=== PATIENT | male | born 1985 | race Caucasian/White ===

== ENCOUNTER 2024-03-19 14:21 | Outpatient (OUT) | payer OTHER, SELFPAY ==
--- NOTE | 2024-03-19 14:22 | VEIN_ITS ---
Patient Name: PETEY WADSWORTH MR#: [id number] : 1985 Exam Date: 03/19/2024 Ordering Doctor: DR DAMIEN LYNCH M.D. RADIOLOGY REPORT PROCEDURE: [facility] - OFFICE VISIT INITIAL COMPARISON: None. PROGRESS NOTES: 36-year-old male who presents with a 20 year history of lower extremity pain swelling and varicose veins which started when he was in high school. The patient complains of dull aching, subcutaneous edema and muscle cramping, bilaterally symmetric. The patient rates the pain as a 3 on a scale of 1-10. The patient's symptoms are exacerbated by sitting and standing and are only partially relieved by rest, leg elevation, oral over the counter analgesics and compression stockings which she has worn for many years. 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 The patient denies any signs and symptoms to suggest arterial ischemia. The patient describes a family history significant for varicose veins in his mother, type 2 diabetes, heart disease, congestive heart failure and hypertension. No current medications. The patient drinks alcohol occasionally. The patient has never smoked. No illicit drug use. Past surgical history is significant for hernia repair. No history of deep venous thrombus or pulmonary embolus. See separate history and physical for medication list. No parotid treatment for varicose or spider veins. Nursing notes were reviewed. After history and physical exam I discussed at length the pathophysiology of venous hypertension and possible treatments, therapies and strategies available. We discussed at length the importance of elevating the lower extremities above the level of the heart, increased physical activity and compression stocking use. We discussed nonsurgical intervention including compression stockings. We discussed surgical interventions including ligation stripping and phlebectomy. We discussed intravenous laser ablation, micro foam chemical ablation and injection sclerotherapy at length. Risks benefits and alternatives were discussed with the patient's questions were answered. I did discuss with the patient that he had severe bilateral deep vein reflux which could not be repaired at this time. I recommended long-term use of bilateral knee or thigh-high 20-30 mm compression stockings. Ultrasound venous reflux study performed the same day was discussed at length with the patient. The report demonstrates severe bilateral great saphenous, moderate bilateral small saphenous and moderate left anterior accessory saphenous vein venous insufficiency with dilatation saphenofemoral/saphenous popliteal junction reflux. Severe bilateral deep vein reflux. Bilateral incompetent perforating veins. Extensive bilateral incompetent varicose veins PHYSICAL EXAM: The right leg demonstrates extensive varicose, reticular and spider veins. Some mild hemosiderin staining below the knee. Mild subcutaneous edema. No active ulceration. The left leg demonstrates extensive varicose, reticular and spider veins. Some mild hemosiderin staining below the knee. Mild subcutaneous edema. No active ulceration. Both thighs, legs and feet were symmetrically warm to the touch. Good posterior tibial and dorsalis pedis pulses were present bilaterally. VEIN/VC Facility EST Comprehensive IMPRESSION: 1. Severe bilateral great, moderate bilateral small and moderate left anterior accessory saphenous vein venous insufficiency with dilatation and saphenofemoral/saphenopopliteal junction reflux 2. Severe bilateral deep vein reflux. Severe bilateral incompetent lower extremity varicose veins 3. Mild lower extremity subcutaneous edema with mild hemosiderin stain 4. No flow significant arterial disease 5. CEAP: C4a, Ep, Asp, Pr PLAN: 1. Endovenous laser ablation left great saphenous vein followed by right great saphenous vein followed by left anterior accessory saphenous vein followed by right small saphenous vein followed by left small saphenous vein 2. Micro foam chemical ablation bilateral incompetent varicose veins 3. Injection sclerotherapy of reticular and spider veins 4. Long-term use of bilateral knee or thigh-high 20-30 mm compression stockings 5. Continue daily physical activity for symptomatic relief Nurse notes, history and physical were reviewed and confirmed, see attached forms. The nurse was present throughout the physical exam and consultation Dictated by: Damien Lynch MD on 03/20/2024 at 07:50 Approved by: Damien Lynch MD on 03/20/2024 at 08:07
--- NOTE | 2024-03-19 14:22 | VEIN_ITS ---
Patient Name: PETEY WADSWORTH MR#: [id number] : 1985 Exam Date: 03/19/2024 Ordering Doctor: DR DAMIEN LYNCH M.D. RADIOLOGY REPORT PROCEDURE: VC EXT VENOUS REFLUX SURYA LMTD COMPARISON: None. INDICATIONS: I83.813 Bilateral painful varicose veins TECHNIQUE: Duplex imaging of the lower extremity to assess the deep and superficial venous system for the presence of deep or superficial venous incompetence and to document the location and severity of disease. The study includes evaluation of the great saphenous vein (GSV), anterior accessory saphenous vein (AASV) and small saphenous vein (SSV). Patient scanned in reverse Trendelenburg and standing. FINDINGS: RIGHT LOWER EXTREMITY: Saphenofemoral Junction Reflux: Yes 13.2mm 3.6 sec GSV: Diam (mm) Reflux/ Time (sec) Proximal Thigh 10.8 Yes 2.4 Mid Thigh 9.9 Yes 3.8 Distal Thigh 10.3 Yes 3.9 Prox Calf 7.5 Yes 2.4 Mid Calf 7.1 Yes 0.8 Saphenopopliteal Junction Reflux: 3.4mm Yes 0.4 SSV: Proximal Calf 2.8 Yes 0.4 Mid Calf 4.6 Yes 2.0 AASV: Not present Thrombi: No acute or chronic thrombus. Compressibility: Normal. Flow: Severe deep venous reflux. Preforator: Distal medial lower leg 7.9 mm, 0.7s reflux. Prox/medial lower leg 5.7 mm with 1.1s reflux. Prox posterior calf 6.9mm with 2.4s reflux. Tech Note: Incompetent varicose vein proximal medial lower leg measures 15.2mm with 1.6s reflux. Varicose vein mid medial lower leg measures 9.7 mm with 0.6s reflux. Medial knee varicose vein measures 12.6 mm with 3.6s reflux. Varicose vein mid medial calf measures 8.6 mm with 0.7s reflux. LEFT LOWER EXTREMITY: Saphenofemoral Junction Reflux: Yes 8.9 mm 3.0 sec GSV: Diam (mm) Reflux/Time (sec) Proximal Thigh 7.9 Yes 3.5 Mid Thigh 7.5 Yes 2.3 Distal Thigh 4.9 Yes 3.2 Prox Calf 8.0 Yes 3.8 Mid Calf 5.6 Yes 2.0 Saphenopopliteal Junction Relux: 2.8 mm Yes 0.8 SSV: Proximal Calf 3.7 Yes 1.7 Mid Calf 4.6 Yes 1.5 AASV: Proximal Thigh 6.6 Yes 2.5 Mid Thigh 6.1 Yes 1.9 Distal Thigh Thrombi: No acute or chronic thrombus. Compressibility: Normal. Flow: Severe deep venous reflux. Amusement Equipment Operator: Dist/medial lower leg 5.0mm with 3.2s reflux. Prox/medial lower leg 5.7 mm with 1.0s reflux. Tech Note: Tortuous AASV. Incompetent varicose vein distal posterior lower leg measures 6.2 mm with 3.7s reflux. Varicose vein proximal medial lower leg measures 6.6mm with 3.1s reflux. Varicose vein proximal medial thigh measures 10.2mm with 2.0s reflux. Varicose vein mid medial thigh measures 7.1 mm with 1.0s reflux. Medial knee varicose vein measures 9.4 mm with 2.7s reflux. CONCLUSION: 1. Severe bilateral great saphenous vein venous insufficiency with dilatation and saphenofemoral junction reflux 2. Moderate bilateral small saphenous vein venous insufficiency with dilatation 3. Moderate left anterior accessory saphenous vein venous insufficiency with dilatation 4. Severe bilateral deep vein reflux 5. Bilateral incompetent perforating veins 6. Bilateral incompetent varicose veins Dictated by: Damien Lynch MD on 03/19/2024 at 15:34 Approved by: Damien Lynch MD on 03/19/2024 at 15:56
--- NOTE | 2024-03-19 15:29 | W.VEIN ---
Discharge Plan Discharge Disposition: Home, Self-Care Outpatient Diagnostics: VC Endovenous Ablation 1VeinLT (Routine) Timeframe: 2 Weeks Facility: [facility] - Location: Vein Center Ordered By: Damien Lynch Plan of Treatment: EVLT of left GSV Patient Instructions: Endovenous Ablation (GEN) Print Language: Swedish Discharge Date/Time: 03/19/24 15:30
--- NOTE | 2024-03-19 15:31 | VEINCLINIC_ITS ---
Vital Signs 03/19/24 16:19 Height 6 ft 3 in Weight 215 kg BMI 59.2 BP 114/62 BP Location Right Brachial BP Position Sitting BP Cuff Size Adult BP Source Manual Cuff Respiration 16 Pulse 62 Pulse Source Monitor Pulse Oximetry (%) 99 Oxygen Delivery Method Room Air Varicose Veins Patient is a 38 year old male in this day with c/o bilateral leg pain and edema and muscle cramping. Patient has worn bilateral leg knee high compression stockings for approximately 2 years with good resolve. Patient has family history of varicose vein disease in his mother. Patient has no history of DVT. Damien Oneal MD personally performed the services described in this documentation, as scribed by Basilio Linn RN in my presence and it is both accurate and complete. IBasilio RN, am scribing for, and in the presence of, Dr. Damien Lynch and in the presence of the patient. thigh: bilateral (symptoms bilaterally equal), knee: bilateral, calf: bilateral, ankle: bilateral and manning: bilateral aching, burning, cramping and tender 4 2 years Worsened in recent months: Yes standing elevating extremities, compression stockings and exercise Reports muscle spasms of leg, limb pain and leg edema History of lower extremity trauma: No Superficial thrombophlebitis: No Family history of varicose veins: yes Has patient had previous lower extremity venous surgery: No Patient has previously received the following treatment(s) for lower extremity varicose veins: Reports none Does patient have a history of : not applicable Does patient intend to have future pregnancies: not applicable Has patient had lower extremity venous scan with relux testing: No Support hose used: Yes Problems walking or doing physical activity: Yes How does it affect you: pain affects activity tolerance Do you walk much: Yes Do you stand much: Yes Review of Systems ROS Narrative Damien Oneal MD personally performed the services described in this documentation, as scribed by Basilio Linn RN in my presence and it is both accurate and complete. Basilio Oneal RN, am scribing for, and in the presence of, Dr. Damien Lynch and in the presence of the patient. Status of ROS 10 or more systems reviewed and unremark able except as noted in history and below Cardiovascular Reports: edema PFSH PFSH Medical History (Updated 03/19/24 @ 16:21 by Basilio Linn) Hernia ?K46.9 - Unspecified abdominal hernia without obstruction or gangrene (ICD- 10) Varicose veins of bilateral lower extremities with pain ?I83.813 - Varicose veins of bilateral lower extremities with pain (ICD-10) Surgical History (Updated 03/19/24 @ 16:21 by Basilio Linn) H/O hernia repair ?Z98.890 - Other specified postprocedural states (ICD-10) ?Z87.19 - Personal history of other diseases of the digestive system (ICD-10) Family History (Updated 03/19/24 @ 15:36 by Basilio Linn) Other Family history of CHF (congestive heart failure) Family history of diabetes mellitus Family history of hypertension Family history of myocardial infarction Pain due to varicose veins of both lower extremities Social History (Updated 03/19/24 @ 15:35 by Basilio Linn) Within the past year, how often did you have a drink containing alcohol: 2-4 times a month Smoking status: Never smoker Non-prescribed substance use: denies use Meds Home Medications and Allergies Home Medications ?Medication ?Instructions ?Recorded ?Confirmed ?Type No Known Home Medications 03/19/24 03/19/24 History Allergies Allergy/AdvReac Type Severity Reaction Status Date / Time No Known Drug Allergies Allergy Verified 03/19/24 16:21 Exam Narrative Exam Narrative: Damien Oneal MD personally performed the services described in this documentation, as scribed by Basilio Linn RN in my presence and it is both accurate and complete. Baislio Oneal RN, am scribing for, and in the presence of, Dr. Damien Lynch and in the presence of the patient. Constitutional Documenting provider has reviewed patient's vital signs: yes Common normals: oriented x3 Lymph Lymphatic: no lymphedema noted Cardio Peripheral pulses: posterior tibial pulses present and dorsalis pedis pulses present Extremity Common normals: normal capillary refill General: calf tenderness and edema Right lower extremity: lower leg Right lower leg: inspection and palpation Left lower extremity: lower leg Left lower leg: inspection and palpation Neuro Common normals: oriented x3 Results Additional Findings Additional findings: Bilateral leg reflux u/s reveals bilateral leg great saphenous vein and left anterior accessory saphenous vein disease along with branch saphenous truncal tributary varicosities Damien Oneal MD personally performed the services described in this documentation, as scribed by Basilio Linn RN in my presence and it is both accurate and complete. I, Basilio Linn RN, am scribing for, and in the presence of, Dr. Damien Lynch and in the presence of the patient. Assessment and Plan Assessment and Plan (1) Varicose veins of bilateral lower extremities with pain: Plan Patient to continue use of bilateral leg knee high compression stockings, exercise, rest, and elevation Patient to return for EVLTs of left GSV right GSV and left AASV. Once EVLT's complete, move forward with microfoam chemical ablation IDamien MD personally performed the services described in this documentation, as scribed by Basilio Linn RN in my presence and it is both accurate and complete. I, Basilio Linn RN, am scribing for, and in the presence of, Dr. Damien Lynch and in the presence of the patient.
[2024-03-19 16:19] VITALS: BP 114/62; PULSE 62; O2SAT 99; BMI 59.2
== END 2024-03-19 15:30 | disposition home or self-care (01) ==
PROVIDERS: PCP Radiology Diagnostic Radiology; Visit Provider Radiology Diagnostic Radiology
DX: I83.813 Varicose veins of bilateral lower extremities with pain (principal)
CPT/HCPCS: 93970; G0463

== ENCOUNTER 2024-03-31 07:56 | Outpatient (OUT) | payer OTHER, SELFPAY ==
--- NOTE | 2024-03-27 15:42 | VEINCLINIC_ITS ---
Vital Signs 03/31/24 08:17 BP 102/60 BP Location Right Brachial BP Position Sitting BP Cuff Size Adult BP Source Manual Cuff Respiration 16 Pulse 78 Pulse Source Monitor Pulse Oximetry (%) 98 Oxygen Delivery Method Room Air Varicose Veins Patient in this day for EVLT of left GSV Damien Oneal MD personally performed the services described in this documentation, as scribed by Basilio Linn RN in my presence and it is both accurate and complete. Basilio Oneal RN, am scribing for, and in the presence of, Dr. Damien Lynch and in the presence of the patient. thigh: bilateral (symptoms bilaterally equal), knee: bilateral, calf: bilateral, ankle: bilateral and manning: bilateral aching, burning, cramping and tender 4 2 years Worsened in recent months: Yes standing elevating extremities, compression stockings and exercise Reports muscle spasms of leg, limb pain and leg edema History of lower extremity trauma: No Superficial thrombophlebitis: No Family history of varicose veins: yes Has patient had previous lower extremity venous surgery: No Patient has previously received the following treatment(s) for lower extremity varicose veins: Reports none Does patient have a history of : not applicable Does patient intend to have future pregnancies: not applicable Has patient had lower extremity venous scan with relux testing: No Support hose used: Yes Problems walking or doing physical activity: Yes How does it affect you: pain affects activity tolerance Do you walk much: Yes Do you stand much: Yes Review of Systems ROS Narrative Damien Oneal MD personally performed the services described in this documentation, as scribed by Basilio Linn RN in my presence and it is both accurate and complete. Basilio Oneal RN, am scribing for, and in the presence of, Dr. Damien Lynch and in the presence of the patient. Status of ROS 10 or more systems reviewed and unremark able except as noted in history and below Cardiovascular Reports: edema PFSH PFS Medical History (Updated 03/27/24 @ 15:48 by Basilio Linn) Phlebitis and thrombophlebitis of superficial vessels of left lower extremity ?I80.02 - Phlebitis and thrombophlebitis of superficial vessels of left lower extremity (ICD-10) Hernia ?K46.9 - Unspecified abdominal hernia without obstruction or gangrene (ICD- 10) Varicose veins of bilateral lower extremities with pain ?I83.813 - Varicose veins of bilateral lower extremities with pain (ICD-10) Surgical History (Updated 03/31/24 @ 08:28 by Basilio Linn) Status post laser ablation of incompetent vein ?Z98.890 - Other specified postprocedural states (ICD-10) H/O hernia repair ?Z98.890 - Other specified postprocedural states (ICD-10) ?Z87.19 - Personal history of other diseases of the digestive system (ICD-10) Family History (Updated 03/19/24 @ 15:36 by Basilio Linn) Other Family history of CHF (congestive heart failure) Family history of diabetes mellitus Family history of hypertension Family history of myocardial infarction Pain due to varicose veins of both lower extremities Social History (Updated 03/19/24 @ 15:35 by Basilio Linn) Within the past year, how often did you have a drink containing alcohol: 2-4 times a month Smoking status: Never smoker Non-prescribed substance use: denies use Meds Home Medications and Allergies Home Medications ?Medication ?Instructions ?Recorded ?Confirmed ?Type No Known Home Medications 03/19/24 03/19/24 History Allergies Allergy/AdvReac Type Severity Reaction Status Date / Time No Known Drug Allergies Allergy Verified 03/19/24 16:21 Exam Narrative Exam Narrative: Damien Oneal MD personally performed the services described in this documentation, as scribed by Basilio Linn RN in my presence and it is both accurate and complete. Basilio Oneal RN, am scribing for, and in the presence of, Dr. Damien Lynch and in the presence of the patient. Constitutional Documenting provider has reviewed patient's vital signs: yes Common normals: oriented x3 Lymph Lymphatic: no lymphedema noted Cardio Peripheral pulses: posterior tibial pulses present and dorsalis pedis pulses present Extremity Common normals: normal capillary refill General: calf tenderness and edema Right lower extremity: lower leg Right lower leg: inspection and palpation Left lower extremity: lower leg Left lower leg: inspection and palpation Neuro Common normals: oriented x3 Assessment and Plan Assessment and Plan (1) Varicose veins of bilateral lower extremities with pain: Plan f/u evaluation with physician along with left leg limited u/s Damien Oneal MD personally performed the services described in this documentation, as scribed by Basilio Kaveh RN in my presence and it is both accurate and complete. I, Basilio Linn RN, am scribing for, and in the presence of, Dr. Damien Lynch and in the presence of the patient. Procedures Procedure Instructions Procedures Plan of care: Risks and benefits of the procedure were discussed at length and informed written consent was obtained.? Time-out completed for verification of correct patient, procedure and site.? Staff present during time-out: Basilio Linn RN,? Damien Lynch MD, Elinor Gamez [facility] Time Out Time__829 Patient prepped and procedure performed in usual sterile fashion. Risk of injury related to use of Diode laser and/or laser devices?__CR___ ? Serial number of laser used :? [id number] Control panel self test performed, electrical cords in good condition, floor is dry, basin of water available, fire extinguisher in close proximity_CR__ Polycarbonate goggles available and Laser warning signs outside of doors___CR__ Eye protection provided to patient and staff in room_CR___ Use of laser retardant drapes and dull blackened instruments as directed__CR___ Use of nonflammable prep solutions and use of saline soaked sponges to protect tissues as indicated _CR___ Length __68 cm Laser operated by __Dr. Lynch Physician verbal confirmation laser locked in place__CR__ Laser start time (date and time) __03/31/2024@__0845 Laser stop time(date and time) __03/31/2024@_0852 [place] _8.0___ Average laser use __3298 Joules Average laser use___412 seconds Pulse continuous ___CR_? Pulse intermittent ___ Amount of Tumescent used _275cc Evaluated patient for signs and symptoms of electrical injury __CR___ ? Skin clear at insertion site __CR___ Patient tolerated procedure well.? Left leg Coban dressing applied to access site.? Applied Left thigh high leg compression stocking. Will return on 04/07/2024 for Left leg limited venous ultrasound and exam. IDamien MD personally performed the services described in this documentation, as scribed by Basilio Linn RN in my presence and it is both accurate and complete. I, Basilio Linn RN, am scribing for, and in the presence of, Dr. Damien Lynch and in the presence of the patient.
--- NOTE | 2024-03-27 15:48 | W.VEIN ---
Discharge Plan Discharge Disposition: Home, Self-Care Outpatient Diagnostics: VC Facility EST LMTD (Routine) Timeframe: 2 Weeks Facility: [facility] - Location: Vein Center Ordered By: Damien Lynch VC EXT Venous LT Limited (Routine) Timeframe: 2 Weeks Facility: [facility] - Location: Vein Center Ordered By: Damien Lynch Follow Up Appointments: 04/07/2024 Plan of Treatment: f/u evaluation with physician along with left leg limited u/s Patient Instructions: Endovenous Ablation (DC) Print Language: Yoruba Discharge Date/Time: 03/31/24 08:31
[2024-03-31] MEDS: 0.9 % SODIUM CHLORIDE 500 ML, LIDOCAINE HCL 20 ML, SODIUM BICARBONATE 10 MEQ INJ (07:57)
[2024-03-31] MEDS: LIDOCAINE HCL 1% 100 MG/10 ML MDV INJ (07:57)
--- NOTE | 2024-03-31 07:58 | VEIN_ITS ---
[address] [address] Patient Name: PETEY WADSWORTH MRN: [id number] date: 1985 Sex: M Assigned Patient Location: Current Patient Location: Accession/Order Number: [id number] Exam Date: 03/31/2024 08:02 Report Date: 03/31/2024 09:30 At the request of: MARYAM JORDAN Procedure: VC Endovenous Ablation 1VeinLT EXAMINATION: VC Endovenous Ablation 1Vein, left great saphenous vein HISTORY: I83.813 - Varicose veins of bilateral lower extremities w... COMPARISON: No relevant comparison available. TECHNIQUE: The risks and benefits of the procedure had been previously discussed, and were rediscussed at length. Informed written consent was obtained. Oneyda Gamez and Basilio Linn assisted. Time out procedure was performed. The left lower extremity was prepared and draped in the usual sterile fashion to allow knee flexion in the sterile field. Duplex ultrasound probe was draped in a sterile cover, sterile transmission gel was used. Venous mapping was performed with the areas of dilation and large tributaries marked. The total length was 68 cm from the entry 5 cm above the medial malleolus to 3 cm below the saphenofemoral junction. The diameter of the greater saphenous vein ranged from 4-8 mm. A 30 gauge needle and 1% buffered lidocaine was used to anesthetize the entry site. A 4 mm incision was made with a scalpel and the saphenous vein was entered percutaneously under direct ultrasound guidance with a micropuncture set, a single stick was successful in gaining access. A micro-guide wire was inserted and the needle removed. A micro-set including a dilator was inserted over the microwire and the needle and dilator were removed. A 0.018 guide wire was inserted through the micro-set and threaded through the saphenous vein to the saphenofemoral junction. The dilator was removed and an introducer sheath was inserted over the wire until the end of the sheath entered the saphenofemoral junction. The dilator and wire were removed and the 600 micron fiber was introduced and placed and positioned so that it extended beyond the sheath and was 3 cm peripheral to the saphenofemoral femoral junction. Final position of the fiber was determined by ultrasound guidance and duplex imaging. Tumescent anesthetic was delivered by ultrasound guidance. 275 cc of fluid was delivered along the entire course of the saphenous vein. The solution consisted of 1000 cc of normal saline with 40 mL of 1% lidocaine and 20 mL of sodium bicarbonate. A final positioning check was made. The energy source was turned on by means of the foot pedal and the fiber and sheath were withdrawn. The total number of Joules delivered was 3298. The laser was active for 412 seconds under continuous pulse, average laser use of 8 J. Laser start time 845 AM 03/31/2024. Laser stop time 852AM 03/31/2025. A duplex ultrasound revealed compressibility and flow at the saphenofemoral junction immediately after the procedure. Hemostasis at the access site was achieved. The skin incision of the saphenous vein was closed with a 4 x 4. A compression stocking was applied. Postop instructions were given. A follow up appointment was recommended and scheduled. The patient tolerated the procedure well and was discharged in good condition. VEIN/VC Endovenous Ablation 1VeinLT IMPRESSION: Technically successful endovenous laser ablation of the left great saphenous vein Electronically authenticated by: MARYAM JORDAN Date: 03/31/2024 09:30
[2024-03-31 08:17] VITALS: BP 102/60; PULSE 78; O2SAT 98
== END 2024-03-31 08:31 | disposition home or self-care (01) ==
LOC: VC 07:57
PROVIDERS: PCP Radiology Diagnostic Radiology; Visit Provider Radiology Diagnostic Radiology
DX: I83.813 Varicose veins of bilateral lower extremities with pain (principal)
CPT/HCPCS: 36478

== ENCOUNTER 2024-04-07 14:22 | Outpatient (OUT) | payer OTHER, SELFPAY ==
[2024-04-07 09:19] VITALS: BMI 26.9
--- NOTE | 2024-04-07 09:19 | V.VEINS.HP ---
Vital Signs 04/07/24 09:19 Height 6 ft 3 in Weight 97.522 kg BMI 26.9 Varicose Veins Patient in today for follow up ultrasound of left lower extremity following EVLT of left GSV completed on 03/31/24. Jeremías Oneal MD personally performed the services described in this documentation, as scribed by Elinor Gamez RDMS in my presence and it is both accurate and complete. Elinor Oneal RDMS, am scribing for, and in the presence of, Dr. Jeremías Silveira and in the presence of the patient. thigh: bilateral (symptoms bilaterally equal), knee: bilateral, calf: bilateral, ankle: bilateral and manning: bilateral aching, burning, cramping and tender 4 2 years Worsened in recent months: Yes standing elevating extremities, compression stockings and exercise Reports muscle spasms of leg, limb pain and leg edema History of lower extremity trauma: No Superficial thrombophlebitis: No Family history of varicose veins: yes Has patient had previous lower extremity venous surgery: No Patient has previously received the following treatment(s) for lower extremity varicose veins: Reports none Does patient have a history of : not applicable Does patient intend to have future pregnancies: not applicable Has patient had lower extremity venous scan with relux testing: No Support hose used: Yes Problems walking or doing physical activity: Yes How does it affect you: pain affects activity tolerance Do you walk much: Yes Do you stand much: Yes Review of Systems ROS Narrative Jeremías Oneal MD personally performed the services described in this documentation, as scribed by Elinor Gamez RDMS in my presence and it is both accurate and complete. Elinor Oneal RDMS, am scribing for, and in the presence of, Dr. Jeremías Silveira and in the presence of the patient. Status of ROS 10 or more systems reviewed and unremarkable except as noted in history and below Cardiovascular Reports: edema PFSH [facility] Medical History (Updated 03/27/24 @ 15:48 by Basilio Linn) Phlebitis and thrombophlebitis of superficial vessels of left lower extremity ?I80.02 - Phlebitis and thrombophlebitis of superficial vessels of left lower extremity (ICD-10) Hernia ?K46.9 - Unspecified abdominal hernia without obstruction or gangrene (ICD-10) Varicose veins of bilateral lower extremities with pain ?I83.813 - Varicose veins of bilateral lower extremities with pain (ICD-10) Surgical History (Updated 03/31/24 @ 08:28 by Basilio Linn) Status post laser ablation of incompetent vein ?Z98.890 - Other specified postprocedural states (ICD-10) H/O hernia repair ?Z98.890 - Other specified postprocedural states (ICD-10) ?Z87.19 - Personal history of other diseases of the digestive system (ICD-10) Family History (Updated 03/19/24 @ 15:36 by Basilio Linn) Other Family history of CHF (congestive heart failure) Family history of diabetes mellitus Family history of hypertension Family history of myocardial infarction Pain due to varicose veins of both lower extremities Social History (Updated 03/19/24 @ 15:35 by Basilio Linn) Within the past year, how often did you have a drink containing alcohol: 2-4 times a month Smoking status: Never smoker Non-prescribed substance use: denies use Meds Home Medications and Allergies Home Medications ?Medication ?Instructions ?Recorded ?Confirmed ?Type No Known Home Medications 03/19/24 03/19/24 History Allergies Allergy/AdvReac Type Severity Reaction Status Date / Time No Known Drug Allergies Allergy Verified 03/19/24 16:21 Exam Narrative Exam Narrative: Jeremías Oneal MD personally performed the services described in this documentation, as scribed by Elinor Gamez RDMS in my presence and it is both accurate and complete. Elinor Oneal RDMS, am scribing for, and in the presence of, Dr. Jeremías Silveira and in the presence of the patient. Constitutional Documenting provider has reviewed patient's vital signs: yes Common normals: oriented x3 Lymph Lymphatic: no lymphedema noted Cardio Peripheral pulses: posterior tibial pulses present and dorsalis pedis pulses present Extremity Common normals: normal capillary refill General: calf tenderness and edema Right lower extremity: lower leg Right lower leg: inspection and palpation Left lower extremity: lower leg Left lower leg: inspection and palpation Neuro Common normals: oriented x3 Results Imaging Venous US: Radiologist's impression: Heat induced thrombus in left GSV Jeremías Oneal MD personally performed the services described in this documentation, as scribed by Elinor Gamez RDMS in my presence and it is both accurate and complete. Jm, Elinor Gamez RDMS, am scribing for, and in the presence of, Dr. Jeremías Silveira and in the presence of the patient. Assessment and Plan Assessment and Plan (1) Phlebitis and thrombophlebitis of superficial vessels of left lower extremity: Plan Plan is for patient to return for EVLT of right GSV on I, Jeremías Silveira MD personally performed the services described in this documentation, as scribed by Elinor Gamez RDMS in my presence and it is both accurate and complete. I, Elinor Gamez RDMS, am scribing for, and in the presence of, Dr. Jeremías Silveira and in the presence of the patient.
--- NOTE | 2024-04-07 14:22 | VEIN_ITS ---
Patient Name: PETEY WADSWORTH MR#: [id number] : 1985 Exam Date: 04/07/2024 Ordering Doctor: DR MARYAM JORDAN M.D. RADIOLOGY REPORT PROCEDURE: FACILITY [facility] - OFFICE VISIT FOLLOW UP COMPARISON: None. PROGRESS NOTES: The patient reports improvement in leg symptoms. There has been interval reduction in varicosities. The patient has followed our recommendations to walk 20-30 minutes once or twice per day since the procedure. Physical exam demonstrates decrease in varicosities of the leg. Persistent varicosities are identified along the legs bilaterally. Review of the ultrasound performed the same day demonstrates occlusive thrombus extending throughout the treated vein(s), see separate report, consistent with a successful ablation. No thrombus extending into or beyond the saphenofemoral junction. The patient expressed a desire to proceed with treatment of remaining incompetent varicosities. The patient was informed that treatment was a process and would require several procedures/sessions. VEIN/ Facility EST [facility] IMPRESSION: 1. Successful ablation of the left great saphenous vein(s). 2. Persistent varicose veins and lower extremity symptoms. PLAN: 1. Endovenous laser ablation of right great saphenous vein. Nurse notes, history and physical were reviewed and confirmed, see attached forms. The nurse was present throughout the physical exam and consultation Dictated by: Jeremías Silveira M.D. on 04/07/2024 at 15:20 Approved by: Jeremías Silveira M.D. on 04/07/2024 at 15:20
--- NOTE | 2024-04-07 14:22 | VEIN_ITS ---
Patient Name: PETEY WADSWORTH MR#: [id number] : 1985 Exam Date: 04/07/2024 Ordering Doctor: DR MARYAM JORDAN M.D. RADIOLOGY REPORT PROCEDURE: VC EXT VENOUS LT LIMITED COMPARISON: None. INDICATIONS: I80.02 - Phlebitis and thrombophlebitis of superficial ve... TECHNIQUE: Lower extremity lewis scale and Duplex Doppler evaluation of the deep venous system from the inguinal ligament through the calf veins. FINDINGS: REGION: Left lower extremity. THROMBI: Negative for DVT. Heat induced thrombus visualized 3.0cm from the SFJ. The heat induced thrombus extends from groin to distal calf. COMPRESSIBILITY: Non-compressible segments corresponding to thrombus FLOW: Areas of no flow corresponding to thrombus OTHER: CONCLUSION: 1. Successful post ablation occlusion of left great saphenous vein. Dictated by: Jeremías Silveira M.D. on 04/07/2024 at 15:18 Approved by: Jeremías Silveira M.D. on 04/07/2024 at 15:19
--- NOTE | 2024-04-07 14:38 | VEINCLINIC_ITS ---
Vital Signs 04/07/24 09:19 Height 6 ft 3 in Weight 97.522 kg BMI 26.9 Varicose Veins Patient in this day for follow up ultrasound post EVLT of left GSV Jeremías Oneal MD personally performed the services described in this documentation, as scribed by Angelina Rosen RVT, RDMS in my presence and it is both accurate and complete. Angelina Oneal RVT, RDMS am scribing for, and in the presence of, Dr. Jeremías Silveira and in the presence of the patient. thigh: bilateral (symptoms bilaterally equal), knee: bilateral, calf: bilateral, ankle: bilateral and manning: bilateral aching, burning, cramping and tender 4 2 years Worsened in recent months: Yes standing elevating extremities, compression stockings and exercise Reports muscle spasms of leg, limb pain and leg edema History of lower extremity trauma: No Superficial thrombophlebitis: No Family history of varicose veins: yes Has patient had previous lower extremity venous surgery: No Patient has previously received the following treatment(s) for lower extremity varicose veins: Reports none Does patient have a history of : not applicable Does patient intend to have future pregnancies: not applicable Has patient had lower extremity venous scan with relux testing: No Support hose used: Yes Problems walking or doing physical activity: Yes How does it affect you: pain affects activity tolerance Do you walk much: Yes Do you stand much: Yes Review of Systems ROS Narrative Jeremías Oneal MD personally performed the services described in this documentation, as scribed by Angelina Rosen RVT, RDMS in my presence and it is both accurate and complete. Angelina Oneal RVT, RDMS, am scribing for, and in the presence of, Dr. Jeremías Silveira and in the presence of the patient. Status of ROS 10 or more systems reviewed and unremark able except as noted in history and below Cardiovascular Reports: edema PFSH PFSH Medical History (Updated 03/27/24 @ 15:48 by Basilio Linn) Phlebitis and thrombophlebitis of superficial vessels of left lower extremity ?I80.02 - Phlebitis and thrombophlebitis of superficial vessels of left lower extremity (ICD-10) Hernia ?K46.9 - Unspecified abdominal hernia without obstruction or gangrene (ICD- 10) Varicose veins of bilateral lower extremities with pain ?I83.813 - Varicose veins of bilateral lower extremities with pain (ICD-10) Surgical History (Updated 03/31/24 @ 08:28 by Basilio Linn) Status post laser ablation of incompetent vein ?Z98.890 - Other specified postprocedural states (ICD-10) H/O hernia repair ?Z98.890 - Other specified postprocedural states (ICD-10) ?Z87.19 - Personal history of other diseases of the digestive system (ICD-10) Family History (Updated 03/19/24 @ 15:36 by Basilio Linn) Other Family history of CHF (congestive heart failure) Family history of diabetes mellitus Family history of hypertension Family history of myocardial infarction Pain due to varicose veins of both lower extremities Social History (Updated 03/19/24 @ 15:35 by Basilio Linn) Within the past year, how often did you have a drink containing alcohol: 2-4 times a month Smoking status: Never smoker Non-prescribed substance use: denies use Meds Home Medications and Allergies Home Medications ?Medication ?Instructions ?Recorded ?Confirmed ?Type No Known Home Medications 03/19/24 03/19/24 History Allergies Allergy/AdvReac Type Severity Reaction Status Date / Time No Known Drug Allergies Allergy Verified 03/19/24 16:21 Exam Narrative Exam Narrative: Jeremías Oneal MD personally performed the services described in this documentation, as scribed by Angelina Rosen RVT, RDMS in my presence and it is both accurate and complete. Angelina Oneal RVT, RDMS, am scribing for, and in the presence of, Dr. Jeremías Silveira and in the presence of the patient. Constitutional Documenting provider has reviewed patient's vital signs: yes Common normals: oriented x3 Lymph Lymphatic: no lymphedema noted Cardio Peripheral pulses: posterior tibial pulses present and dorsalis pedis pulses present Extremity Common normals: normal capillary refill General: calf tenderness and edema Right lower extremity: lower leg Right lower leg: inspection and palpation Left lower extremity: lower leg Left lower leg: inspection and palpation Neuro Common normals: oriented x3 Results Imaging Venous US: Radiologist's impression: The ultrasound demonstrates Heat induced thrombus visualized 3.0cm from the SFJ. The heat induced thrombus extends from groin to distal calf. Assessment and Plan Assessment and Plan (1) Phlebitis and thrombophlebitis of superficial vessels of left lower extremity: Plan Patient in today for follow up ultrasound of lower extremity following treatment of EVLT of left leg GSV completed on 03/31/24. Jeremías Oneal MD personally performed the services described in this documentation, as scribed by Angelina Rosen RVT, RDMS in my presence and it is both accurate and complete. Angelina Oneal RVT, RDMS, am scribing for, and in the presence of, Dr. Jeremías Silveira and in the presence of the patient.
--- NOTE | 2024-04-07 14:40 | P.DS_ITS ---
Discharge Plan Discharge Disposition: Home, Self-Care Outpatient Diagnostics: VC Endovenous Ablation 1VeinRT (Routine) Timeframe: 2 Weeks Facility: [facility] - Location: [facility] Center Ordered By: Jeremías Silveira Follow Up Appointments: 04/25/24 Plan of Treatment: EVLT of right leg GSV Print Language: Ken[place] Discharge Date/Time: 04/07/24 15:26
--- OUTSIDE RECORDS SUMMARY | 2024-04-07 14:42 | XMS_ITS | CCD ---
Author Organization [facility] Care Team Providers Care Press Cleaner Name Role Phone Terese Duff Unavailable NIKKI, DR MARYAM Grigsby Consulting Unavailable NIKKI, DR MARYAM Grigsby Attending Unavailable NIKKI, DR MARYAM Grigsby Admitting Unavailable NIKKI, DR MARYAM Grigsby Consulting Unavailable NIKKI, DR MARYAM Grigsby Attending Unavailable NIKKI, DR MARYAM Grigsby Admitting Unavailable Danyel, Cheyanne Coon Attending Unavailable Danyel, Cheyanne Coon Admitting Unavailable Jacqueline Owens Primary Care Unavailable MD Jacqueline Owens Primary Care Provider Danyel, [facility] Cheyanne Coon Emergency Provider Unavailable Primary Care Provider Unavailguilherme coon PACK BRANDON Referring Unavailable YULIANA AGUILAR Attending Unavailable PACK, BRANDON Attending Unavailable PACK, BRANDON Attending Unavailable Unavailable Primary Care Provider UnavailJacqueline Mckinney MD Primary Care Provider CATIE CARRILLO Attending Unavailable CATIE CARRILLO Referring Unavailable AMADA BLEVINS Attending Unavailable CATIE CARRILLO Attending Unavailable CATIE CARRILLO Referring Unavailable Medications Current Medications Medication Drug Class(es) Dates Sig (Normalized) Sig (Original) acetaminophen 500 mg oral capsule (3 sources) Acetaminophen 50 0 mg cap Take 500 mg by mouth as needed. Active Comment on above: Take 500 mg by mouth as needed. [id number] 200 actuat albuterol 0.09 mg/actuat metered dose inhaler (6 sources) beta2-Adrenergic Agonist Start: 03-31-2023 End: 03-30-2024 take 2 puff(s) by inhalation every four hours for wheezing albuterol HFA 90 mcg/act inhaler Indications: Acute bronchitis, unspecified organism Inhale 2 puffs every 4 (four) hours if needed for wheezing 18 g 11 03/31/2023 03/30/2024 Active amoxicillin 875 mg oral tablet (1 source) Penicillin-class Antibacterial Start: 09-19-2021 take 1 tablet by mouth every twelve hours Amoxicillin 875 MG 1 tablet Orally every 12 hrs for 7 days Sep, Active azithromycin 250 mg oral tablet (6 sources) Macrolide Antimicrobial Start: 03-31-2023 azithromycin (Zithromax) 250 MG tablet Indications: Acute bronchitis, unspecified organism Take two tab on day one, one tab per day on day two through through five 6 tablet 03/31/2023 Active cephalexin 500 mg oral capsule (1 source) Cephalosporin Antibacterial Start: 11-05-2022 take 500 mg by mouth four times daily Cephalexin Active 500 MG PO Four times daily 40 November 05, 2022 12:00am levoFLOXacin 750 mg oral tablet (1 source) Quinolone Antimicrobial Start: 11-05-2022 take 750 mg by mouth once daily Levofloxacin Active 750 MG PO Daily 7 November 05, 2022 12:00am linaclotide 0.29 mg oral capsule (2 sources) Guanylate Cyclase-C Agonist Start: 06-13-2023 take 1 capsule by mouth once daily in the morning linaCLOtide (LINZESS) 290 mcg capsule Take 1 capsule by mouth daily at 6 am. 30 capsule 5 06/13/2023 Active Comment on above: Take 1 capsule by mo [facility] daily at 6 am. pantoprazole 40 mg delayed release oral tablet (2 sources) Proton Pump Inhibitor Start: 08-21-2023 take 1 tablet by mouth once daily pantoprazole DR (PROTONIX) 40 mg tablet Take 1 tablet by mouth once daily. 30 tablet 2 08/21/2023 Active Start: 06-13-2023 End: 06-20-2023 take 1 tablet by mouth once daily pantoprazole DR (PROTONIX) 40 mg tablet Take 1 tablet by mouth once daily. 30 tablet 5 06/13/2023 06/20/2023 Discontinued Comment on above: [facility] Completed/Discontinued Medications Medication Drug Class(es) Dates Sig (Normalized) Sig (Original) fluticasone propionate 0.05 mg/actuat metered dose nasal spray (1 source) Corticosteroid Start: 02-28-202 1 take 1 spray(s) nasal route once daily Fluticasone Propionate 50 MCG/ACT 1 spray in each nostril Nasally Once a day for 30 day(s) May, Not-Taking methylPREDNISolone 4 mg oral tablet (1 source) Corticosteroid Start: 1 Medrol (Daryl) 4 MG half of daily dose in the morning with food and the rest at night with food Orally May, Not-Taking omeprazole 20 mg delayed release oral capsule (17 sources) Proton Pump Inhibitor Start: 3 End: 4 take 1 capsule by mouth once daily omeprazole (PRILOSEC) 20 mg capsule Indications: Gastroesophageal reflux disease, unspecified whether esophagitis present Take 1 capsule by mouth once daily. 30 capsule 2 03/14/2023 06/20/2023 Discontinued Start: 10-18-2022 take 1 capsule by mo uth before mealtime omeprazole (PriLOSEC) [address] capsule Indications: Gastroesophageal reflux disease without esophagitis Take 1 capsule (40 mg) by mouth in the morning. Take before meals. 90 capsule 1 10/18/2022 Active Comment on above: Take 1 capsule by mo uth once daily. take 1 capsule by mo uth once daily Problems Active Problems Problem Classification Problem Date Documented Da te Episodic/Chronic Cardiac dysrhythmias (6 sources) Irregular heart beat; Translations: [Cardiac arrhythmia, unspecified] Onset: 3 10-18-2022 Chronic Esophageal disorders (10 sources) Gastroesophageal reflux disease; Translations: [Gastro-esophageal reflux disease without esophagitis] Onset: 3 03-14-2023 Chronic Fracture of lower limb (1 source) Fracture of phalanx of foot; Translations: [Unspecified fracture of left toe(s), initial encounter for closed fracture] 11-05-2022 Episodic Gastrointestinal hemorrhage (5 sources) Hematochezia; Translations: [Melena] 04-25-2018 Episodic Joint disorders and dislocations; trauma-related (6 sources) Derangement of left knee; Translations: [Unspecified internal derangement of left knee] 02-01-2024 Chronic Open wounds of extremities (1 source) Laceration of foot; Translations: [Laceration without foreign body, unspecified foot, initial encounter] 11-05-2022 Episodic Other gastrointestinal disorders (3 sources) Constipation; Translations: [Constipation, unspecified] 04-25-2018 Episodic Other gastrointestinal disorders (1 source) Diarrhea; Translations: [Diarrhea, unspecified] 06-01-2023 Episodic Other lower respiratory disease (1 source) Cough; Translations: [Cough] Episodic Other nervous system disorders (6 sources) Chronic pain; Translations: [Other chronic pain] Onset: 3 10-18-2022 Chronic Other non-traumatic joint disorders (4 sources) Pain in left knee; Translations: [Pain in joint, lower leg] 02-03-2024 Episodic Other upper respiratory disease (6 sources) Allergic rhinitis; Translations: [Allergic rhinitis, unspecified] Onset: 3 10-18-2022 Chronic Spondylosis; intervertebral disc disorders; other back problems (6 sources) Lumbar arthritis; Translations: [Spondylosis without myelopathy or radiculopathy, lumbar region] Onset: 3 10-18-2022 Chronic Superficial injury; contusion (1 source) Contusion of foot; Translations: [Contusion of right foot, initial encounter] 11-05-2022 Episodic Unclassified (1 source) Unspecified fracture of right toe(s), initial encounter for closed fracture; Translations: [Unspecified fracture of right toe(s), initial encounter for closed fracture] Onset: 3 Varicose veins of lower extremity (4 sources) Varicose veins of bilateral lower extremities with pain; Translations: [VARICOSE VNS SURYA LOW EXTREM W/PAIN] Onset: 3 Episodic Past or Other Problems Problem Classification Problem Date Documented Da te Episodic/Chronic Otitis media and related conditions (1 source) Otitis media, unspecified, right ear Onset: 09-19-2021 Resolved: 09-19-2021 Episodic Unclassified (1 source) Cough R05.9 Onset: 09-19-2021 Resolved: 09-19-2021 Viral infection (1 source) COVID-19 Onset: 09-19-2021 Resolved: 09-19-2021 Results Test Name Value Interpretation Reference Range Facility MR KNEE LEFT WO IV CONTRASTo n 02-22-2024 MR KNEE LEFT WO IV CONTRAST EXAMINATION/TECHNIQU E: MR KNEE LEFT WO IV CONTRAST HISTORY: Left knee pain. Lateral pain for 6 to 8 months. No recent injury. COMPARISON: Radiographs 12/20/2023. RESULT: MENISCI: Medial Meniscus: Intact Lateral Meniscus: Intact LIGAMENTS: ACL, PCL, MCL, and LCL complex intact. CARTILAGE: Small area of full-thickness fissuring involving the central trochlea. TENDONS: Distal quadriceps intact. Patellar tendon intact. Popliteus intact. BONES AND MARROW: No evidence of fracture or bone marrow replacing process. MUSCLES: Muscle bulk and signal intensity are normal. JOINT FLUID AND SYNOVIUM: No joint effusion. No synovitis. No Fuentes's cyst. OTHER: Varicose vessels medially. IMPRESSION: Intact menisci and ligaments. Mild trochlear chondromalacia. ELECTRONICALLY SIGNED BY: Sincere Mcnair MD Normal Not Available Comment on above: Order Comment: MRI L T knee w/o at [facility]. Orbits if needed. Eval for meniscus tear. XR Knee - left 1 or 2 Viewso n 12-20-2023 Imaging Result: December 19, 2013 x-rays AP weight-bearing bilateral knees and lateral of the left knee demonstrate open joint spaces without collapse. No areas of uike-hq-fhys. No sclerosis. No fractures detected. Neutral alignment. Impression: No acute findings on x-rays of the left knee Trace Levy D.O. [facility] Radiology Study observation (narrative) [facility] XR Knee - left 1 or 2 ViewsO rdered By: Anthony Levy on 12-20-2023 [facility] [employer] Work Phone: SURGICAL PATHOLOGYOrdered By : Tara Wilkinson on 06-13-2023 Case Report Surgical Pathology Report Case: [id number] Authorizing Provider: Anthony Mejia MD Collected: 06/12/2023 09:40 AM Ordering Location: Ambulatory Surgery Received: 06/12/2023 10:31 PM Pathologist: Tara Wilkisnon MD Specimens: A) - DUODENUM BIOPSY B) - RECTAL POLYP, x2 [facility] Work Phone: FINAL DIAGNOSIS t5cewAJkYMMryQRkKDFz PBukpaYbJHUxfHWbH0Pk pwiiWBjxLT6hCV1zeQwh pMVlkUCjHTJlZuSjv3lh f180nYVxl9btNXKOljnb yDu7zYawH44qt8M3Moke F65chYLwYNN7GFQdAUNm aNVqBATmPZN5FDDuxRGa V6qhZXSrIR8saynjHUuo LUktZTKtnBC7XMVmgSBm U1HcWDPbZDkiMRYkvxx6 HjRiSh9rrCXzzCybTIbg YXJkXHBsYWluXGZzMjAg DK6wNZN8b5WjldCsNVDf bN2ui5z7NXPsovLmVVY9 d0JbybFgRI20F75mQCU9 vFHfJU5rVMRhN68lJpey AB27SPDhVMwnr0W9xEUv GJz4NCOlzZrcyt7kuDYk VY1fTj7sGOBhSCGlI6Cb z4PlC9GzqXKoNGDen8Ep n5Vqg1ViMLHrNRBmuDKd tx5pzRJcFJTjgyJRAdDy UmVjdGFsIHBvbHlwIHgg MiqkIvtoeFR6PnqeSUJo SXBQqlVelLVcsFWcx0Eq aHlwZXJwbGFzdGljIHBv bHlwLlxwYXJ9 [facility] Work Phone: Gross Description r4cuwSGhBEZpcEYOTFL4 YFIfBU2qkWxyrVv3lGdc KWUwedT5eOIoSJpvu6qr PMB0c0glfzUPLhxzEMBo MB8tCUdzGQYdND1dMuJh XGRlZmYxXHBhcGVydzEy NjCoOJUrcDQcaJE6FVVi DL8cxvotCOkoRKjwZCEj rlU7JYZpzFKxF3FyBXKo DW7jqniqLCQ1GLWULshf Pm4aeWTehKkjLmWrIfJj BHMjOFFkAPDaq0tzzuBL cnrtxJy9lT1QTCExA3Ki UY9Hg8hkTNHawFSbCTT2 PLfrx7mbCCytAWH4NJHd NTBwMMDoDI8JSoGwROX6 TNyrCOK1HmH7GOk3YMDT MQBbFXNgGkH7QMDoKFi0 OTkgXFxuaCBcXHQgMSBc DXPlRSvclyK2n7weGQWe jOXlKCG2PTkck4tqFOeb NNY3DNIlLvLaENAwSU0O QrPiCFX9AEeqWIO3PzF3 QBw6EPZWPhKhUiLgEQq2 QlVmNyLzRBx3EIl7TEiX JwXmKiB5DwXwAqliImQ1 NDYyNyBcXHQgMiBcXHNz DBKiMQffrPKuRU7fkFwx NXVnPO7WWFKoOHoqSYLi ZvHgMR3yNYJYIIAUYI5v GtiYFVWDFJc4vfYjSWVr smXDNizlDWPxEW8NFTCk CQkhZMm9grTuNLQzRjZa HEUvI67yf8NQc4LxYX2C PZm3xkHlocieCWTzVAYb vHFEm4QrAHFWOebnlvDa UULzK2UvrzUxCFmbINAn bt8sbZhhGY1pAEealKjj TWTmRASuoLu4cTOwSXCl eHJxPSYed6OflZQcYAQm g9H3WZMwi3U9CWDiA4nj ETqqtTtiAmF4shXbJcHq cJTtDyDewKBtJlVpE10m VHIicOQfhYcph5QpuPc0 fGBsKPzuIJ9qUASeLUGu LWQ1ZR8CGerhrHnnPwCm kKXuRlF1DSXslXCrYAI6 EZ1qeSylOXBxXVk4XKkm MQJrT7DoK1NlCMyqZhVm XGlkIDUxMDAyIFxcZGIg W9DXLJMzLCc3TGLcBeOx OSy3AFl4TD6TKvWbMEV3 MBM5OsMwJrRyGWa3OVjy KY8CJXNaRpF6XBP4FRc3 WJX8LtS4KDbyoPZqCJbo d8VkBlLbCBIzWCxfpzX5 HLNbilXmt1HlNKVgRSWj U9orGyPbNZJCIuqwtrHb LVYnMCSTH7XZAHCNJ2sQ UFxwYXIgDQpccGFyZCAN ClxwbGFpblxsdHJjaFxm hnHzCBKikCEYEKA8XF2m LEVGBusczSCpMADzh6Gr MFxlcGljWHNiMzAgDQpc ZnMyMCBSZWNlaXZlZCBp qxCdc6KaXCrrosJpupIg UWY1MBAueaBnnSteXDCl QKVqcoVoTsT6RT7prI1r aJIvFHNsi3ddCQQdp4Z1 SDGah1X6QQJrQ5sgLBwk rGxoExD5cgOgJyNkxGOc GaNkcHUkGpJkH68bSXNj nGNplQtga8UurRl1pUHb UMckFI6mXUYmFUXySXV9 TL0kDJGxvkHRNfdmZWPq JYp6knGdgtHFEqpkECFq GGaAPmLFEBRenFG2QGYn STH0FLZ9TAHhYZ5skFUa EZ6ZVCWcjdGSQioeREIh MWSmkLTYn2MsGBWGFezk e6OnFMJ1NV5ovmS3vN6y YKNppkAdjb9dCERrbJNJ qRA9NCehtkJrU5zgidvm YKM3DLFbLAU0W6yqIXHZ rgRlCODGyNC9STzgdzEb AA0UAAF3NIz1RLgoBCJt D73eo3OHn0Wnt6ffvNxe c5AycRWwNM85CPUwjDUj YGT8EB2ldFmvLDElLGyw zMNfTKUMExmcllSqKS7C fQ== [facility] Work Phone: Performing Lab a8hbgNTdFSBvoDPpVbBd EVHtLINzx0pfSZZhfXXi ZzEwMzNcZnRuYmpcdWMx BMAaInMpy1vsq428lTQn h0hgVIUxClY4zSPjGWIa nHUfD179TGGxDZsoe2ft o6OwPODtfCWgo5X6VJQO fewxzCt4qAucT12qo1P5 EdnzA7phSHNyRKTkE7Az UD3vWRTnYji7HVT8ICO2 YVAsHAAiI7XfHU0gZTCy vMXzRNa2m3iuhToeOVSl IVP1x7xbCOarbwAkLX8g mo9jmTs7i7pwxcNtMKFg IELkgDOCBVEfA4RnzPdl Wr8veBc8eRsdEwrdQMZ8 Lxt7II7kbe65syv4kSgq JKGdapjjJbW1OGxaGZGo ilptCWc4WJodVKGydFU6 CWVfzOQlR2EiMNrtGV6p mba2FIX2YSmfPUYxOiN4 NDBcaGVhZGVyeTcyMFxm g507HKJ7VeOtTD3gR7Pq z0D0uT8dlSHlIYIxpAAw WcOtJRStol6vxUYzQWrp f6IxXGN6djV0cBSglKGa DHBhPX46Hwlkj7LsJfaq p7FbA66yeCI1PIxvm0wy KN6iJiB7xmVeMQvyc7bs uU5vBaV6OVlhWT2xDE9n WJZcsJ1bomhbDYGfHyVm oudnFXQpcMvojoEyWg5k yVtnBVU2RTlqV8puvU7q SjB4CKfgD8ftzQ7cMBk3 GPlptOF3CXDyuA4tSF0c tmzun7cbSBmwPTinISCq pmJ3deVaKJWxlHNvS7Rc zV4yXRRxKU5nadjxi3mk ONQ2MUuqFWSpQOV1SfEu BZXhy3Jzxfw7OmLfm7Kr gXLhVThpO67qs500ARDo vcBdE9qjgUKfggzveCTn pmtnLUapmbG4ZGAgRXAj YWluXGYxXGZzMjJcbGFu ZzEwMzNcaGljaFxmMVxk QmFxHIQzJZmeO5zeLeKa WnLbZpQJdLAypj6nuHts ZLseuRQqgAXmwZX0mT6r TLTfnaVyic2jUBLxbVEJ nJA4FOqujfSkN3clvyai TXP0DPWeOXR3H8myEHKL dmUsIENsZXZlbGFuZCBP DLH9BYK9VSRdUBFTLXUq IJP4TNX7GJXqTDEdkWKv XHBhclxwYXJkXHBsYWlu RGDzISVxHiNhkPbiaX7s AnEbJgAzMambKZ6zUKVw L1twsXHgNQLfRGUwK8du SdOriT6miTsrQHpgWyXd ZnMyMlxsdHJjaCBMYWJv leB1c9E0YKgeaWAvppst MVxmczIyXGxhbmcxMDMz GSpmM8rzOaPsUBXmxEus AWxgo1ZhGHAtXEAiMsCb LJgnUAS4k1I3YVjifGRa qxCWHnNGFG9kjLZrgdmi OQ9RNctwLJQ7 [facility] Work Phone: [facility] Work Phone: ANES POSTPROC EVALon 024 ANES POSTPROC EVAL HNO ID: [id number] Author: YULIANA AGUILAR APRN.RESEARCH AGRICULTURAL ENGINEER Service: ? Author Type: Nurse [employer] Workers Type: Anesthesia Postprocedure Evaluation Filed: 06/12/2023 10:09 Note Text: POST ANESTHESIA EVALUATION NOTE : 1985 Procedure Summary Date: 06/12/23 Room / Location: Ambulatory Surgery Anesthesia Start: 927 Anesthesia Stop: 1004 Procedures: EGD DIAGNOSTIC COLONOSCOPY DIAGNOSTIC Diagnosis: Gastroesophageal reflux disease, unspecified whether esophagitis present Rectal bleeding (Established esophageal reflux) Scheduled Providers: Anthony Mejia MD; Jennyfer Faria RN; Margo Szymanski Tech; Yuliana Aguilar APRN.RESEARCH AGRICULTURAL ENGINEER Responsible Provider: Yuliana Aguilar APRN.RESEARCH AGRICULTURAL ENGINEER Anesthesia Type: MAC ASA Status: 2 Anesthesia Type: MAC Last Vitals Vitals Value Taken Time BP 117/75 06/12/23 1008 Temp 06/12/23 1009 Pulse 69 06/12/23 1008 Resp 16 06/12/23 1008 SpO2 92 % 06/12/23 1008 Post Anesthesia Patient Status Patient Evaluation: bedside. Anticipated Disposition: phase 2 then home. Neurological Status: aware and responsive. Pulmonary Status: breathing comfortably on room air Airway Control: returned to baseline unsupported. Cardiovascular Status: stable. Pain Management: clinically adequate Postoperative Hydration: acceptable. Intraoperative Events: no significant anesthesia events Post Operative Nausea/Vomiting Status: no significant post operative nausea or vomiting Anesthesia Observations No Documentation SIGNATURE: Yuliana Aguilar APRN.RESEARCH AGRICULTURAL ENGINEER PATIENT NAME: Rufino Wadsworth DATE: June 12, 2023 TIME: 10:09 AM CSN: [id number] Normal [facility] ANES PRE-OPon 06-12-2023 ANES PRE-OP HNO ID: [id number] Author: YULIANA AGUILAR APRN.RESEARCH AGRICULTURAL ENGINEER Service: ? Author Type: Nurse [employer] Workers Type: Anesthesia Preprocedure Evaluation Filed: 06/12/2023 09:26 Note Text: ANESTHESIOLOGY DAY OF SURGERY NOTE : 1985 Procedure Information Date/Time: 06/12/23 0945 Scheduled providers: Anthony Mejia MD; Jennyfer Faria RN; Margo Szymanski Tech; Yuliana Aguilar APRN.RESEARCH AGRICULTURAL ENGINEER Procedures: EGD DIAGNOSTIC COLONOSCOPY DIAGNOSTIC Location: Ambulatory Surgery Estimated body mass index is 26.87 kg/m? as calculated from the following: Height as of this encounter: 190.5 cm (6' 3 ). Weight as of this encounter: 97.5 kg (215 lb). Most recent hematocrit and potassium results: No results found for this basename: HCT,HEMATOCRIT,K,POT ASSIUM Relevant Problems No relevant active problems I - PHYSICAL EVALUATION AIRWAY Patient intubated: No. Tracheostomy tube not present Mallampati: III. TM distance: >3 FB. Neck ROM: full ROM without neurological symptoms. Mouth opening: adequate. Short neck: no. Thick neck: no Hutton present: no Lip Bite Test: II Microretrognathia/Mi cronagthia/Recessed Chin: No DENTAL Dental findings: teeth intact. Additional exam findings: no II - ANESTHESIA PLAN ASA Score: 2 Anesthetic Plan: MAC The patient is not a current smoker. NPO Status: adequate Beta Lee Monitoring Plan Monitoring plan: standard ASA. Post Procedure Analgesic Plan Postoperative analgesic plan: per surgical service. Informed Consent Anesthetic risks, benefits, alternatives, personnel and consent discussed: yes. Patient / Responsible Libertarian agrees to proceed: yes Patient / Surrogate agrees to blood products: blood products not planned DNR status not reviewed with patient and/or family prior to surgery. Significant changes in the patient condition since the History and Physical, not otherwise documented in primary service progress note: no. Potential Anesthesia issues that may suggest increased risk of complications or contraindication to planned procedure: none. Discussed the possibility of lip / dental damage: yes Vitals Value Taken Time BP 148/92 06/12/23 0909 Pulse 61 06/12/23 0909 Resp 16 06/12/23 0909 Temp SpO2 100 % 06/12/23 0909 Outpatient Medications as of 06/12/2023 Medication Sig - omeprazole (PRILOSEC) 20 mg capsule Take 1 capsule by mouth once daily. No current facility-administere d medications on file as of 06/12/2023. I have interviewed and examined the patient. I have reviewed the medical record and/or the pre-anesthesia evaluation, pertinent labs, and test results. This contains updated information obtained within 48 hours of Surgery/Procedure. SIGNATURE: Yuliana Aguilar APRN.RESEARCH AGRICULTURAL ENGINEER PATIENT NAME: Rufino Wadsworth DATE: June 12, 2023 TIME: 9:25 AM CSN: [id number] Normal [facility] Colonoscopyon 06-12-[address] [facility] Gastroenterology Gastrointestinal Endoscopy Patient Name: Rufino Wadsworth Procedure Date: 06/12/2023 9:50 AM Date of : 1985 Admit Type: Outpatient Age: 37 Room: [facility] Gender: Male Note Status: Finalized Attending MD: Anthony Mejia MD, [id number] Procedure: Colonoscopy Indications: Hematochezia, Constipation Providers: Anthony Mejia MD Patient Profile: This is a 37 year old male. Refer to note in patient chart for documentation of history and physical. Last Colonoscopy: 5 years ago. Referring Physician: Brandon Tse CNP (Referring MD) Medicines: Monitored Anesthesia Care Complications: No immediate complications. Requesting Provider: Procedure: After I obtained informed consent, the scope was passed under direct vision. Throughout the procedure, the patient's blood pressure, pulse, and oxygen saturations were monitored continuously. The Colonoscope was introduced through the anus and advanced to the terminal ileum, with identification of the appendiceal orifice and IC valve. I was present and participated during the entire procedure, including non-reyes portions, and during the administration and monitoring of Moderate Sedation. The colonoscopy was performed without difficulty. The patient tolerated the procedure well. The quality of the bowel preparation was excellent. The quality of the bowel preparation was evaluated using the BBPS ([place] Bowel Preparation Scale) with scores of: Right Colon = 3, Transverse Colon = 3 and Left Colon = 3 (entire mucosa seen well with no residual staining, small fragments of stool or opaque liquid). The total BBPS score equals 9. Scope Withdrawal Time: 0 hours 9 minutes 39 seconds Findings: The perianal and digital rectal examinations were normal. Pertinent negatives include normal sphincter tone. The terminal ileum appeared normal. Two sessile polyps were found in the rectum. The polyps were 1 to 2 mm in size. These polyps were removed with a cold biopsy forceps. Resection and retrieval were complete. Internal hemorrhoids were found during retroflexion. The hemorrhoids were Grade II (internal hemorrhoids that prolapse but reduce spontaneously). The exam was otherwise without abnormality. Impression: - The examined portion of the ileum was normal. - Two 1 to 2 mm polyps in the rectum, removed with a cold biopsy forceps. Resected and retrieved. - Internal hemorrhoids. - The examination was otherwise normal. Recommendation: - Discharge patient to home (ambulatory). - Resume previous diet today. - Continue present medications. - Await pathology results. - Repeat colonoscopy with pediatric scope for surveillance based on pathology results. - Recommend continuation of miralax and add linzess 0.290 micrograms daily with follow up with Brandon Tse in 3-4 months. Procedure Code(s): --- Professional --- 44874, Colonoscopy, flexible; with biopsy, single or multiple Diagnosis Code(s): --- Professional --- K64.1, Second degree hemorrhoids D12.8, Benign neoplasm of rectum K92.1, Melena (includes Hematochezia) K59.00, Constipation, unspecified CPT copyright 2020 [employer]. All rights reserved. The codes documented in this report are preliminary and upon supervisor heavy equipment review may be revised to meet current compliance requirements. Scope In: 9:51:16 AM Scope Out: 10:05:06 AM MD Anthony Ibrahim MD 06/12/2023 10:12:23 AM This report has been signed electronically by Anthony Mejia MD Number of Addenda: 0 Note Initiated On: 06/12/2023 9:50 AM Estimated Blood Loss: Estimated blood loss was minimal. Normal [facility] EGD Study observation Narrat mariola 06-12-2023 [facility] Gastroenterology Gastrointestinal Endoscopy Patient Name: Rufino Wadsworth Procedure Date: 06/12/2023 9:34 AM Date of : 1985 Admit Type: Outpatient Age: 37 Room: [place] [address] Gender: Male Note Status: Finalized Attending MD: Anthony Mejia MD, [id number] Procedure: Upper GI endoscopy Indications: Esophageal reflux, Follow-up of esophageal reflux Providers: Anthony Mejia MD Patient Profile: This is a 37 year old male. Refer to note in patient chart for documentation of history and physical. Referring Physician: Brandon Tse CNP (Referring MD) Medicines: Monitored Anesthesia Care Complications: No immediate complications. Requesting Provider: Procedure: Pre-Anesthesia Assessment: - Prior to the procedure, a History and Physical was performed, and patient medications and allergies were reviewed. The patient's tolerance of previous anesthesia was also reviewed. The risks and benefits of the procedure and the sedation options and risks were discussed with the patient. All questions were answered, and informed consent was obtained. Prior Anticoagulants: The patient has taken no anticoagulant or antiplatelet agents. ASA Grade Assessment: I - A normal, healthy patient. After reviewing the risks and benefits, the patient was deemed in satisfactory condition to undergo the procedure. After obtaining informed consent, the endoscope was passed under direct vision. Throughout the procedure, the patient's blood pressure, pulse, and oxygen saturations were monitored continuously. The Endoscope was introduced through the mouth, and advanced to the second part of duodenum. I was present and participated during the entire procedure, including non-reyes portions, and during the administration and monitoring of Moderate Sedation. The upper GI endoscopy was accomplished without difficulty. The patient tolerated the procedure well. Findings: The Z-line was irregular and was found 42 cm from the incisors. The entire examined stomach was normal. The cardia and gastric fundus were normal on retroflexion. The examined duodenum was normal. Biopsies for histology were taken with a cold forceps for evaluation of celiac disease of the bulb and second portion. Impression: - Z-line irregular, 42 cm from the incisors. - Normal stomach. - Normal examined duodenum. Biopsied. Recommendation: - Discharge patient to home (ambulatory). - Resume previous diet today. - Continue present medications. - Await pathology results. - Recommend switching to protonix 40 mg daily once biopsies are back as he has been on omeproazole for the past one year at 40 mg daily. Procedure Code(s): --- Professional --- 37992, Esophagogastroduoden oscopy, flexible, transoral; with biopsy, single or multiple Diagnosis Code(s): --- Professional --- K22.89, Other specified disease of esophagus K21.9, Gastro-esophageal reflux disease without esophagitis CPT copyright 2020 [employer]. All rights reserved. The codes documented in this report are preliminary and upon supervisor heavy equipment review may be revised to meet current compliance requirements. Scope In: 9:39:05 AM Scope Out: 9:44:26 AM MD Anthony Ibrahim MD 06/12/2023 9:49:35 AM This report has been signed electronically by Anthony Mejia MD Number of Addenda: 0 Note Initiated On: 06/12/2023 9:34 AM Estimated Blood Loss: Estimated blood loss was minimal. PROVATION [facility] Radiology Study observation (narrative) [facility] Flexible sigmoidoscopy study on 06-12-2023 [facility] Gastroenterology Gastrointestinal Endoscopy Patient Name: Rufino Wadsworth Procedure Date: 06/12/2023 9:50 AM Date of : 1985 Admit Type: Outpatient Age: 37 Room: [facility] Gender: Male Note Status: Finalized Attending MD: Anthony Mejia MD, [id number] Procedure: Colonoscopy Indications: Hematochezia, Constipation Providers: Anthony Mejia MD Patient Profile: This is a 37 year old male. Refer to note in patient chart for documentation of history and physical. Last Colonoscopy: 5 years ago. Referring Physician: Brandon Tse CNP (Referring MD) Medicines: Monitored Anesthesia Care Complications: No immediate complications. Requesting Provider: Procedure: After I obtained informed consent, the scope was passed under direct vision. Throughout the procedure, the patient's blood pressure, pulse, and oxygen saturations were monitored continuously. The Colonoscope was introduced through the anus and advanced to the terminal ileum, with identification of the appendiceal orifice and IC valve. I was present and participated during the entire procedure, including non-reyes portions, and during the administration and monitoring of Moderate Sedation. The colonoscopy was performed without difficulty. The patient tolerated the procedure well. The quality of the bowel preparation was excellent. The quality of the bowel preparation was evaluated using the BBPS ([place] Bowel Preparation Scale) with scores of: Right Colon = 3, Transverse Colon = 3 and Left Colon = 3 (entire mucosa seen well with no residual staining, small fragments of stool or opaque liquid). The total BBPS score equals 9. Scope Withdrawal Time: 0 hours 9 minutes 39 seconds Findings: The perianal and digital rectal examinations were normal. Pertinent negatives include normal sphincter tone. The terminal ileum appeared normal. Two sessile polyps were found in the rectum. The polyps were 1 to 2 mm in size. These polyps were removed with a cold biopsy forceps. Resection and retrieval were complete. Internal hemorrhoids were found during retroflexion. The hemorrhoids were Grade II (internal hemorrhoids that prolapse but reduce spontaneously). The exam was otherwise without abnormality. Impression: - The examined portion of the ileum was normal. - Two 1 to 2 mm polyps in the rectum, removed with a cold biopsy forceps. Resected and retrieved. - Internal hemorrhoids. - The examination was otherwise normal. Recommendation: - Discharge patient to home (ambulatory). - Resume previous diet today. - Continue present medications. - Await pathology results. - Repeat colonoscopy with pediatric scope for surveillance based on pathology results. - Recommend continuation of miralax and add linzess 0.290 micrograms daily with follow up with Brandon Pack in 3-4 months. Procedure Code(s): --- Professional --- 33399, Colonoscopy, flexible; with biopsy, single or multiple Diagnosis Code(s): --- Professional --- K64.1, Second degree hemorrhoids D12.8, Benign neoplasm of rectum K92.1, Melena (includes Hematochezia) K59.00, Constipation, unspecified CPT copyright 2020 [employer]. All rights reserved. The codes documented in this report are preliminary and upon supervisor heavy equipment review may be revised to meet current compliance requirements. Scope In: 9:51:16 AM Scope Out: 10:05:06 AM MD Anthony Ibrahim MD 06/12/2023 10:12:23 AM This report has been signed electronically by Anthony Mejia MD Number of Addenda: 0 Note Initiated On: 06/12/2023 9:50 AM Estimated Blood Loss: Estimated blood loss was minimal. PROVATION [facility] Radiology Study observation (narrative) [facility] NURSING PROGon 06-12-2023 NURSING PROG HNO ID: [id number] Author: SRUTHI ANDRADE RN Service: ? Author Type: Registered Nurse Type: Nursing Progress Note Filed: 06/12/2023 10:09 Note Text: POST OP LEARNING RESPONSE INSTRUCTION PROVIDED TO: Patient METHOD OF INSTRUCTION: Written instruction - handouts Verbal instruction PATIENT / FAMILY RESPONSE: Information received as demonstrated by interest and questions FOLLOW-UP PLAN: Patient instructed to call with any further issues SUPPLEMENTAL MATERIAL: None REFERRAL (RECOMMENDATION): None Electronically Signed By: Sruthi Andrade RN In Department: AMBULATORY SURGERY Normal [facility] NURSING PROG HNO ID: [id number] Author: ROSY QUIROGA RN Service: Gastroenterology Author Type: Registered Nurse Type: Nursing Progress Note Filed: 06/12/2023 08:56 Note Text: PRE OP LEARNING ASSESSMENT PROCEDURE/SURGERY: GI PROCEDURES: Colonoscopy and EGD READINESS TO LEARN COGNITIVE ABILITY: Alert and oriented MOTIVATION TO LEARN: Interested FAMILY SUPPORT: Unable to assess - Family not present PATIENT LEARNS BEST BY: Individual Instruction Written Instruction - Hand-outs Verbal Instruction FACTORS AFFECTING LEARNING: None PHYSICAL LIMITATIONS AFFECTING LEARNING: None Electronically Signed By: Rosy Quiroga RN In Department: AMBULATORY SURGERY Normal [facility] SURGICAL PATHOLOGYon 024 CASE REPORT Normal [facility] Comment on above: Order Comment: Speci bess Type: TISSUE SPECIMEN Ordering Facility: [facility] Address: [address] [place] [address] Result Comment: Surg ical Pathology Report Case: [id number] Authorizing Provider: Anthony Mejia MD Collected: 06/12/2023 09:40 AM Ordering Location: Ambulatory Surgery Received: 06/12/2023 10:31 PM Pathologist: Tara Wilkinson MD Specimens: A) - DUODENUM BIOPSY B) - RECTAL POLYP, x2 Performed By: #### S #### [facility] CLIA [id number] [address] [place] [address] FINAL DIAGNOSIS Normal [facility] Comment on above: Order Comment: Hilda kellogg Type: TISSUE SPECIMEN Ordering Facility: [facility] Address: [address] [place] [address] Result Comment: A. D uodenum, biopsy: - Duodenal mucosa with no significant diagnostic alteration. - No evidence of celiac disease or duodenitis. B. Rectal polyp x 2, biopsy: - Fragments of hyperplastic polyp. Performed By: #### S #### [facility] CLIA [id number] [address] [place] [address] FINAL PERFORMING LAB Normal [facility] Comment on above: Order Comment: Hilda kellogg Type: TISSUE SPECIMEN Ordering Facility: [facility] Address: [address] [place] [address] Result Comment: Diag nostic interpretation performed at [facility], [address] [place] [address] CLIA# [id number] Observatory Director: Vikram Enriquez M.D. Performed By: #### S #### [facility] CLIA [id number] [address] [place] [address] [place] GROSS DESCRIPTION Normal [facility] Comment on above: Order Comment: Speci men Type: TISSUE SPECIMEN Ordering Facility: [facility] Address: [address] [place] [address] Result Comment: A. D UODENUM BIOPSY Received in formalin on gauze are multiple pieces of castellano, soft tissue aggregating to 1.1 x 0.3 x 0.1 cm. Totally submitted in one cassette. B. RECTAL POLYP Received in formalin on gauze are two pieces of castellano to castellano-brown, soft tissue aggregating to 0.5 x 0.2 x 0.2 cm. Totally submitted in one cassette. DB June 13, 2023 1:04 AM [place] [address] Performed By: #### S #### [facility] CLIA [id number] [address] [place] [address] [place] Upper GI endoscopyon 03-05-[address] [facility] Gastroenterology Gastrointestinal Endoscopy Patient Name: Rufino Wadsworth Procedure Date: 06/12/2023 9:34 AM Date of : 1985 Admit Type: Outpatient Age: 37 Room: [place] [address] Gender: Male Note Status: Finalized Attending MD: Anthony Mejia MD, [id number] Procedure: Upper GI endoscopy Indications: Esophageal reflux, Follow-up of esophageal reflux Providers: Anthony Mejia MD Patient Profile: This is a 37 year old male. Refer to note in patient chart for documentation of history and physical. Referring Physician: Brandon Tse CNP (Referring MD) Medicines: Monitored Anesthesia Care Complications: No immediate complications. Requesting Provider: Procedure: Pre-Anesthesia Assessment: - Prior to the procedure, a History and Physical was performed, and patient medications and allergies were reviewed. The patient's tolerance of previous anesthesia was also reviewed. The risks and benefits of the procedure and the sedation options and risks were discussed with the patient. All questions were answered, and informed consent was obtained. Prior Anticoagulants: The patient has taken no anticoagulant or antiplatelet agents. ASA Grade Assessment: I - A normal, healthy patient. After reviewing the risks and benefits, the patient was deemed in satisfactory condition to undergo the procedure. After obtaining informed consent, the endoscope was passed under direct vision. Throughout the procedure, the patient's blood pressure, pulse, and oxygen saturations were monitored continuously. The Endoscope was introduced through the mouth, and advanced to the second part of duodenum. I was present and participated during the entire procedure, including non-reyes portions, and during the administration and monitoring of Moderate Sedation. The upper GI endoscopy was accomplished without difficulty. The patient tolerated the procedure well. Findings: The Z-line was irregular and was found 42 cm from the incisors. The entire examined stomach was normal. The cardia and gastric fundus were normal on retroflexion. The examined duodenum was normal. Biopsies for histology were taken with a cold forceps for evaluation of celiac disease of the bulb and second portion. Impression: - Z-line irregular, 42 cm from the incisors. - Normal stomach. - Normal examined duodenum. Biopsied. Recommendation: - Discharge patient to home (ambulatory). - Resume previous diet today. - Continue present medications. - Await pathology results. - Recommend switching to protonix 40 mg daily once biopsies are back as he has been on omeproazole for the past one year at 40 mg daily. Procedure Code(s): --- Professional --- 87928, Esophagogastroduoden oscopy, flexible, transoral; with biopsy, single or multiple Diagnosis Code(s): --- Professional --- K22.89, Other specified disease of esophagus K21.9, Gastro-esophageal reflux disease without esophagitis CPT copyright 2020 [employer]. All rights reserved. The codes documented in this report are preliminary and upon supervisor heavy equipment review may be revised to meet current compliance requirements. Scope In: 9:39:05 AM Scope Out: 9:44:26 AM MD Anthony Ibrahim MD 06/12/2023 9:49:35 AM This report has been signed electronically by Anthony Mejia MD Number of Addenda: 0 Note Initiated On: 06/12/2023 9:34 AM Estimated Blood Loss: Estimated blood loss was minimal. Normal [facility] 06-01-2023 PAWEL Telephone ([facility]) ERMELINDARUFINO BALDERRAMA ([id number]) 1985 M Date Time Provider Department 06/01/23 BRANDON TSE [facility] During your visit today, we recorded the following information about you: Brandon Tse APRN.CNP 06/01/2023 3:00 PM Signed Called patient to discuss MyChart message. Left message to call back. KEARA Schwartz Nicole, APRN.CNP 06/01/2023 2:56 PM Signed Bowel Preparation Instructions for: Miralax-Gatorade Preparations IF YOU DO NOT FOLLOW THESE DIRECTIONS, YOUR COLONOSCOPY WILL BE CANCELLED. Reyes Instructions: Your bowel must be empty so that your doctor can clearly view your colon. Follow all of the instructions in this handout EXACTLY as they are written. Do NOT eat any solid food the ENTIRE day before your colonoscopy. Buy your bowel preparation at least 5 days before your colonoscopy. Four (4) Dulcolax laxative tablets containing 5mg of bisacodyl each (NOT Dulcolax stool softener) One (1) 8.3oz. bottle Miralax (238 grams) or generic equivalent 2 x 32oz. Bottles of Gatorade (NOT RED) Diabetic Patients: Use G2 (Gatorade 2) TRANSPORTATION on the Day of Your Exam A responsible adult MUST be present with you at Check In prior to your colonoscopy and REMAIN in the endoscopy area until you are discharged. You are NOT ALLOWED to drive, take a taxi or bus, or leave the Endoscopy Center ALONE. If you do not have a responsible commercial front load driver (family member or friend) with you to take you home, your exam cannot be done with sedation and will be cancelled. Please bring a list of all of your current medications, including any Mpus-eoo-Eaxrlyy medications with you. Medications If you take insulin, diabetic medications or blood thinners such as Coumadin (warfarin), Plavix (clopidogrel), Ticlid (ticlopidine hydrochloride), Agrylin (anagrelide), Xarelto (Rivaroxaban), Pradaxa (Dabigatran), Eliquis (Apixaban), and Effient (Prasugrel). You MUST call the doctors who orders those medicines for instructions on altering the dosage before your colonoscopy. All other medications should be taken the day of the exam with a sip of water including ASPIRIN. Five (5) Days Before Your Colonoscopy Do NOT take medicines that stop diarrhea - such as Imodium, Kaopectate, or Pepto Bismol. Do NOT take fiber supplements - such as Metamucil, Citrucel, or Perdiem. Do NOT take products that contain iron - such as multi-vitamins (the label lists what is in the products). Three (3) Days Before Your Colonoscopy Do NOT eat high-fiber foods - such as popcorn, beans, seeds (flax, sunflower, quinoa), multigrain bread, nuts, salad/vegetables, or fresh and dried fruit. 1 Bowel Preparation Instructions for: Miralax-Gatorade Preparations One (1) Day Before Your Colonoscopy Only drink clear liquids the ENTIRE DAY before your colonoscopy. Do NOT eat any solid foods. Drink at least 8 ounces of clear liquids every hour after waking up. The clear liquids you can drink include: Clear Liquid (NO RED LIQUIDS) DO NOT DRINK Gatorade, Pedialyte or Powerade Clear broth or bouillon Coffee or tea (no milk or non-dairy creamer) Carbonated and non-carbonated soft drinks James-Aid or other fruit flavored drinks Strained fruit juices (no pulp) Jell-O, popsicles, hard candy Water Alcohol Milk or non-dairy creamers Noodles or vegetables in soup Juice with pulp Liquid you cannot see through Do not use tobacco/vaping products Mix 1/2 of Miralax bottle (119 grams) in each 32 ounces of Gatorade bottle until dissolved. Keep cool in the refrigerator. DO NOT ADD ICE. The bowel preparation solution will be consumed in two parts. Part 1 5:00 PM - Evening before your colonoscopy Take 4 Dulcolax tablets. 6 PM - Evening before your colonoscopy Drink 32 oz. of the mixed solution. Drink an 8 oz. glass of bowel preparation every 15 minutes for a total of 4 glasses. Fifteen (15) minutes later, drink an 8 oz. glass of of clear liquids every 15 minutes for a total of 2 glasses. You may continue to drink clear liquids till midnight. Part 2 On the day of your colonoscopy you may drink clear liquids up to (three) 3 hours prior to procedure. 4 1/2 hours before your colonoscopy Take another 32 oz. bottle of mixed solution. Drink an 8 oz. glass of bowel prep every 15 minutes for a total of 4 glasses. Fifteen (15) minutes later, drink an 8 oz. glass of clear liquids every 15 minutes for a total of 2 glasses. You may continue to drink clear liquids up to (three) 3 hours before your exam. 2 03/2019 Allergies As of Date: 06/01/2023 (Not on File) Date Reviewed: Never Reviewed Primary Visit Diagnosis:Diarrhea, unspecified type [R19.7] Other Visit Diagnosis:Rectal bleeding [K62.5] Prescriptions as of 06/01/2023 - omeprazole (PRILOSEC) 20 mg capsule Take 1 capsule by mouth once daily. Problem List As Of Date: 06/01/2023 (more content not included)... Normal [facility] HISTORY PHYSICALon HISTORY PHYSICAL HNO ID: [id number] Author: BRANDON TSE APRN.CNP Service: ? Author Type: Nurse Practitioner Type: H&P Filed: 05/29/2023 15:03 Note Text: DISTANCE HEALTH VISIT This Team Access Model visit is a virtual encounter. It required patient-provider interaction for the medical decision making as documented below. REASON FOR VISIT: follow up, GERD. HPI: Rufino Wadsworth is a 37 year old male who presents for GERD. He admits to constant breakthrough reflux on 20 -40 mg of Omeprazole daily.He has been taking Tums and pepto bismol for breakthrough symptoms. He stopped all NSAID use. He also endorses issues with constipation. He states he can go 2-3 days without a BM. He states he does not feel completely evacuated. He recently started MiraLAX 1 capful daily. He denies unintentional weight loss, melena and hematochezia. Past Clinical Work-Up: LAST BRANDON TSE APRN.AREA DIRECTOR 03/14/2023 ASSESSMENT/PLAN: Mr. Wadsworth is a 37 year old male with a negative medical history presents for GERD. He endorses a longstanding history of GERD for the past few years. He then had constant heartburn for 2 months straight last year. He had improvement with Omeprazole 40 mg daily. He is currently on Omeprazole 20 mg daily. He denies breakthrough symptoms. He presents to establish today. I recommend continuing Omeprazole 20 mg daily for the 1 month and then decreasing to every other day in an effort to wean off. Lifestyle modifications were discussed including losing weight, limiting caffeine, no meals three hours before sleep, and head of bed elevation. The patient is agreeable with the above plan and encouraged to reach out with questions and concerns. 1. Gastroesophageal reflux disease, unspecified whether esophagitis present - ICD9: 530.81, ICD10: K21.9 - Discussed lifestyle modifications including limiting caffeine, no meals three hours before sleep, and head of bed elevation - OMEPRAZOLE 20 MG CAPSULE,DELAYED RELEASE NO RECENT PROCEDURES ALLERGIES Not on File No past medical history on file. No past surgical history on file. No family history on file. Current Outpatient Medications Medication Sig omeprazole (PRILOSEC) 20 mg capsule Take 1 capsule by mouth once daily. No current facility-administere d medications for this visit. I have confirmed and edited, if necessary, the PFSH obtained by others. REVIEW OF SYSTEMS: GENERAL: No weight loss, malaise or fevers RESPIRATORY: Negative for cough, hemoptysis, wheezing, dyspnea or shortness of breath CARDIOVASCULAR: Negative for chest pain, leg swelling, or palpitations GI: See HPI PHYSICAL EXAM: General - Normal, healthy, cooperative, in no acute distress Able to interact verbally by video conference Psych - ORIENTATION: normal to time place, person and situation Mood/Affect: AFFECT AND MOOD: Normal Head/Neuro - Normal size and shape Facial appearance normal Pulmonary - respiratory effort normal Cardiovascular - patient describes extremities normal, warm, no cyanosis,no clubbing, and no edema Abdominal - Not performed Skin - abnormal lesions not visualized Motor - patient seen sitting with Normal appearing strength and coordination ASSESSMENT/PLAN: Mr. Wadsworth is a 37 year old male with a history of GERD presents for GERD and constipation. He admits to constant breakthrough reflux on 20 -40 mg of Omeprazole daily.He has been taking Tums and pepto bismol for breakthrough symptoms. I recommend an EGD for further evaluation of his breakthrough reflux. He also endorses issues with constipation. He states he can go 2-3 days without a BM. He states he does not feel completely evacuated. He recently started MiraLAX 1 capful daily.I recommend continuing MiraLAX 1 capful daily and increasing his water intake. Procedure/risks were discussed with the patient in great detail including the risk of sedation and bleeding. Patient is agreeable with proceeding and instructed to call with any questions or concerns. 1. Gastroesophageal reflux disease, unspecified whether esophagitis present - ICD9: 530.81, ICD10: K21.9 (primary diagnosis) - Discussed lifestyle modifications including limiting caffeine, no meals three hours before sleep, and head of bed elevation - EGD DIAGNOSTIC 2. Constipation, unspecified constipation type - ICD9: 564.00, ICD10: K59.00 - MiraLAX 1 capful daily I spent more than 30 minutes [id number] with the patient and over half the time was devoted to counseling and/or coordination of care. This note was dictated using [employer] speech recognition software and may contain some errors that were a result of the program not accurately transcribing what was dictated. I have communicated my name and active licensure. The patient's identity and physical location were verified at the time of this visit. Either the patient or their legal employment program representative has been informed of the risks and benefits of -- and alternat (more content not included)... Normal [facility] HISTORY PHYSICALon 3 HISTORY PHYSICAL HNO ID: [id number] Author: Brandon Tse APRN.AREA DIRECTOR Service: ? Author Type: Nurse Practitioner Type: HANDP Filed: 03/14/2023 3:09 PM Note Text: DISTANCE HEALTH VISIT This Team Access Model visit is a virtual encounter. It required patient-provider interaction for the medical decision making as documented below. REASON FOR VISIT: heartburn HPI: Rufino Wadsworth is a 37 year old male who presents for heartburn. He endorses a longstanding history of GERD for the past few years. He then had constant heartburn for 2 months straight last year. He had improvement with Omeprazole 40 mg daily. He is currently on Omeprazole 20 mg daily. He denies breakthrough symptoms.No NSAID use, smoking or alcohol intake. He presents to establish today. Patient denies dysphagia, early satiety, nausea, vomiting, abdominal pain, changes in appetite, change in bowel habits, unintentional weight loss, melena, hematochezia or hematemesis. No prior history of EGD or colonoscopy. No known FHx of GI tract malignancy or disease. No prior abdominopelvic surgeries. Past Clinical Work-Up: ALLERGIES Not on File No past medical history on file. No past surgical history on file. No family history on file. No current outpatient medications on file. No current facility-administere d medications for this visit. I have confirmed and edited, if necessary, the PFSH obtained by others. REVIEW OF SYSTEMS: GENERAL: No weight loss, malaise or fevers RESPIRATORY: Negative for cough, hemoptysis, wheezing, dyspnea or shortness of breath CARDIOVASCULAR: Negative for chest pain, leg swelling, or palpitations GI: See HPI PHYSICAL EXAM: General - Normal, healthy, cooperative, in no acute distress Able to interact verbally by video conference Psych - ORIENTATION: normal to time place, person and situation Mood/Affect: AFFECT AND MOOD: Normal Head/Neuro - Normal size and shape Facial appearance normal Pulmonary - respiratory effort normal Cardiovascular - patient describes extremities normal, warm, no cyanosis,no clubbing, and no edema Abdominal - Not performed Skin - abnormal lesions not visualized Motor - patient seen sitting with Normal appearing strength and coordination ASSESSMENT/PLAN: Mr. Wadsworth is a 37 year old male with a negative medical history presents for GERD. He endorses a longstanding history of GERD for the past few years. He then had constant heartburn for 2 months straight last year. He had improvement with Omeprazole 40 mg daily. He is currently on Omeprazole 20 mg daily. He denies breakthrough symptoms. He presents to establish today. I recommend continuing Omeprazole 20 mg daily for the 1 month and then decreasing to every other day in an effort to wean off. Lifestyle modifications were discussed including losing weight, limiting caffeine, no meals three hours before sleep, and head of bed elevation. The patient is agreeable with the above plan and encouraged to reach out with questions and concerns. 1. Gastroesophageal reflux disease, unspecified whether esophagitis present - ICD9: 530.81, ICD10: K21.9 - Discussed lifestyle modifications including limiting caffeine, no meals three hours before sleep, and head of bed elevation - OMEPRAZOLE 20 MG CAPSULE,DELAYED RELEASE I spent more than 25 minutes [id number] with the patient and over half the time was devoted to counseling and/or coordination of care. This note was dictated using [employer] speech recognition software and may contain some errors that were a result of the program not accurately transcribing what was dictated. I have communicated my name and active licensure. The patient's identity and physical location were verified at the time of this visit. Either the patient or their legal employment program representative has been informed of the risks and benefits of -- and alternatives to -- treatment through a remote evaluation and consents to proceed with the evaluation remotely. Brandon Tse APRN.AREA DIRECTOR [facility] XR foot RT min 3V*on 023 XR foot RT min 3V* [facility] [place] [address] XRay Report Signed Patient: Rufino Wadsworth MR#: [id number] : 1985 Acct:[id number] Age/Sex: 37 / M ADM Date: 11/05/22 Loc: ER Room: Type: PRE ER Attending Dr: Copies to: TRU Montiel Ordering Provider: TRU Montiel Date of Service: 11/05/22 XR/XR foot RT min 3V*: Extremity Injury, Lower RIGHT FOOT - 3 views CLINICAL HISTORY: Smashed right foot. Syncope. COMPARISON: None FINDINGS: Soft tissue swelling is noted. Comminuted fracture involving the middle phalanx of the second digit. No additional fractures are seen. XR/XR foot RT min 3V* IMPRESSION: COMMINUTED FRACTURE MIDDLE PHALANX SECOND DIGIT. THERE IS ASSOCIATED SOFT TISSUE SWELLING. Impression dictated by: Chele De Paz Jr., DorindaOSherly11/05/2022 3:52 PM Dictation Location: [facility] Transcribed By: [facility] 11/05/22 155 Dictated By: Chele De Paz Jr, DO 11/05/22 155 Signed By: 11/05/22 155 [facility] SARS-CoV-2 (COVID-19) RNA NA A+probe Ql (Resp)on 09-19-2021 SARS-CoV-2 (COVID-19) RNA SHU+probe Ql (Unsp spec) Positive [employer] Other Vital Signs Date Time Vital Sign Value Performing Clinician Facility 06-12-2023 10:31-0500 Diastolic blood pressure 65 mm[Hg] Anthony Mejia MD Work Phone: [facility] 06-12-2023 10:31-0500 Heart rate 70 /min Anthony Mejia MD Work Phone: [facility] 06-12-2023 10:31-0500 Respiratory rate 28 /min Anthony Mejia MD Work Phone: [facility] 06-12-2023 10:31-0500 SaO2% (BldA) [Mass fraction] 95 % Anthony Mejia MD Work Phone: [facility] 06-12-2023 10:31-0500 Systolic blood pressure 121 mm[Hg] Anthony Mejia MD Work Phone: [facility] 06-12-2023 09:09-0500 Body height 190.5 cm Anthony Mejia MD Work Phone: [facility] 06-12-2023 09:09-0500 Body mass index (BMI) [Ratio] 26.87 kg/m2 Anthony Mejia MD Work Phone: [facility] 06-12-2023 09:09-0500 Body weight 97.52 kg Anthony Mejia MD Work Phone: [facility] 11-05-2022 15:07-0400 Body height 190.5 cm MD Jacqueline Owens Work Phone: [facility] 11-05-2022 15:07-0400 Body temperature 98 [degF] MD Jacqueline Owens Work Phone: [facility] 11-05-2022 15:07-0400 Body weight 101.55 kg MD Jacqueline Owens Work Phone: [facility] 11-05-2022 15:07-0400 Diastolic blood pressure 80 mm[Hg] MD Jacqueline Owens Work Phone: [facility] 11-05-2022 15:07-0400 Heart rate 78 /min MD Jacqueline Owens Work Phone: [facility] 11-05-2022 15:07-0400 Respiratory rate 18 /min MD Jacqueline Owens Work Phone: [facility] 11-05-2022 15:07-0400 SaO2% (BldA) [Mass fraction] 98 % MD Jacqueline Owens Work Phone: [facility] 11-05-2022 15:07-0400 Systolic blood pressure 138 mm[Hg] MD Jacqueline Owens Work Phone: [facility] 09-19-2021 11:35-0400 Body height 187.96 cm Terese Duff Other [employer] Other 09-19-2021 11:35-0400 Body mass index (BMI) [Ratio] 27.6 kg/m2 Terese Duff Other [employer] Other 09-19-2021 11:35-0400 Body temperature 98.4 [degF] Terese Duff Other [employer] Other 09-19-2021 11:35-0400 Body weight 97.52 kg Terese Duff Other [employer] Other 09-19-2021 11:35-0400 Respiratory rate 18 /min Terese Duff Other [employer] Other 09-19-2021 11:35-0400 SaO2% (BldA) [Mass fraction] 99 % Terese Duff Other [employer] Other Encounters Encounter Date Encounter Type Care Provider Facility Start: 02-22-2024 End: 02-22-2024 ambulatory CATIE CARRILLO Not Available Start: 01-31-2024 End: 01-31-2024 Office outpatient visit 10 minutes Catie Carrillo NP Work Phone: [facility] Comment on above: Internal derangement of left knee (Primary Dx); Left knee pain, unspecified chronicity Start: 01-31-2024 End: 01-31-2024 ambulatory CATIE CARRILLO Not Available Start: 01-31-2024 End: 01-31-2024 Bamboo flowsheet Catie Carrillo SYSTEMS MANAGER Work Phone: [facility] Start: 01-31-2024 End: 01-31-2024 Bamboo flowsheet Catie Carrillo SYSTEMS MANAGER Work Phone: [facility] Start: 12-20-2023 End: 12-20-2023 Bamboo flowsheet Catie Carrillo SYSTEMS MANAGER Work Phone: [facility] Start: 12-20-2023 End: 12-20-2023 Bamboo flowsheet Catie Carrillo SYSTEMS MANAGER Work Phone: [facility] Start: 12-20-2023 End: 12-20-2023 Office outpatient visit 25 minutes Catie Carrillo SYSTEMS MANAGER Work Phone: [facility] Comment on above: Internal derangement of left knee (Primary Dx); Left knee pain, unspecified chronicity Start: 12-20-2023 End: 12-20-2023 ambulatory CATIE CARRILLO Not Available Start: 08-21-2023 Get Medical Advice Brandon kiser CORK MOLDER.AREA DIRECTOR Work Phone: Gastroenterology Comment on above: Pantoprazole - Refil l Start: 06-20-2023 Refill Brandon Tse CORK MOLDER.AREA DIRECTOR Work Phone: Gastroenterology Comment on above: Refill Request Start: 06-12-2023 End: 06-12-2023 ambulatory BRANDON TSE Facility:[facility] Start: 06-12-2023 End: 06-12-2023 Subsequent hospital visit by physician Anthony Mejia MD Work Phone: Ambulatory Surgery Comment on above: Gastroesophageal ref lux disease, unspecified whether esophagitis present [K21.9] Start: 06-06-2023 ambulatory [facility] Provider Cammy rhoades Comment on above: TWO DAY COLONOSCOPY PREP INSTRUCTIONS Start: 06-06-2023 E-mail encounter fro m caregiver [facility] Provider [facility] Start: 06-05-2023 ambulatory Nurse Meghan [facility] Work Phone: Gastroenterology Comment on above: EGD instructions Start: 06-05-2023 E-mail encounter fro m caregiver Nurse Meghan [facility] Work Phone: [facility] Start: 06-01-2023 Telephone encounter Brandon Pac k CORK MOLDER.AREA DIRECTOR Work Phone: Gastroenterology Start: 05-31-2023 ambulatory Brandon Pack CORK MOLDER.AREA DIRECTOR Work Phone: Gastroenterology Comment on above: Still Having Issues Start: 05-29-2023 End: 05-29-2023 ambulatory BRANDON PACK Facility:[facility] Start: 05-29-2023 End: 05-29-2023 ambulatory Brandon Pack CORK MOLDER.AREA DIRECTOR Work Phone: Gastroenterology Comment on above: Gastroesophageal ref lux disease, unspecified whether esophagitis present (Primary Dx); Constipation, unspecified constipation type Start: 05-29-2023 End: 05-29-2023 Telemedicine consultation with patient Brandon Pack CORK MOLDER.AREA DIRECTOR Work Phone: [facility] Start: 03-31-2023 End: 03-31-2023 ambulatory AMADA BLEVINS Not Available Start: 03-14-2023 End: 03-14-2023 ambulatory BRANDON PACK Facility:[facility] Start: 03-14-2023 End: 03-14-2023 ambulatory Brandon Pack CORK MOLDER.AREA DIRECTOR Work Phone: Gastroenterology Comment on above: Gastroesophageal ref lux disease, unspecified whether esophagitis present (Primary Dx) Start: 03-14-2023 End: 03-14-2023 Telemedicine consultation with patient Brandon Pack CORK MOLDER.AREA DIRECTOR Work Phone: [facility] Start: 11-05-2022 End: 11-05-2022 Emergency department patient visit Cheyanne Montaño Facility:[facility] Start: 11-05-2022 End: 11-05-2022 Emergency department patient visit MD Jacqueline Owens Work Phone: [facility] Work Phone: Start: 05-24-2022 End: 05-25-[address] MARYAM JORDAN Facility:[facility] Start: 04-27-2022 End: 08-06-[address] MARYAM JORDAN Facility:[facility] Start: 09-19-2021 End: 09-19-2021 ambulatory Terese Duff Other [employer] Other Start: 09-19-2021 Office outpatient vi sit 15 minutes Terese Duff [facility] Procedures Date Procedure Procedure Detail Performing Clinician Start: 12-20-2023 Radiologic examination knee 1/2 views Catie Carrillo SYSTEMS MANAGER Work Phone: Start: 06-12-2023 Colonoscopy flx dx w/collj spec when pfrmd Brandon Pack CORK MOLDER.AREA DIRECTOR Work Phone: Start: 06-12-2023 Level iv surg pathology gross&microscopic exam Anthony Mejia MD Work Phone: Start: 06-12-2023 Esophagogastroduodenoscopy transoral diagnostic Brandon Pack CORK MOLDER.AREA DIRECTOR Work Phone: Start: 11-05-2022 X-ray of right foot MD Jacqueline Owens Work Phone: Plan of Treatment Date Care Activity Detail Author Start: 11-05-2032 Urine microalbumin profile [facility] Start: 01-31-2024 End: 01-31-2024 Patient encounter procedure [facility] Comment on above: Arrived Start: 01-31-2024 End: 01-30-2025 MR Knee - left WO contrast MR knee left wo IV contrast Imaging Routine Internal derangement of left knee Expected: 01/31/2024 (Approximate), Expires: 01/30/2025 [facility] Work Phone: Comment on above: Expected: 01/31/2024 (Approximate), Expires: 01/30/2025 Start: 12-20-2023 End: 12-20-2023 Patient encounter procedure 12/20/2023 11:00 AM EDT Office Visit [facility] [address] [place] [address] Catie Carrillo, FERNANDO [address] [place] [address] Left knee pain, unspecified chronicity [facility] Comment on above: Left knee pain, unsp ecified chronicity Start: 12-09-2023 Covid-19 Vaccine ( season) Covid-19 Vaccine () [facility] Start: 12-09-2023 Influenza vaccination [facility] Start: 04-09-2023 Behavioral Health Screening Behavioral Health Screening [facility] Start: 04-09-2023 Depression Assessment Depression Ass [facility] Start: 12-08-2022 Covid-19 Vaccine ( season) Covid-19 Vaccine () [facility] Start: 12-08-2022 Influenza vaccination Influenza Vacc ine (#1) [facility] Start: 07-16-2022 Lipid 1996 panel - Serum or Plasma Lipid Screening [facility] Start: 07-16-2022 Lipid panel Lipid Screening [facility] Start: 04-09-2022 Depression Assessment Depression Ass essment [facility] Start: 07-16-2005 Anxiety Screening Anxiety Screening [facility] Start: 07-16-2005 Depression Screening Depression Scre ening [facility] Start: 07-16-2005 Hepatitis C Screening Hepatitis C [facility] Start: 07-16-2005 Hepatitis C screening Hepatitis C [facility] Start: 07-16-2005 HIV Screening HIV Screening [facility] Start: 07-16-2005 HIV screening HIV Screening [facility] Start: 1985 Hepatitis B Vaccine (1 of 3 - 3-dose series) Hepatitis B Vaccine (1 of 3 - 3-dose series) [facility] Start: 1985 Medicare Annual Wellness (AWV) Medicare Annual Wellness (AWV) [facility] End: 05-29-2024 EGD DIAGNOSTIC EGD DIAGNOSTIC Endoscopy Routine Gastroesophageal reflux disease, unspecified whether esophagitis present 1 Occurrences starting 05/29/2023 until 05/29/2024 [facility] Work Phone: Comment on above: 1 Occurrences starti ng 05/29/2023 until 05/29/2024 End: 06-01-2024 Flexible sigmoidoscopy study COLONOSCOPY DIAGNOSTIC Endoscopy Routine Rectal bleeding 1 Occurrences starting 06/01/2023 until 06/01/2024 [facility] Work Phone: Comment on above: 1 Occurrences starti ng 06/01/2023 until 06/01/2024 Patient Education Laceration Rep air With Stitches ED Wound Care ED Toe Fracture ED [facility] Work Phone: Patient referral [facility] Work Phone[facility] Immunizations Immunization Date Immunization Notes Care Provider Fa [facility] 11-05-2022 tetanus toxoid, redu teja diphtheria toxoid, and acellular pertussis vaccine, adsorbed MD Jacqueline Owens Work Phone: [facility] 02-17-2022 influenza, injectabl e, quadrivalent, preservative free Catie Carrillo NP Work Phone: [facility] 02-17-2022 influenza virus vaccine, unspecified formulation Brandon Tse APRN.CNP Work Phone: [facility] 01-29-2020 influenza, injectabl e, quadrivalent, preservative free Catie Carrillo NP Work Phone: [facility] Payers Date Payer Category Payer Private Health Insurance [id number] 2011 Managed Care HMO (unspecified) [id number] 2011 Medicaid [employer] MEDICARE A DVANTAGE [id number] 1987 Unknown [id number] 1987 Unknown [id number] 1987 Unknown [id number] 1987 Unknown [id number] 1987 Unknown [id number] 1987 Unknown [id number] 1987 Unknown [id number] 1959 Private Health Insurance [id number] 1959 Self-pay Unknown [id number] Unknown [facility] [id number] Social History Date Type Detail Facility Unknown if ever smoked [employer] Other Start: 03-14-2023 End: 12-20-[address] [facility] [employer] Other Start: 11-05-2022 End: 11-16-2022 Tobacco smoking status NHIS Never smoked tobacco (finding) [facility] Start: 1985 Sex Assigned At Male F [facility] Tobacco smoking status FLIS Tobacco smoking consumption unknown [facility] Start: 03-14-2023 End: 12-20-2023 History of Social function [facility] National Score (1-100), lower number is lower risk 59 [facility] Start: 1985 Sex Assigned At Not on file [facility] Start: 06-12-2023 Tobacco use and exposure User of smokeless tobacco [facility] Start: 06-12-2023 End: 12-20-2023 Alcohol intake Current drinker of alcohol (finding) [facility] Start: 06-12-2023 Tobacco Comment Has never smoked [facility] Start: 06-12-2023 Alcohol Comment 3-4 drinks twice a w [facility] Start: 11-16-2022 Tobacco use and exposure Smokeless tobacco non-user [facility] Start: 04-09-2023 Alcohol Comment caffeine intak e : 1-2 cups per day ; coffee [facility] Clinical Notes 09-19-2021 to 01-31-2024 Catie Carrillo NP - 01/31/2024 2:45 PM Mayra Carrillo NP - 12/20/2023 11:00 AM EDTTelephone Encounter - Lavern Bonds, CHELLY - 08/21/2023 11:23 AM Sruthi Rodriguez RN - 06/12/2023 10:09 AM EST Note Date & Type Note Facility 01-31-2024 History of Presen t illness Narrative Images from the original note were not included. Chief Complaint Patient presents with Left Knee - Follow-up HISTORY OF PRESENT ILLNESS: Rufino Wadsworth is an 38 y.o. @ male. 6 weeks s/p depo inj, physician directed HEP LT knee pain x ~06/2023, NKI. Used to play football, wrestle and was in the [employer]. Not much relief from injection. Pain lateral knee. Continues to get sharp pains with working or stairs. Feels like it will give out. Taking TYL or IBU prn. Doing HEP, not much relief. Has been trying to rest and stay off of it more. Denies N/T. Minimal swelling. Occas popping/grinding. Does not wake at HS. Prior tx: XR [facility] 12/20/23, TYL, IBU, ice, knee brace, depo injection 12/20/23, physician directed HEP ALLERGIES: No Known Allergies HOME MEDICATIONS: Current Outpatient Medications Medication Instructions albuterol HFA 90 mcg/act inhaler 2 puffs, Inhalation, Every 4 hours PRN azithromycin (Zithromax) 250 MG tablet Take two tab on day one, one tab per day on day two through through five omeprazole (PRILOSEC) 40 mg, Oral, Daily before breakfast PHYSICAL EXAM: Left Knee Exam Tenderness The patient is experiencing tenderness in the lateral joint line. Range of Motion Extension: 0 Flexion: 120 Tests Gio: Lateral - positive Varus: negative Valgus: negative Other Erythema: absent Scars: absent Sensation: normal Pulse: present Swelling: mild Vitals: There is no height or weight on file to calculate BMI. IMAGING: ASSESSMENT: ICD-10-CM 1. Internal derangement of left knee M23.92 MR knee left wo IV contrast 2. Left knee pain, unspecified chronicity M25.562 Procedures PLAN: Patient states he had little to no relief with injection, NSAIDs or physician directed HEP. I recommend MRI of the left knee to evaluate for lateral meniscus tear. He will follow up post MRI. Questions answered in laymen terms at the bedside. The diagnosis, home exercise plan and any ongoing restrictions/ recommendations reviewed. If unable to be reached in office, I recommend evaluation at nearest Emergency Room if any symptoms worsened or new symptoms develop for requiring urgent evaluation. Catie Carrillo CORK MOLDER-AREA DIRECTOR documented in this encounter [facility] 12-20-2023 History of Presen t illness Narrative Images from the original note were not included. Chief Complaint Patient presents with Left Knee - Pain HISTORY OF PRESENT ILLNESS: Rufino Wadsworth is an 38 y.o. @ male. Est pt, new problem. LT knee pain x ~ 6 months, NKI. Used to play football, wrestle and was in the [employer]. Pain lateral knee, aches. Sharp pains with stairs diffuse in knee, feels like it will give out. Denies radiation. Taking TYL or IBU prn. Tried ice prn. Tried a knee brace, not much relief. Has been resting it and has had no relief. Denies N/T. Denies swelling recently, has had hx of swelling in the past. Admits popping/grinding. Does not wake at HS. Pt is active. Prior tx: XR [facility] 12/20/23, TYL, IBU, ice, knee brace ALLERGIES: No Known Allergies HOME MEDICATIONS: Current Outpatient Medications Medication Instructions albuterol HFA 90 mcg/act inhaler 2 puffs, Inhalation, Every 4 hours PRN azithromycin (Zithromax) 250 MG tablet Take two tab on day one, one tab per day on day two through through five omeprazole (PRILOSEC) 40 mg, Oral, Daily before breakfast PHYSICAL EXAM: Left Knee Exam Tenderness The patient is experiencing tenderness in the lateral joint line. Range of Motion Extension: 0 Flexion: 120 Tests Gio: Lateral - positive Varus: negative Valgus: negative Other Erythema: absent Scars: absent Sensation: normal Pulse: present Swelling: mild Vitals: There is no height or weight on file to calculate BMI. IMAGING: XR knee 1 or 2 views left Imaging Result: December 19, 2013 x-rays AP weight-bearing bilateral knees and lateral of the left knee demonstrate open joint spaces without collapse. No areas of svyg-dj-cium. No sclerosis. No fractures detected. Neutral alignment. Impression: No acute findings on x-rays of the left knee Trace Levy D.O. ASSESSMENT: ICD-10-CM 1. Internal derangement of left knee M23.92 2. Left knee pain, unspecified chronicity M25.562 XR knee 1 or 2 views left Procedures PLAN: I reviewed xray findings with the patient and discussed treatment options, answered questions. I discussed with the patient the option of an injection. I advised the patient of risks associated with an injection including a reaction to medication, infection, failure to improve and possible worsening. The patient demonstrated understanding. Patient requesting injection. Skin Cleansed with alcohol swab. Utilizing aseptic technique patient given 40mg Depomedrol was injected. Patient tolerated this well. Neurovasc intact s/p injection. Post injection care instructions discussed. I educated patient on physican directed HEP and patient demonstrated understanding. Follow up in 6 weeks. If still painful consider MRI to evaluate for lateral meniscus tear. Questions answered in laymen terms at the bedside. The diagnosis, home exercise plan and any ongoing restrictions/ recommendations reviewed. If unable to be reached in office, I recommend evaluation at nearest Emergency Room if any symptoms worsened or new symptoms develop for requiring urgent evaluation. Catie Carrillo CORK MOLDER-AREA DIRECTOR documented in this encounter [facility] 08-21-2023 Telephone encount er Note EGD/Colonoscopy 06/12/23 Distance Health Visit 05/29/23 [facility] 08-21-2023 Miscellaneous Notes Formattin g of this note might be different from the original. EGD/Colonoscopy 06/12/23 Distance Health Visit 05/29/23 documented in this encounter [facility] 06-20-2023 Miscellaneous Notes Formattin g of this note might be different from the original. Last distance health visit 05/29/23. EGD/Colonoscopy 06/12/23. documented in this encounter [facility] 06-12-2023 Nurse Note POST OP LEARNING RESPONSE INSTRUCTION PROVIDED TO: Patient METHOD OF INSTRUCTION: Written instruction - handouts Verbal instruction PATIENT / FAMILY RESPONSE: Information received as demonstrated by interest and questions FOLLOW-UP PLAN: Patient instructed to call with any further issues SUPPLEMENTAL MATERIAL: None REFERRAL (RECOMMENDATION): None Electronically Signed By: Sruthi Andrade RN In Department: AMBULATORY SURGERY [facility] 06-12-2023 Nurse Note POST OP LEARNING RESPONSE INSTRUCTION PROVIDED TO: Patient METHOD OF INSTRUCTION: Written instruction - handouts Verbal instruction PATIENT / FAMILY RESPONSE: Information received as demonstrated by interest and questions FOLLOW-UP PLAN: Patient instructed to call with any further issues SUPPLEMENTAL MATERIAL: None REFERRAL (RECOMMENDATION): None Electronically Signed By: Sruthi Andrade RN In Department: AMBULATORY SURGERY PRE OP LEARNING ASSESSMENT PROCEDURE/SURGERY: GI PROCEDURES: Colonoscopy and EGD READINESS TO LEARN COGNITIVE ABILITY: Alert and oriented MOTIVATION TO LEARN: Interested FAMILY SUPPORT: Unable to assess - Family not present PATIENT LEARNS BEST BY: Individual Instruction Written Instruction - Hand-outs Verbal Instruction FACTORS AFFECTING LEARNING: None PHYSICAL LIMITATIONS AFFECTING LEARNING: None Electronically Signed By: Rosy Quiroga RN In Department: AMBULATORY SURGERY documented in this encounter [facility] 06-12-2023 Attending History and physical note Exam: Abdomen soft, positive bowel sounds, NT, ND. Lungs CTA Cardiac RRR without murmur or gallop with normal S1 and S2. Neuro: Alert and oriented x 3 with petroleum engineer 2-12 intact. EGD and colonoscopy with risks of bleeding, perforation, reaction to anesthesia, infection discussed with informed consent obtained. Source Note - Pack, DILIA Donaldson.AREA DIRECTOR - 05/29/2023 2:40 PM EST DISTANCE HEALTH VISIT This Team Access Model visit is a virtual encounter. It required patient-provider interaction for the medical decision making as documented below. REASON FOR VISIT: follow up, GERD. HPI: Rufino Wadsworth is a 37 year old male who presents for GERD. He admits to constant breakthrough reflux on 20 -40 mg of Omeprazole daily.He has been taking Tums and pepto bismol for breakthrough symptoms. He stopped all NSAID use. He also endorses issues with constipation. He states he can go 2-3 days without a BM. He states he does not feel completely evacuated. He recently started MiraLAX 1 capful daily. He denies unintentional weight loss, melena and hematochezia. Past Clinical Work-Up: [facility] TSE APRRobbAREA DIRECTOR 03/14/2023 ASSESSMENT/PLAN: Mr. Wadsworth is a 37 year old male with a negative medical history presents for GERD. He endorses a longstanding history of GERD for the past few years. He then had constant heartburn for 2 months straight last year. He had improvement with Omeprazole 40 mg daily. He is currently on Omeprazole 20 mg daily. He denies breakthrough symptoms. He presents to establish today. I recommend continuing Omeprazole 20 mg daily for the 1 month and then decreasing to every other day in an effort to wean off. Lifestyle modifications were discussed including losing weight, limiting caffeine, no meals three hours before sleep, and head of bed elevation. The patient is agreeable with the above plan and encouraged to reach out with questions and concerns. 1. Gastroesophageal reflux disease, unspecified whether esophagitis present - ICD9: 530.81, ICD10: K21.9 - Discussed lifestyle modifications including limiting caffeine, no meals three hours before sleep, and head of bed elevation - OMEPRAZOLE 20 MG CAPSULE,DELAYED RELEASE NO RECENT PROCEDURES ALLERGIES Not on File No past medical history on file. No past surgical history on file. No family history on file. Current Outpatient Medications Medication Sig omeprazole (PRILOSEC) 20 mg capsule Take 1 capsule by mouth once daily. No current facility-administered medications for this visit. I have confirmed and edited, if necessary, the PFSH obtained by others. REVIEW OF SYSTEMS: GENERAL: No weight loss, malaise or fevers RESPIRATORY: Negative for cough, hemoptysis, wheezing, dyspnea or shortness of breath CARDIOVASCULAR: Negative for chest pain, leg swelling, or palpitations GI: See HPI PHYSICAL EXAM: General - Normal, healthy, cooperative, in no acute distress Able to interact verbally by video conference Psych - ORIENTATION: normal to time place, person and situation Mood/Affect: AFFECT AND MOOD: Normal Head/Neuro - Normal size and shape Facial appearance normal Pulmonary - respiratory effort normal Cardiovascular - patient describes extremities normal, warm, no cyanosis,no clubbing, and no edema Abdominal - Not performed Skin - abnormal lesions not visualized Motor - patient seen sitting with Normal appearing strength and coordination ASSESSMENT/PLAN: Mr. Wadsworth is a 37 year old male with a history of GERD presents for GERD and constipation. He admits to constant breakthrough reflux on 20 -40 mg of Omeprazole daily.He has been taking Tums and pepto bismol for breakthrough symptoms. I recommend an EGD for further evaluation of his breakthrough reflux. He also endorses issues with constipation. He states he can go 2-3 days without a BM. He states he does not feel completely evacuated. He recently started MiraLAX 1 capful daily.I recommend continuing MiraLAX 1 capful daily and increasing his water intake. Procedure/risks were discussed with the patient in great detail including the risk of sedation and bleeding. Patient is agreeable with proceeding and instructed to call with any questions or concerns. 1. Gastroesophageal reflux disease, unspecified whether esophagitis present - ICD9: 530.81, ICD10: K21.9 (primary diagnosis) - Discussed lifestyle modifications including limiting caffeine, no meals three hours before sleep, and head of bed elevation - EGD DIAGNOSTIC 2. Constipation, unspecified constipation type - ICD9: 564.00, ICD10: K59.00 - MiraLAX 1 capful daily I spent more than 30 minutes [id number] with the patient and over half the time was devoted to counseling and/or coordination of care. This note was dictated using Carbonated Content speech recognition software and may contain some errors that were a result of the program not accurately transcribing what was dictated. I have communicated my name and active licensure. The patient's identity and physical location were verified at the time of this visit. Either the patient or their legal employment program representative has been informed of the risks and benefits of -- and alternatives to -- treatment through a remote evaluation and consents to proceed with the evaluation remotely. Brandon Tse APRN.HILARY [facility] 06-12-2023 History and physi srinivas note Exam: Abdomen soft, positive bowel sounds, NT, ND. Lungs CTA Cardiac RRR without murmur or gallop with normal S1 and S2. Neuro: Alert and oriented x 3 with petroleum engineer 2-12 intact. EGD and colonoscopy with risks of bleeding, perforation, reaction to anesthesia, infection discussed with informed consent obtained. Source Note - Brandon Tse APRN.AREA DIRECTOR - 05/29/2023 2:40 PM EST DISTANCE HEALTH VISIT This Team Access Model visit is a virtual encounter. It required patient-provider interaction for the medical decision making as documented below. REASON FOR VISIT: follow up, GERD. HPI: Rufino Wadsworth is a 37 year old male who presents for GERD. He admits to constant breakthrough reflux on 20 -40 mg of Omeprazole daily.He has been taking Tums and pepto bismol for breakthrough symptoms. He stopped all NSAID use. He also endorses issues with constipation. He states he can go 2-3 days without a BM. He states he does not feel completely evacuated. He recently started MiraLAX 1 capful daily. He denies unintentional weight loss, melena and hematochezia. Past Clinical Work-Up: LAST BRANDON TSE APRN.AREA DIRECTOR 03/14/2023 ASSESSMENT/PLAN: Mr. Wadsworth is a 37 year old male with a negative medical history presents for GERD. He endorses a longstanding history of GERD for the past few years. He then had constant heartburn for 2 months straight last year. He had improvement with Omeprazole 40 mg daily. He is currently on Omeprazole 20 mg daily. He denies breakthrough symptoms. He presents to establish today. I recommend continuing Omeprazole 20 mg daily for the 1 month and then decreasing to every other day in an effort to wean off. Lifestyle modifications were discussed including losing weight, limiting caffeine, no meals three hours before sleep, and head of bed elevation. The patient is agreeable with the above plan and encouraged to reach out with questions and concerns. 1. Gastroesophageal reflux disease, unspecified whether esophagitis present - ICD9: 530.81, ICD10: K21.9 - Discussed lifestyle modifications including limiting caffeine, no meals three hours before sleep, and head of bed elevation - OMEPRAZOLE 20 MG CAPSULE,DELAYED RELEASE NO RECENT PROCEDURES ALLERGIES Not on File No past medical history on file. No past surgical history on file. No family history on file. Current Outpatient Medications Medication Sig omeprazole (PRILOSEC) 20 mg capsule Take 1 capsule by mouth once daily. No current facility-administered medications for this visit. I have confirmed and edited, if necessary, the PFSH obtained by others. REVIEW OF SYSTEMS: GENERAL: No weight loss, malaise or fevers RESPIRATORY: Negative for cough, hemoptysis, wheezing, dyspnea or shortness of breath CARDIOVASCULAR: Negative for chest pain, leg swelling, or palpitations GI: See HPI PHYSICAL EXAM: General - Normal, healthy, cooperative, in no acute distress Able to interact verbally by video conference Psych - ORIENTATION: normal to time place, person and situation Mood/Affect: AFFECT AND MOOD: Normal Head/Neuro - Normal size and shape Facial appearance normal Pulmonary - respiratory effort normal Cardiovascular - patient describes extremities normal, warm, no cyanosis,no clubbing, and no edema Abdominal - Not performed Skin - abnormal lesions not visualized Motor - patient seen sitting with Normal appearing strength and coordination ASSESSMENT/PLAN: Mr. Wadsworth is a 37 year old male with a history of GERD presents for GERD and constipation. He admits to constant breakthrough reflux on 20 -40 mg of Omeprazole daily.He has been taking Tums and pepto bismol for breakthrough symptoms. I recommend an EGD for further evaluation of his breakthrough reflux. He also endorses issues with constipation. He states he can go 2-3 days without a BM. He states he does not feel completely evacuated. He recently started MiraLAX 1 capful daily.I recommend continuing MiraLAX 1 capful daily and increasing his water intake. Procedure/risks were discussed with the patient in great detail including the risk of sedation and bleeding. Patient is agreeable with proceeding and instructed to call with any questions or concerns. 1. Gastroesophageal reflux disease, unspecified whether esophagitis present - ICD9: 530.81, ICD10: K21.9 (primary diagnosis) - Discussed lifestyle modifications including limiting caffeine, no meals three hours before sleep, and head of bed elevation - EGD DIAGNOSTIC 2. Constipation, unspecified constipation type - ICD9: 564.00, ICD10: K59.00 - MiraLAX 1 capful daily I spent more than 30 minutes [id number] with the patient and over half the time was devoted to counseling and/or coordination of care. This note was dictated using Carbonated Content speech recognition software and may contain some errors that were a result of the program not accurately transcribing what was dictated. I have communicated my name and active licensure. The patient's identity and physical location were verified at the time of this visit. Either the patient or their legal employment program representative has been informed of the risks and benefits of -- and alternatives to -- treatment through a remote evaluation and consents to proceed with the evaluation remotely. Brandon Tse APRN.HILARY documented in this encounter [facility] 06-12-2023 Nurse Note PRE OP LEARNING ASSESSMENT PROCEDURE/SURGERY: GI PROCEDURES: Colonoscopy and EGD READINESS TO LEARN COGNITIVE ABILITY: Alert and oriented MOTIVATION TO LEARN: Interested FAMILY SUPPORT: Unable to assess - Family not present PATIENT LEARNS BEST BY: Individual Instruction Written Instruction - Hand-outs Verbal Instruction FACTORS AFFECTING LEARNING: None PHYSICAL LIMITATIONS AFFECTING LEARNING: None Electronically Signed By: Rosy Quiroga RN In Department: AMBULATORY SURGERY [facility] 06-08-2023 Miscellaneous Notes Formattin g of this note might be different from the original. I did try to call the patient to review 2 day prep instructions. No answer. I had to leave a message. I did send the 2 day colonoscopy prep instructions via [employer]. Office number provided. Thank you Kaya Myers LPN documented in this encounter [facility] 06-01-2023 Instructions Brandon Tse APRN.HILARY - 06/01/2023 2:56 PM EST Images from the original note were not included. Bowel Preparation Instructions for: Miralax-Gatorade Preparations IF YOU DO NOT FOLLOW THESE DIRECTIONS, YOUR COLONOSCOPY WILL BE CANCELLED. Reyes Instructions: Your bowel must be empty so that your doctor can clearly view your colon. Follow all of the instructions in this handout EXACTLY as they are written. Do NOT eat any solid food the ENTIRE day before your colonoscopy. Buy your bowel preparation at least 5 days before your colonoscopy. Four (4) Dulcolax laxative tablets containing 5mg of bisacodyl each (NOT Dulcolax stool softener) One (1) 8.3oz. bottle Miralax (238 grams) or generic equivalent 2 x 32oz. Bottles of Gatorade (NOT RED) Diabetic Patients: Use G2 (Gatorade 2) TRANSPORTATION on the Day of Your Exam A responsible adult MUST be present with you at Check In prior to your colonoscopy and REMAIN in the endoscopy area until you are discharged. You are NOT ALLOWED to drive, take a taxi or bus, or leave the Endoscopy Center ALONE. If you do not have a responsible commercial front load driver (family member or friend) with you to take you home, your exam cannot be done with sedation and will be cancelled. Please bring a list of all of your current medications, including any [id number]-[id number] medications with you. Medications If you take insulin, diabetic medications or blood thinners such as Coumadin (warfarin), Plavix (clopidogrel), Ticlid (ticlopidine hydrochloride), Agrylin (anagrelide), Xarelto (Rivaroxaban), Pradaxa (Dabigatran), Eliquis (Apixaban), and Effient (Prasugrel). You MUST call the doctors who orders those medicines for instructions on altering the dosage before your colonoscopy. All other medications should be taken the day of the exam with a sip of water including ASPIRIN. Five (5) Days Before Your Colonoscopy Do NOT take medicines that stop diarrhea - such as Imodium, Kaopectate, or Pepto Bismol. Do NOT take fiber supplements - such as Metamucil, Citrucel, or Perdiem. Do NOT take products that contain iron - such as multi-vitamins (the label lists what is in the products). Three (3) Days Before Your Colonoscopy Do NOT eat high-fiber foods - such as popcorn, beans, seeds (flax, sunflower, quinoa), multigrain bread, nuts, salad/vegetables, or fresh and dried fruit. 1 Bowel Preparation Instructions for: Miralax-Gatorade Preparations One (1) Day Before Your Colonoscopy Only drink clear liquids the ENTIRE DAY before your colonoscopy. Do NOT eat any solid foods. Drink at least 8 ounces of clear liquids every hour after waking up. The clear liquids you can drink include: Clear Liquid (NO RED LIQUIDS) DO NOT DRINK Gatorade, Pedialyte or Powerade Clear broth or bouillon Coffee or tea (no milk or non-dairy creamer) Carbonated and non-carbonated soft drinks James-Aid or other fruit flavored drinks Strained fruit juices (no pulp) Jell-O, popsicles, hard candy Water Alcohol Milk or non-dairy creamers Noodles or vegetables in soup Juice with pulp Liquid you cannot see through Do not use tobacco/vaping products Mix 1/2 of Miralax bottle (119 grams) in each 32 ounces of Gatorade bottle until dissolved. Keep cool in the refrigerator. DO NOT ADD ICE. The bowel preparation solution will be consumed in two parts. Part 1 5:00 PM - Evening before your colonoscopy Take 4 Dulcolax tablets. 6 PM - Evening before your colonoscopy Drink 32 oz. of the mixed solution. Drink an 8 oz. glass of bowel preparation every 15 minutes for a total of 4 glasses. Fifteen (15) minutes later, drink an 8 oz. glass of of clear liquids every 15 minutes for a total of 2 glasses. You may continue to drink clear liquids till midnight. Part 2 On the day of your colonoscopy you may drink clear liquids up to (three) 3 hours prior to procedure. 4 1/2 hours before your colonoscopy Take another 32 oz. bottle of mixed solution. Drink an 8 oz. glass of bowel prep every 15 minutes for a total of 4 glasses. Fifteen (15) minutes later, drink an 8 oz. glass of clear liquids every 15 minutes for a total of 2 glasses. You may continue to drink clear liquids up to (three) 3 hours before your exam. 03/2019 documented in this encounter [facility] 06-01-2023 Miscellaneous Notes Formattin g of this note might be different from the original. Called patient to discuss [facility] ([facility])hart message. Left message to call back. Brandon Tse APRN.CNP documented in this encounter [facility] 06-01-2023 Miscellaneous Notes Formattin g of this note might be different from the original. Called and spoke with patient. No consistent BM in over a week. Only a little bit of liquid every now and then. Didn't mention bleeding during virtual visit on 05/29/23. Currently denies any rectal bleeding. When he was having bleeding before, it was off and on for a few months. Bright red in the toilet, sometimes a lot, some times just on toilet paper. documented in this encounter [facility] 05-29-2023 Instructions Brandon Tse APRN.CNP - 05/29/2023 2:48 PM EST Thank you for seeing me in clinic today. As we discussed, my recommendations are as follows: 1.MiraLAX 1 capful daily 2.EGD If you have any questions about the above treatment plan, please do not hesitate to call the office or send me a [place] message. Please try to adhere to the following lifestyle habits that can help mitigate acid reflux symptoms: Avoid trigger foods , or food/drink that tend to precipitate acid reflux symptoms. Common offenders include alcohol, fatty/spicy meals, tomato sauce, chocolate, caffeinated beverages such as coffee and tea, carbonated beverages and peppermint. Elevate the head of your bed to 45 degrees (or 6 inches above) with a foam wedge or 2-3 pillows, especially if symptoms occur at night or early in the morning Remain upright for at least 3 hours after meals Avoid late night snacking Make efforts to reduce overall stress and anxiety, if able OBESE/OVERWEIGHT: Losing weight can be one of the most effective ways to reduce acid reflux symptoms and, in some cases, reduce the need for long-term acid suppression. Aim to lose 10-15 lbs over the next 6 months if possible with dietary modifications and exercise, if deemed safe by your primary care provider or gift wrapper. SMOKERS: Stop smoking PPI users: Take your proton pump inhibitor, such as Prilosec, Protonix or Nexium, as prescribed. It works best if you take this 30-60 minutes before a meal on an empty stomach. Avoid medications like ibuprofen (Motrin, Advil), naproxen (Aleve) and meloxicam (Mobic) as these can irritate the stomach and cause ulcers. Tylenol is a reasonable alternative if needed for pain control purely from an acid reflux standpoint since it does not irritate the stomach. documented in this encounter [facility] 05-29-2023 History and physi srinivas note DISTANCE HEALTH VISIT This Team Access Model visit is a virtual encounter. It required patient-provider interaction for the medical decision making as documented below. REASON FOR VISIT: follow up, GERD. HPI: Rufino Wadsworth is a 37 year old male who presents for GERD. He admits to constant breakthrough reflux on 20 -40 mg of Omeprazole daily.He has been taking Tums and pepto bismol for breakthrough symptoms. He stopped all NSAID use. He also endorses issues with constipation. He states he can go 2-3 days without a BM. He states he does not feel completely evacuated. He recently started MiraLAX 1 capful daily. He denies unintentional weight loss, melena and hematochezia. Past Clinical Work-Up: BRANDON FISHMAN APRN.AREA DIRECTOR 03/14/2023 ASSESSMENT/PLAN: Mr. Wadsworth is a 37 year old male with a negative medical history presents for GERD. He endorses a longstanding history of GERD for the past few years. He then had constant heartburn for 2 months straight last year. He had improvement with Omeprazole 40 mg daily. He is currently on Omeprazole 20 mg daily. He denies breakthrough symptoms. He presents to establish today. I recommend continuing Omeprazole 20 mg daily for the 1 month and then decreasing to every other day in an effort to wean off. Lifestyle modifications were discussed including losing weight, limiting caffeine, no meals three hours before sleep, and head of bed elevation. The patient is agreeable with the above plan and encouraged to reach out with questions and concerns. 1. Gastroesophageal reflux disease, unspecified whether esophagitis present - ICD9: 530.81, ICD10: K21.9 - Discussed lifestyle modifications including limiting caffeine, no meals three hours before sleep, and head of bed elevation - OMEPRAZOLE 20 MG CAPSULE,DELAYED RELEASE NO RECENT PROCEDURES ALLERGIES Not on File No past medical history on file. No past surgical history on file. No family history on file. Current Outpatient Medications Medication Sig omeprazole (PRILOSEC) 20 mg capsule Take 1 capsule by mouth once daily. No current facility-administered medications for this visit. I have confirmed and edited, if necessary, the PFSH obtained by others. REVIEW OF SYSTEMS: GENERAL: No weight loss, malaise or fevers RESPIRATORY: Negative for cough, hemoptysis, wheezing, dyspnea or shortness of breath CARDIOVASCULAR: Negative for chest pain, leg swelling, or palpitations GI: See HPI PHYSICAL EXAM: General - Normal, healthy, cooperative, in no acute distress Able to interact verbally by video conference Psych - ORIENTATION: normal to time place, person and situation Mood/Affect: AFFECT AND MOOD: Normal Head/Neuro - Normal size and shape Facial appearance normal Pulmonary - respiratory effort normal Cardiovascular - patient describes extremities normal, warm, no cyanosis,no clubbing, and no edema Abdominal - Not performed Skin - abnormal lesions not visualized Motor - patient seen sitting with Normal appearing strength and coordination ASSESSMENT/PLAN: Mr. Wadsworth is a 37 year old male with a history of GERD presents for GERD and constipation. He admits to constant breakthrough reflux on 20 -40 mg of Omeprazole daily.He has been taking Tums and pepto bismol for breakthrough symptoms. I recommend an EGD for further evaluation of his breakthrough reflux. He also endorses issues with constipation. He states he can go 2-3 days without a BM. He states he does not feel completely evacuated. He recently started MiraLAX 1 capful daily.I recommend continuing MiraLAX 1 capful daily and increasing his water intake. Procedure/risks were discussed with the patient in great detail including the risk of sedation and bleeding. Patient is agreeable with proceeding and instructed to call with any questions or concerns. 1. Gastroesophageal reflux disease, unspecified whether esophagitis present - ICD9: 530.81, ICD10: K21.9 (primary diagnosis) - Discussed lifestyle modifications including limiting caffeine, no meals three hours before sleep, and head of bed elevation - EGD DIAGNOSTIC 2. Constipation, unspecified constipation type - ICD9: 564.00, ICD10: K59.00 - MiraLAX 1 capful daily I spent more than 30 minutes [id number] with the patient and over half the time was devoted to counseling and/or coordination of care. This note was dictated using [employer] speech recognition software and may contain some errors that were a result of the program not accurately transcribing what was dictated. I have communicated my name and active licensure. The patient's identity and physical location were verified at the time of this visit. Either the patient or their legal employment program representative has been informed of the risks and benefits of -- and alternatives to -- treatment through a remote evaluation and consents to proceed with the evaluation remotely. Brandon Tse APRN.CNP documented in this [facility] [facility] 03-14-2023 Instructions Brandon Tse APRN.CNP - 03/14/2023 3:06 PM EST Please try to adhere to the following lifestyle habits that can help mitigate acid reflux symptoms: Avoid trigger foods , or food/drink that tend to precipitate acid reflux symptoms. Common offenders include alcohol, fatty/spicy meals, tomato sauce, chocolate, caffeinated beverages such as coffee and tea, carbonated beverages and peppermint. Elevate the head of your bed to 45 degrees (or 6 inches above) with a foam wedge or 2-3 pillows, especially if symptoms occur at night or early in the morning Remain upright for at least 3 hours after meals Avoid late night snacking Make efforts to reduce overall stress and anxiety, if able OBESE/OVERWEIGHT: Losing weight can be one of the most effective ways to reduce acid reflux symptoms and, in some cases, reduce the need for long-term acid suppression. Aim to lose 10-15 lbs over the next 6 months if possible with dietary modifications and exercise, if deemed safe by your primary care provider or gift wrapper. SMOKERS: Stop smoking PPI users: Take your proton pump inhibitor, such as Prilosec, Protonix or Nexium, as prescribed. It works best if you take this 30-60 minutes before a meal on an empty stomach. Avoid medications like ibuprofen (Motrin, Advil), naproxen (Aleve) and meloxicam (Mobic) as these can irritate the stomach and cause ulcers. Tylenol is a reasonable alternative if needed for pain control purely from an acid reflux standpoint since it does not irritate the stomach. documented in this encounter [facility] 03-14-2023 History and physi srinivas note DISTANCE HEALTH VISIT This Team Access Model visit is a virtual encounter. It required patient-provider interaction for the medical decision making as documented below. REASON FOR VISIT: heartburn HPI: Rufino Wadsworth is a 37 year old male who presents for heartburn. He endorses a longstanding history of GERD for the past few years. He then had constant heartburn for 2 months straight last year. He had improvement with Omeprazole 40 mg daily. He is currently on Omeprazole 20 mg daily. He denies breakthrough symptoms.No NSAID use, smoking or alcohol intake. He presents to establish today. Patient denies dysphagia, early satiety, nausea, vomiting, abdominal pain, changes in appetite, change in bowel habits, unintentional weight loss, melena, hematochezia or hematemesis. No prior history of EGD or colonoscopy. No known FHx of GI tract malignancy or disease. No prior abdominopelvic surgeries. Past Clinical Work-Up: ALLERGIES Not on File No past medical history on file. No past surgical history on file. No family history on file. No current outpatient medications on file. No current facility-administered medications for this visit. I have confirmed and edited, if necessary, the PFSH obtained by others. REVIEW OF SYSTEMS: GENERAL: No weight loss, malaise or fevers RESPIRATORY: Negative for cough, hemoptysis, wheezing, dyspnea or shortness of breath CARDIOVASCULAR: Negative for chest pain, leg swelling, or palpitations GI: See HPI PHYSICAL EXAM: General - Normal, healthy, cooperative, in no acute distress Able to interact verbally by video conference Psych - ORIENTATION: normal to time place, person and situation Mood/Affect: AFFECT AND MOOD: Normal Head/Neuro - Normal size and shape Facial appearance normal Pulmonary - respiratory effort normal Cardiovascular - patient describes extremities normal, warm, no cyanosis,no clubbing, and no edema Abdominal - Not performed Skin - abnormal lesions not visualized Motor - patient seen sitting with Normal appearing strength and coordination ASSESSMENT/PLAN: Mr. Wadsworth is a 37 year old male with a negative medical history presents for GERD. He endorses a longstanding history of GERD for the past few years. He then had constant heartburn for 2 months straight last year. He had improvement with Omeprazole 40 mg daily. He is currently on Omeprazole 20 mg daily. He denies breakthrough symptoms. He presents to establish today. I recommend continuing Omeprazole 20 mg daily for the 1 month and then decreasing to every other day in an effort to wean off. Lifestyle modifications were discussed including losing weight, limiting caffeine, no meals three hours before sleep, and head of bed elevation. The patient is agreeable with the above plan and encouraged to reach out with questions and concerns. 1. Gastroesophageal reflux disease, unspecified whether esophagitis present - ICD9: 530.81, ICD10: K21.9 - Discussed lifestyle modifications including limiting caffeine, no meals three hours before sleep, and head of bed elevation - OMEPRAZOLE 20 MG CAPSULE,DELAYED RELEASE I spent more than 25 minutes [id number] with the patient and over half the time was devoted to counseling and/or coordination of care. This note was dictated using [employer] speech recognition software and may contain some errors that were a result of the program not accurately transcribing what was dictated. I have communicated my name and active licensure. The patient's identity and physical location were verified at the time of this visit. Either the patient or their legal employment program representative has been informed of the risks and benefits of -- and alternatives to -- treatment through a remote evaluation and consents to proceed with the evaluation remotely. Brandon Tse APRN.CNP documented in this encounter [facility] 09-19-2021 Evaluation note Encounter Date Diagnosis Assessment Notes Sep, Cough (ICD-10 - R05.9) Sep, COVID-19 (ICD-10 - U07.1) Today you tested positive for the COVID virus. This mean you need to follow all CDC quarantine guidelines found at coronavirus.[place].gov. It is important to rest, increase fluids, and stay at home. Contact PCP and inform them of results. Medications like Mucinex, Cepacol, Tylenol, saline nasal spray are over the counter medications that can help with the symptoms. Current guidelines include staying home, having no fever above 100.4 for 24 hours without medication and having significant improvement of symptoms before you are allowed to stop your quarantine.. For full guidelines go to CDC. GOV. Contact primary care and ask for guidance is essential to follow up * EDUCATION HANDOUT GIVEN ON OTC TREATMENTS, FOLLOW UP AND WHEN TO SEEK EMERGENCY TREATMENT Sep, Right acute otitis media (ICD-10 - H66.91) Ear infections are often a secondary infection caused from an URI, the flu or allergies. Take medication as directed. Complete all doses, even if you feel better. Tylenol or ibuprofen can help with pain. Warm pack to area for comfort helps as well. Follow up with primary care provider if no improvement of symptoms. [employer] Other Evaluation noteNo assessment information available [facility] Work Phone: evaluation note* Diagnosis Gastroesophageal reflux disease, unspecified whether esophagitis present- Primary [facility] Diagnosis Gastroesophageal reflux disease, unspecified whether esophagitis present- Primary Constipation, unspecified constipation type [facility] Diagnosis Rectal bleeding- Primary Hemorrhage of rectum and anus [facility] Diagnosis Diarrhea, unspecified type- Primary Rectal bleeding Hemorrhage of rectum and anus [facility] Diagnosis Gastroesophageal reflux disease, unspecified whether esophagitis present [facility] Diagnosis Gastroesophageal reflux disease, unspecified whether esophagitis present Rectal bleeding Hemorrhage of rectum and anus [facility] Diagnosis Internal derangement of left knee- Primary Left knee pain, unspecified chronicity documented in this encounter [facility]* Diagnosis Internal derangement of left knee- Primary Left knee pain, unspecified chronicity documented in this encounter [facility] HealthcareHistory general Narrative - Reported* Type Description Date Surgical History HERNIA REPAIR [employer] Other Hospital Discharge instructions Additional Instructions Take the antibiotics until completed of the cephalexin 4 times a day for 10 days and the Levaquin 750 once a day for 7 days The Levaquin put you at risk for a Achilles tendon rupture however because of your foot injury you will be running or jumping which would you at less risk Keep the wound clean and dry May wash with soap and water do not use peroxide or alcohol apply antibiotic ointment and bandage May take ibuprofen every 6 hours for pain I did send you home with 2 hydrocodone to take for severe pain Tomorrow try to call for orthopedic surgery or podiatry for an evaluation and care I gave you numbers close to [place] Return to an ER for redness swelling fever chills purulent drainage or any [facility] Work Phone: Reason for referral (narrative)* Outpatient Procedure (Routine) - Authorized Specialty Diagnoses / Procedures Referred By Contac t Referred To Contact [facility] Diagnoses Gastroesophageal reflux disease, unspecified whether esophagitis present Procedures EGD DIAGNOSTIC ESOPHAGOGASTRODUODENOSC OPY TRANSORAL DIAGNOSTIC Brandon Tse APRN.CNP [address] [place] [address] [facility] [address] [place] [address] Referral ID Status Reason Start Date Expiration Date Visits Requested Visits Authorized [id number] Authorized Auto-Generat ed Referral 05/29/2023 05/29/2024 1 1 [facility] for referral (narrative)* Outpatient Procedure (Routine) - Authorized Specialty Diagnoses / Procedures Referred By Contac t Referred To Contact [facility] Diagnoses Rectal bleeding Procedures COLONOSCOPY DIAGNOSTIC COLONOSCOPY FLX DX W/COLLJ SPEC WHEN Brandon Berg APRN.CNP [address] [facility] [address] [facility] [address] [place] [address] Referral ID Status Reason Start Date Expiration Date Visits Requested Visits Authorized [id number] Authorized Auto-Generat ed Referral 06/01/2023 06/01/2024 1 1 [facility] for referral (narrative)* Outpatient Procedure (Routine) - Closed Specialty Diagnoses / Procedures Referred By Contac t Referred To Contact [facility] Diagnoses Rectal bleeding Procedures COLONOSCOPY DIAGNOSTIC COLONOSCOPY FLX DX W/COLLJ SPEC WHEN Brandon Berg APRN.CNP [address] [facility] [place] [address] [facility] [address] [place] [address] Referral ID Status Reason Start Date Expiration Date V isits Requested Visits Authorized [id number] Closed Auto-Generate d Referral 06/01/2023 06/01/2024 1 1 * Outpatient Procedure (Routine) - Closed Specialty Diagnoses / Procedures Referred By River kee Referred To Contact [facility] Diagnoses Gastroesophageal reflux disease, unspecified whether esophagitis present Procedures EGD DIAGNOSTIC ESOPHAGOGASTRODUODENOSC OPY TRANSORAL DIAGNOSTIC Brandon Tse APRN.CNP [address] [place] [address] [address] Referral ID Status Reason Start Date Expiration Date V isits Requested Visits Authorized [id number] Closed Auto-Generate d Referral 05/29/2023 05/29/2024 1 1 [facility] Procedure (Routine) - Closed Specialty Diagnoses / Procedures Referred By River kee Referred To Contact [facility] Diagnoses Rectal bleeding Procedures COLONOSCOPY DIAGNOSTIC COLONOSCOPY FLX DX W/COLLJ SPEC WHEN [facility] Brandon Tse APRN.AREA DIRECTOR [address] [place] [address] [facility] [address] [place] [address] Referral ID Status Reason Start Date Expiration Date V isits Requested Visits Authorized [id number] Closed Auto-Generate d Referral 06/01/2023 06/01/2024 1 1 [facility] Summary Purpose Family History No Family History Records FoundNo Family History Records FoundNo Family History Records FoundNo Family History Records Found Advance Directives Advance Directive Response Recorded Date/ Time Advance Directives No April 24, 2018 6:12pm Chief Complaint and Reason for Visit Chief Complaint RT FOOT INJURY Additional Source Comments REASON FOR VISIT (unrecogniz ed section and content) Reason Comments GERD Reason Comments GERD Reason Comments Refill Request Reason Comments Follow-up Reason Comments Pain (unrecognized sect ion and content) No Status Records FoundNo Status Records FoundNo Status Records FoundNo Status Records Found INFORMATION SOURCE (unrecogn ized section and content) DATE CREATED AUTHOR 08/05/2022 [facility] DATE CREATED AUTHOR AUTHOR'S ORGANIZ ATION 11/05/2022 [facility] DATE CREATED AUTHOR AUTHOR'S ORGANIZ ATION 06/14/2023 [facility] DATE CREATED AUTHOR AUTHOR'S ORGANIZ ATION 02/27/2024 [facility] EPIC Care Teams (unrecognized sec tion and content) Team Status: Active Member Role Status Dates Jacqueline Owens MD Primary Care Provider Active Team Status: Inactive Member Role Status Dates Jacqueline Owens MD Primary Care Provider Active Cheyanne Montaño , VICE PRESIDENT OF OPERATIONS- Emergency Provider Active Press Cleaner Relationship Specialty Start Date End Date Jacqueline Owens MD [address] [place] [address] PCP - General Family Medicine 11/07/22 Press Cleaner Relationship Specialty Start Date End Date Jacqueline Owens MD [address] [place] [address] PCP - General Family Medicine 11/07/22 Press Cleaner Relationship Specialty Start Date End Date Jacqueline Owens MD [address] [place] [address] PCP - General Family Medicine 11/07/22 Press Cleaner Relationship Specialty Start Date End Date Jacqueline Owens MD [address] [facility] [place] [address] PCP - General Family Medicine 11/07/22 Goals (unrecognized section and content) Goals may be documented in a n alternate section Source Comments (unrecognize d section and content) In the event this informatio n is protected by the Federal Confidentiality of Alcohol and Drug Abuse Patient Records regulations: The Federal rules restrict any use of the information to criminally investigate or prosecute any alcohol or drug abuse patient.[facility] the event this information is protected by the Federal Confidentiality of Alcohol and Drug Abuse Patient Records regulations: The Federal rules restrict any use of the information to criminally investigate or prosecute any alcohol or drug abuse patient.[facility] the event this information is protected by the Federal Confidentiality of Alcohol and Drug Abuse Patient Records regulations: The Federal rules restrict any use of the information to criminally investigate or prosecute any alcohol or drug abuse patient.[facility] the event this information is protected by the Federal Confidentiality of Alcohol and Drug Abuse Patient Records regulations: The Federal rules restrict any use of the information to criminally investigate or prosecute any alcohol or drug abuse patient.[facility] the event this information is protected by the Federal Confidentiality of Alcohol and Drug Abuse Patient Records regulations: The Federal rules restrict any use of the information to criminally investigate or prosecute any alcohol or drug abuse patient.[facility] the event this information is protected by the Federal Confidentiality of Alcohol and Drug Abuse Patient Records regulations: The Federal rules restrict any use of the information to criminally investigate or prosecute any alcohol or drug abuse patient.[facility] the event this information is protected by the Federal Confidentiality of Alcohol and Drug Abuse Patient Records regulations: The Federal rules restrict any use of the information to criminally investigate or prosecute any alcohol or drug abuse patient.[facility] the event this information is protected by the Federal Confidentiality of Alcohol and Drug Abuse Patient Records regulations: The Federal rules restrict any use of the information to criminally investigate or prosecute any alcohol or drug abuse patient.[facility] FOR RECORDS PERTAINING TO PATIENTS WHO ARE OR HAVE BEEN ENROLLED IN A CHEMICAL DEPENDENCY/SUBSTANCEABUSE PROGRAM, SOME INFORMATION MAY BE OMITTED. This clinical summary was aggregated from multiple sources. Caution should be exercised in using it in the provision of clinical care. This summary normalizes information from multiple sources, and as a consequence, information in this document may materially change the coding, format and clinical context of patient data. In addition, data may be omitted in some cases. CLINICAL DECISIONS SHOULD BE BASED ON THE PRIMARY CLINICAL RECORDS. [employer] [facility]. provides no warranty or guarantee of the accuracy or completeness of information in this document.
== END 2024-04-07 15:26 | disposition home or self-care (01) ==
PROVIDERS: PCP Radiology Diagnostic Radiology; Visit Provider Radiology Diagnostic Radiology
DX: I80.02 Phlebitis and thrombophlebitis of superficial vessels of left lower extremity (principal)
CPT/HCPCS: 93971; G0463

== ENCOUNTER 2024-05-02 12:24 | Outpatient (OUT) | payer OTHER, SELFPAY ==
[2024-05-02] MEDS: 0.9 % SODIUM CHLORIDE 500 ML, LIDOCAINE HCL 20 ML, SODIUM BICARBONATE 10 MEQ INJ (12:26)
--- NOTE | 2024-05-02 12:27 | VEIN_ITS ---
[address] [address] Patient Name: PETEY WADSWORTH MRN: [id number] date: 1985 Sex: M Assigned Patient Location: Current Patient Location: Accession/Order Number: [id number] Exam Date: 05/02/2024 12:30 Report Date: 05/02/2024 13:20 At the request of: SHEYLA GUARDADO Procedure: VC Endovenous Ablation 1VeinRT EXAMINATION: VC Endovenous Ablation 1Vein right great saphenous vein HISTORY: I83.813 - Varicose veins of bilateral lower extremities w... COMPARISON: No relevant comparison available. TECHNIQUE: The risks and benefits of the procedure had been previously discussed, and were rediscussed at length. Informed written consent was obtained. Deborah Shannon and Basilio Linn assisted. Time out procedure was performed. The right lower extremity was prepared and draped in the usual sterile fashion to allow knee flexion in the sterile field. Duplex ultrasound probe was draped in a sterile cover, sterile transmission gel was used. Venous mapping was performed with the areas of dilation and large tributaries marked. The total length was 32 cm from the entry just below the knee to 3 cm below the saphenofemoral junction. The diameter of the greater saphenous vein ranged from 8-11 mm. A 30 gauge needle and 1% buffered lidocaine was used to anesthetize the entry site. A 4 mm incision was made with a scalpel and the saphenous vein was entered percutaneously under direct ultrasound guidance with a micropuncture set, a single stick was successful in gaining access. A micro-guide wire was inserted and the needle removed. A micro-set including a dilator was inserted over the microwire and the needle and dilator were removed. A 0.018 guide wire was inserted through the micro-set and threaded through the saphenous vein to the saphenofemoral junction. The dilator was removed and an introducer sheath was inserted over the wire until the end of the sheath entered the saphenofemoral junction. The dilator and wire were removed and the 600 micron fiber was introduced and placed and positioned so that it extended beyond the sheath and was 3 cm peripheral to the saphenofemoral femoral junction. Final position of the fiber was determined by ultrasound guidance and duplex imaging. Vladimircent anesthetic was delivered by ultrasound guidance. 150 cc of fluid was delivered along the entire course of the saphenous vein. The solution consisted of 1000 cc of normal saline with 40 mL of 1% lidocaine and 20 mL of sodium bicarbonate. A final positioning check was made. The energy source was turned on by means of the foot pedal and the fiber and sheath were withdrawn. The total number of Joules delivered was 1624. The laser was active for 203 seconds under continuous pulse, average laser use of 8 J. Laser start time 1303 . Laser stop time 1306 . A duplex ultrasound revealed compressibility and flow at the saphenofemoral junction immediately after the procedure. Hemostasis at the access site was achieved. The skin incision of the saphenous vein was closed with a 4 x 4. A compression stocking was applied. Postop instructions were given. A follow up appointment was recommended and scheduled. The patient tolerated the procedure well and was discharged in good condition . VEIN/VC Endovenous Ablation 1VeinRT IMPRESSION: Technically successful endovenous laser ablation right great saphenous vein Electronically authenticated by: MARYAM JORDAN Date: 05/02/2024 13:20
[2024-05-02 12:31] VITALS: BP 134/74; PULSE 71; O2SAT 98
--- NOTE | 2024-05-02 12:31 | VEINCLINIC_ITS ---
Vital Signs 05/02/24 12:31 BP 134/74 BP Location Left Brachial BP Position Sitting BP Cuff Size Adult BP Source Automatic Cuff Respiration 16 Pulse 71 Pulse Source Monitor Pulse Oximetry (%) 98 Oxygen Delivery Method Room Air Comment The patient's blood pressure is elevated. Varicose Veins Patient in this day for EVLT of right Damien Oneal MD personally performed the services described in this documentation, as scribed by Basilio Linn RN in my presence and it is both accurate and complete. Basilio Oneal RN, am scribing for, and in the presence of, Dr. Damien Lynch and in the presence of the patient. thigh: bilateral (symptoms bilaterally equal), knee: bilateral, calf: bilateral, ankle: bilateral and manning: bilateral aching, burning, cramping and tender 4 2 years Worsened in recent months: Yes standing elevating extremities, compression stockings and exercise Reports muscle spasms of leg, limb pain and leg edema History of lower extremity trauma: No Superficial thrombophlebitis: No Family history of varicose veins: yes Has patient had previous lower extremity venous surgery: No Patient has previously received the following treatment(s) for lower extremity varicose veins: Reports none Does patient have a history of : not applicable Does patient intend to have future pregnancies: not applicable Has patient had lower extremity venous scan with relux testing: No Support hose used: Yes Problems walking or doing physical activity: Yes How does it affect you: pain affects activity tolerance Do you walk much: Yes Do you stand much: Yes Review of Systems ROS Narrative Damien Oneal MD personally performed the services described in this docum entation, as scribed by Basilio Linn RN in my presence and it is both accurate and complete. Basilio Oneal RN, am scribing for, and in the presence of, Dr. Damien Lynch and in the presence of the patient. Status of ROS 10 or more systems reviewed and unremark able except as noted in history and below Cardiovascular Reports: edema PFSH PFS Medical History (Updated 05/02/24 @ 13:04 by Basilio Linn) Phlebitis and thrombophlebitis of superficial vessels of right lower extremity ?I80.01 - Phlebitis and thrombophlebitis of superficial vessels of right lower extremity (ICD-10) Phlebitis and thrombophlebitis of superficial vessels of left lower extremity ?I80.02 - Phlebitis and thrombophlebitis of superficial vessels of left lower extremity (ICD-10) Hernia ?K46.9 - Unspecified abdominal hernia without obstruction or gangrene (ICD- 10) Varicose veins of bilateral lower extremities with pain ?I83.813 - Varicose veins of bilateral lower extremities with pain (ICD-10) Surgical History (Updated 05/02/24 @ 12:56 by Basilio Linn) Status post laser ablation of incompetent vein ?Z98.890 - Other specified postprocedural states (ICD-10) Status post laser ablation of incompetent vein ?Z98.890 - Other specified postprocedural states (ICD-10) H/O hernia repair ?Z98.890 - Other specified postprocedural states (ICD-10) ?Z87.19 - Personal history of other diseases of the digestive system (ICD-10) Family History (Updated 03/19/24 @ 15:36 by Basilio Linn) Other Family history of CHF (congestive heart failure) Family history of diabetes mellitus Family history of hypertension Family history of myocardial infarction Pain due to varicose veins of both lower extremities Social History (Updated 03/19/24 @ 15:35 by Basilio Linn) Within the past year, how often did you have a drink containing alcohol: 2-4 times a month Smoking status: Never smoker Non-prescribed substance use: denies use Meds Home Medications and Allergies Home Medications ?Medication ?Instructions ?Recorded ?Confirmed ?Type No Known Home Medications 03/19/24 03/19/24 History Allergies Allergy/AdvReac Type Severity Reaction Status Date / Time No Known Drug Allergies Allergy Verified 03/19/24 16:21 Exam Narrative Exam Narrative: Damien Oneal MD personally performed the services described in this documentation, as scribed by Basilio Linn RN in my presence and it is both accurate and complete. Basilio Oneal RN, am scribing for, and in the presence of, Dr. Damien Lynch and in the presence of the patient. Constitutional Documenting provider has reviewed patient's vital signs: yes Common normals: oriented x3 Lymph Lymphatic: no lymphedema noted Cardio Peripheral pulses: posterior tibial pulses present and dorsalis pedis pulses present Extremity Common normals: normal capillary refill General: calf tenderness and edema Right lower extremity: lower leg Right lower leg: inspection and palpation Left lower extremity: lower leg Left lower leg: inspection and palpation Neuro Common normals: oriented x3 Assessment and Plan Assessment and Plan (1) Varicose veins of bilateral lower extremities with pain: Plan f/u evaluation with physician along with right leg limited u/s IDamien MD personally performed the services described in this documentation, as scribed by Basilio Linn RN in my presence and it is both accurate and complete. IBasilio RN, am scribing for, and in the presence of, Dr. Damien Lynch and in the presence of the patient. Procedures Procedure Instructions Procedures Plan of care: Risks and benefits of the procedure were discussed at length and informed written consent was obtained.? Time-out completed for verification of correct patient, procedure and site.? Staff present during time-out: Basilio Linn RN,? Damien Lynch MD, [facility],RVT. Time Out Time_1687 Patient prepped and procedure performed in usual sterile fashion. Risk of injury related to use of Diode laser and/or laser devices?__CR___ ? Serial number of laser used :? [id number] Control panel self test performed, electrical cords in good condition, floor is dry, basin of water available, fire extinguisher in close proximity_CR__ Polycarbonate goggles available and Laser warning signs outside of doors___CR__ Eye protection provided to patient and staff in room_CR___ Use of laser retardant drapes and dull blackened instruments as directed__CR___ Use of nonflammable prep solutions and use of saline soaked sponges to protect tissues as indicated _CR___ Length ___32 cm Laser operated by _Dr. Lynch Physician verbal confirmation laser locked in place__CR__ Laser start time (date and time) _05/02/2024@_1303 Laser stop time(date and time) __05/02/2024@_1306 [place] _8.0___ Average laser use __1624 Joules Average laser use___203 seconds Pulse continuous ___CR_? Pulse intermittent ___ Amount of Tumescent used _150cc Evaluated patient for signs and symptoms of electrical injury __CR___ ? Skin clear at insertion site __CR___ Patient tolerated procedure well.? Left leg Coban dressing applied to access site.? Applied Left thigh high leg compression stocking. Will return on 05/08/2024 for Left leg limited venous ultrasound and exam. I, Damien Lynch MD personally performed the services described in this documentation, as scribed by Basilio Linn RN in my presence and it is both accurate and complete. I, Basilio Linn RN, am scribing for, and in the presence of, Dr. Damien Lynch and in the presence of the patient.
[2024-05-02] MEDS: LIDOCAINE HCL 1% 100 MG/10 ML MDV INJ (13:00)
--- NOTE | 2024-05-02 13:01 | W.VEIN ---
Discharge Plan Discharge Disposition: Home, Self-Care Outpatient Diagnostics: [facility] Facility EST LMTD (Routine) Timeframe: 2 Weeks Facility: [facility] - Location: Vein Center Ordered By: Damien Lynch VC EXT Venous RT LMTD (Routine) Timeframe: 2 Weeks Facility: [facility] - Location: Vein Center Ordered By: Damien Lynch Follow Up Appointments: 05/08/2024 Plan of Treatment: f/u evaluation with physician along with right leg limited u/s Patient Instructions: Endovenous Ablation (DC) Print Language: Nepali Discharge Date/Time: 05/02/24 13:05
== END 2024-05-02 13:05 | disposition home or self-care (01) ==
PROVIDERS: PCP Radiology Diagnostic Radiology; Visit Provider Radiology Diagnostic Radiology
DX: I83.813 Varicose veins of bilateral lower extremities with pain (principal)
CPT/HCPCS: 36478

== ENCOUNTER 2024-05-08 15:25 | Outpatient (OUT) | payer OTHER, SELFPAY ==
--- NOTE | 2024-05-08 15:26 | VEIN_ITS ---
Patient Name: PETEY WADSWORTH MR#: [id number] : 1985 Exam Date: 05/08/2024 Ordering Doctor: DR MARYAM JORDAN M.D. RADIOLOGY REPORT PROCEDURE: [facility] EST LMTD VEIN CENTER - OFFICE VISIT FOLLOW UP [facility]. PROGRESS NOTES: The patient reports improvement in leg symptoms. There has been interval reduction in varicosities. The patient has followed our recommendations to walk 20-30 minutes once or twice per day since the procedure. Physical exam demonstrates decrease in varicosities of the leg. Persistent varicosities are identified along the legs bilaterally. Review of the ultrasound performed the same day demonstrates occlusive thrombus extending throughout the treated vein(s), see separate report, consistent with a successful ablation. No thrombus extending into or beyond the saphenofemoral junction. The patient expressed a desire to proceed with treatment of remaining incompetent varicosities. The patient was informed that treatment was a process and would require several procedures/sessions. VEIN/[facility] EST LMTD IMPRESSION: 1. Successful ablation of the right great saphenous vein(s). 2. Persistent varicose veins and lower extremity symptoms. PLAN: 1. Endovenous laser ablation of left anterior accessory saphenous vein. Nurse notes, history and physical were reviewed and confirmed, see attached forms. The nurse was present throughout the physical exam and consultation Dictated by: Jeremías Silveira M.D. on 05/08/2024 at 16:03 Approved by: Jeremías Silveira M.D. on 05/08/2024 at 16:03
--- NOTE | 2024-05-08 15:26 | VEIN_ITS ---
Patient Name: PETEY WADSWORTH MR#: [id number] : 1985 Exam Date: 05/08/2024 Ordering Doctor: DR MARYAM JORDAN M.D. RADIOLOGY REPORT PROCEDURE: VC EXT VENOUS RT LMTD COMPARISON: None. INDICATIONS: I80.01 - Phlebitis and thrombophlebitis of superficial ve... TECHNIQUE: Lower extremity lewis scale and Duplex Doppler evaluation of the deep venous system from the inguinal ligament through the calf veins. FINDINGS: REGION: Right lower extremity. THROMBI: Negative for DVT. Heat induced thrombus visualized 1.4cm from the SFJ. The heat induced thrombus extends from groin to distal thigh. COMPRESSIBILITY: Non-compressible segments corresponding to thrombus FLOW: Areas of no flow corresponding to thrombus OTHER: CONCLUSION: 1. Successful post ablation occlusion of right great saphenous vein. Dictated by: Jeremías Silveira M.D. on 05/08/2024 at 16:02 Approved by: Jeremías Silveira M.D. on 05/08/2024 at 16:02
--- NOTE | 2024-05-08 15:27 | VEINCLINIC_ITS ---
Varicose Veins Patient in this day for follow up ultrasound post EVLT of right GSV. Jeremías Oneal MD personally performed the services described in this documentation, as scribed by Angelina Rosen RVT, RDMS in my presence and it is both accurate and complete. Angelina Oneal RVT, RDMS, am scribing for, and in the presence of, Dr. Jeremías Silveira and in the presence of the patient. thigh: bilateral (symptoms bilaterally equal), knee: bilateral, calf: bilateral, ankle: bilateral and manning: bilateral aching, burning, cramping and tender 4 2 years Worsened in recent months: Yes standing elevating extremities, compression stockings and exercise Reports muscle spasms of leg, limb pain and leg edema History of lower extremity trauma: No Superficial thrombophlebitis: No Family history of varicose veins: yes Has patient had previous lower extremity venous surgery: No Patient has previously received the following treatment(s) for lower extremity varicose veins: Reports none Does patient have a history of : not applicable Does patient intend to have future pregnancies: not applicable Has patient had lower extremity venous scan with relux testing: No Support hose used: Yes Problems walking or doing physical activity: Yes How does it affect you: pain affects activity tolerance Do you walk much: Yes Do you stand much: Yes Review of Systems ROS Narrative Jeremías Oneal MD personally performed the services described in this documentation, as scribed by Angelina Rosen RVT, RDMS in my presence and it is both accurate and complete. Angelina Oneal RVT, RDMS, am scribing for, and in the presence of, Dr. Jeremías Silveira and in the presence of the patient. Status of ROS 10 or more systems reviewed and unremark able except as noted in history and below Cardiovascular Reports: edema PFSH [facility] Medical History (Updated 05/02/24 @ 13:04 by Basilio Linn) Phlebitis and thrombophlebitis of superficial vessels of right lower extremity ?I80.01 - Phlebitis and thrombophlebitis of superficial vessels of right lower extremity (ICD-10) Phlebitis and thrombophlebitis of superficial vessels of left lower extremity ?I80.02 - Phlebitis and thrombophlebitis of superficial vessels of left lower extremity (ICD-10) Hernia ?K46.9 - Unspecified abdominal hernia without obstruction or gangrene (ICD- 10) Varicose veins of bilateral lower extremities with pain ?I83.813 - Varicose veins of bilateral lower extremities with pain (ICD-10) Surgical History (Updated 05/02/24 @ 12:56 by Basilio Linn) Status post laser ablation of incompetent vein ?Z98.890 - Other specified postprocedural states (ICD-10) Status post laser ablation of incompetent vein ?Z98.890 - Other specified postprocedural states (ICD-10) H/O hernia repair ?Z98.890 - Other specified postprocedural states (ICD-10) ?Z87.19 - Personal history of other diseases of the digestive system (ICD-10) Family History (Updated 03/19/24 @ 15:36 by Basilio Linn) Other Family history of CHF (congestive heart failure) Family history of diabetes mellitus Family history of hypertension Family history of myocardial infarction Pain due to varicose veins of both lower extremities Social History (Updated 03/19/24 @ 15:35 by Basilio Linn) Within the past year, how often did you have a drink containing alcohol: 2-4 times a month Smoking status: Never smoker Non-prescribed substance use: denies use Meds Home Medications and Allergies Home Medications ?Medication ?Instructions ?Recorded ?Confirmed ?Type No Known Home Medications 03/19/24 03/19/24 History Allergies Allergy/AdvReac Type Severity Reaction Status Date / Time No Known Drug Allergies Allergy Verified 03/19/24 16:21 Exam Narrative Exam Narrative: IJeremías MD personally performed the services described in this documen tation, as scribed by Angelina Rosen RVT, RDMS in my presence and it is both accurate and complete. IAngelina RVT, RDMS, am scribing for, and in the presence of, Dr. Jeremías Silveira and in the presence of the patient. Constitutional Documenting provider has reviewed patient's vital signs: yes Common normals: oriented x3 Lymph Lymphatic: no lymphedema noted Cardio Peripheral pulses: posterior tibial pulses present and dorsalis pedis pulses present Extremity Common normals: normal capillary refill General: calf tenderness and edema Right lower extremity: lower leg Right lower leg: inspection and palpation Left lower extremity: lower leg Left lower leg: inspection and palpation Neuro Common normals: oriented x3 Results Imaging Venous US: Radiologist's impression: The ultrasound demonstrates Heat induced thrombus visualized 1.4cm from the SFJ. The heat induced thrombus extends from groin to distal thigh. Assessment and Plan Assessment and Plan (1) Phlebitis and thrombophlebitis of superficial vessels of right lower extremity: Plan Patient in today for follow up ultrasound of lower extremity following treatment of EVLT of right leg GSV completed on 05/02/24. IJeremías MD personally performed the services described in this documentation, as scribed by Angelina Rosen RVT, RDMS in my presence and it is both accurate and complete. Angelina Oneal RVT, RDMS, am scribing for, and in the presence of, Dr. Jeremías Silveira and in the presence of the patient.
--- NOTE | 2024-05-08 15:30 | W.VEIN ---
Discharge Plan Discharge Disposition: Home, Self-Care Discharge Medications: No Action No Known Home Medications Follow Up Appointments: Patient plans to continue treatment with Dr. Lynch and Dr. Silveira Plan of Treatment: [employer] [employer] Language: Canadian
--- OUTSIDE RECORDS SUMMARY | 2024-05-08 15:30 | XMS_ITS | CCD ---
Author Organization [facility] Care Team Providers Care Senior Accountant Name Role Phone Terese Duff Unavailable DR MARYAM JORDAN V Consulting Unavailable NIKKI, DR MARYAM Grigsby Attending Unavailable NIKKI, DR MARYAM Grigsby Admitting Unavailable NIKKI, DR MARYAM Grigsby Consulting Unavailable NIKKI, DR MARYAM Grigsby Attending Unavailable NIKKI, DR MARYAM Grigsby Admitting Unavailable Danyel, Cheyanne Coon Attending Unavailable Danyel, Cheyanne Coon Admitting Unavailable Jacqueline Owens Primary Care Unavailable MD Jacqueline Owens Primary Care Provider Armandoben, [facility] Cheyanne Coon Emergency Provider Unavailable Primary Care Provider Unavailguilherme coon PACKBRANDON Referring Unavailable YULIANA AGUILAR Attending Unavailable PACK, BRANDON Attending Unavailable PACK, BRANDON Attending Unavailable Unavailable Primary Care Provider UnavailJacqueline Mckinney MD Primary Care Provider CATIE CARRILLO Attending Unavailable CATIE CARRILLO Referring Unavailable AMADA BLEVINS Attending Unavailable CATIE CARRILLO Attending Unavailable CATIE CARRILLO Referring Unavailable Medications Current Medications Medication Drug Class(es) Dates Sig (Normalized) Sig (Original) acetaminophen 500 mg oral capsule (4 sources) Acetaminophen 50 0 mg cap Take 500 mg by mouth as needed. Active Comment on above: Take 500 mg by mouth as needed. [id number] 200 actuat albuterol 0.09 mg/actuat metered dose [...] 2022 12:00am linaclotide 0.29 mg oral capsule (3 sources) Guanylate Cyclase-C Agonist Start: 06-13-2023 take 1 capsule by mouth once daily in the morning linaCLOtide (LINZESS) 290 mcg capsule Take 1 capsule by mouth daily at 6 am. 30 capsule 5 06/13/2023 Active Comment on above: Take 1 capsule by mo [facility] daily at 6 am. pantoprazole 40 mg delayed release oral tablet (3 sources) Proton Pump Inhibitor Start: 08-21-2023 take [...] Comment on above: Take 1 tablet by esvin once daily. Completed/Discontinued Medications Medication Drug Class(es) Dates Sig (Normalized) Sig (Original) fluticasone propionate 0.05 mg/actuat metered dose nasal spray (1 source) Corticosteroid Start: take 1 spray(s) nasal route once daily [...] Start: 10-18-2022 take 1 capsule by mo ut before mealtime omeprazole (PriLOSEC) [address] capsule Indications: Gastroesophageal reflux disease without esophagitis Take 1 capsule (40 mg) by mouth in the morning. Take before meals. 90 capsule 1 10/18/2022 Active Comment on above: Take 1 capsule by mo ut once daily. take 1 capsule by mo ut once daily Problems Active Problems Problem Classification [...] [Allergic rhinitis, unspecified] Onset: 3 10-18-2022 Chronic Other upper respiratory infections (1 source) Viral upper respiratory tract infection; Translations: [Acute upper respiratory infection, unspecified] 05-07-2024 Episodic Spondylosis; intervertebral disc disorders; other back problems [...] Comment: MRI L T knee w/o at [facility]. Orbits if needed. Eval for meniscus tear. XR Knee - left 1 or 2 Viewso n 12-20-2023 Imaging Result: December 19, 2013 x-rays AP weight-bearing bilateral knees and lateral of the left knee demonstrate open joint spaces without collapse. No areas of lgla-by-edgw. No sclerosis. No fractures detected. Neutral alignment. Impression: No acute findings on x-rays of the left knee Trace Levy D.O. [facility] Radiology Study observation (narrative) [facility] XR Knee - left 1 or 2 ViewsO rdered By: Anthony Levy on 12-20-2023 [facility] [employer] Work Phone: SURGICAL PATHOLOGYOrdered By : Tara Wilkinson on 06-13-2023 Case Report Surgical Pathology Report Case: [id number] Authorizing Provider: Anthony Mejia MD Collected: 06/12/2023 09:40 AM Ordering Location: Ambulatory Surgery Received: 06/12/2023 10:31 PM Pathologist: Tara Wilkinson MD Specimens: A) - DUODENUM BIOPSY B) - RECTAL POLYP, x2 [facility] Work Phone: FINAL DIAGNOSIS s0xxyQXhGGBddLThSGLc ZMmndtJbKXVxgSWsD8Yx pitnGPefIX7bNA9ntUea dGRvqLYcYWXtMrUpn8iw m924gDWov6lxLIXCtpvl fGs1cKynH75ue4V4Xzhy J40pbXMnNMZ0KMHkNGVk bMPcBGCyGOW6WNEtqDEi B0fdRWPbIN7dazzuCExw ALqfNFXcoXW1WVVuhCXu K7BvBQEtMPakBKLpvep2 ElPeHk9ibLRnxOdqDBqg YXJkXHBsYWluXGZzMjAg YT7sRRJ6v6HmxzHwAMDx fQ3yy9u3NZDkdsOqUEJ7 m5QxziNaAY06C51bBCC5 vMNaCW9pNFNmH08yXpah NP10ZMQfYYxrm5A3aXJv SXr6CRNiiOvzfu2nuBEy KA9aPf4tOFBvMMGdB3Mi v7BoY6YloSBvTDZtx4Ys j3Kcn9ZdWKFbUZOsuBXt ps5jwRSlXIBcruJRMaPs UmVjdGFsIHBvbHlwIHgg KyimRhvrbNC0EolxIDLz ZDQXpkIzdHKvmGEet0Wy aHlwZXJwbGFzdGljIHBv bHlwLlxwYXJ9 [facility] Work Phone: Gross Description i1tvfAZyZHRzmBGERGQ3 YDUlCA7kxNixmFd1iDyf XTRyjuI9vKMlPRbky9gj POT1w3ukshEHCybjXZNg TB8iNYblJDWvDG6uOkOz XGRlZmYxXHBhcGVydzEy GcIoFCMknWGdgQK0RHDl XE5mjbmvYGvnPRupCWNe osX4MCVfbDLiA7HcNFLp AI6bpbdwHTW1QWKNAiko Ma7mfKIbaNknKtHvXyPu JEZeWHVdPCKux0vcqiYV mdaekUo7eS3AKECdV2Nr ZY8Iy3feUOWdnRLlCEG1 VRpdo6ixXGwlOJP7GVUf BPCbDQWzRH2FNrYyJHW5 BXzcGDR7ZcH6DNn5CPYP MRItICDiFqZ5DREuBVx5 OTkgXFxuaCBcXHQgMSBc UQPcKBfgrgU6t2nuBFVx tLLmXXF7LIadg8fwNUin QJZ4ABZtHiBhURMuKB9O UbMcPYV5QKbwVBU3IeK5 TSt3PXKUXlYwEiWbVVs1 GkRyNcDdRLf4NTg4DLxX HrVqObS1XcSeNrhyTjK4 NDYyNyBcXHQgMiBcXHNz WGQfRVzarNEiXT5rdCry HVHdVG7GXGZwNCmuEHTj KxLfRC0xEHPUKGTOYA5w KtvZHPQVXPc5riRhTKTj onYJYwfnHDXiGF0HUNCo FFlvVAg9upWzYYRgYiWz ZERtY58ji2XTx3RuHC0H LKx0khIkytqjQQQfSXFt uLXHl6JaVCIUWqlglcWn AOEtU1UmmaLzRMbhJXZq eg9msJmzTO8bHFwroWhl WTBnCSBwnVm1qICsRADf xGNoMXVmm5UtiVOvICKw p7W6XXBvm4Q5DHPpU7qo KXibfLpdTcX2mhNhLuIx fUFgRuSbeVUkDoTdM52w TCDeeGXkeShyt3RciLg3 rFMrKAyrWV9zSOKuRSEe INL7XN8INaqeoYowNxZo pKQyMiV9OMJcwMFmJWS9 YW4hmCsuAJKwWWe4FOiv TNGnA5RcI1XlQJhuDpGl XGlkIDUxMDAyIFxcZGIg W9BMETFeKXx7HVZsXsSp MDi0YVl7WT6KRrPbJDC9 CCG0SsIeQdBuWRo3IMzz HH9UCLCqOeX3JQE0NZr6 PPZ3QvQ7YKgyaYGyWKfx o8DlFlDgTPFpMJcnniP1 CCPxeiRcf1IpPUGpZQXq S3clSsGxWQFYCtopdzRc ZHBrQRYZZ2FUAPXVV4rS UFxwYXIgDQpccGFyZCAN ClxwbGFpblxsdHJjaFxm ygTbSJOyqQLCEYG7BZ3i EIVLSyphlBRjXEAnv8Kx MFxlcGljWHNiMzAgDQpc ZnMyMCBSZWNlaXZlZCBp zgAbx3SfLFkffdDzzdFn OQM7BKMcemDkbOvrXIOm CLDylcIlTgK5EM7hjW0i qYDvXPXvy3dlIOKji5U0 TPMij5F3SWToD5awZCei aXjfIjR3scGiAiYrkNSm KfVfzHIyJkTxA82nBYSu pQAikMvjw5VrcAt3cUDr SAlpSF8gVWJdLOVuUVN0 UI5lISAbelBTKgnwYMHf NAe3giHdmlVHCpoxFEKv RMtAXcGBBGEghNI0LVTr FGO4PPD3QGKxDH7muNTz NS7INQZdxhRMMupnETKv IGIrvIXHy0PsGWZVIykg o4EbVTL8DD8cbvN5eI7o HDGhgsKrqn7aTKOzmUWQ vGY9TPmjobOdZ4meztfw PFN2SBXyENQ6X2wtQKSA tlIfZYCShIO6HDygcyNs SF3QWAK7WUp8NLxnOLRa B96vh1EPm4Ldc0eraMrw s2EzoHDfYO03ANRqoWYb AVN8MD2prAoiHGIfDYyo cSSqFLVBNqvpktZcBR2N fQ== [facility] Work Phone: Performing Lab a1lvqBSoEHMkkSQaSzJm GQHyBDNbr6owUOAwnCUe ZzEwMzNcZnRuYmpcdWMx ZWWhSuIox2zrj479aNSa o3hrZILsQtA2iRIyKXTe jDLoH650MCLdTMxtk5ym e5FzTNIhuCClg8H7ELSG vfjqkAs2zGdtM66om2H5 MxsjA4qoQJTaWUAxZ4Lr AF4kHNDxZjl8YIE1EMT4 XLHcAJIhI3DjUL1yMQOb sRQdMOo7f9rprNlyFTYl AWQ5z8viARcpekAfMR1n vs4wmSz9q2rkadSoPYPa LVLjfPZGOQMtG3JnpGlr Ot6scOa2wUslTqhdKRB2 Sbg5GB2kun23kbr0eQnc CMWvxlujZqF9JGwqOCXe zprpCGn4TIdwPLFkhUR2 LBXyfFEcK8XrOZsdDP1x gbg8SIV7CLebJJDcInM0 NDBcaGVhZGVyeTcyMFxm r780QGZ7CvBqSY1jC0Ub a3X9dQ6drVOcQSLfoPKs WpNyCWYtuj9wrBHqEOww s3UnSLL5taH4aRFfqWUb PNBzBG28Uwaai3LnIxww x0NoT90ecKV9ZWxan5zq SC8cHeK5tqGtHIkpf0mt aP6uDcG6TCcgYU2sLT1w RLLhfG7sspueTDFnDtQy pnfjJECqtKogkeRsBf4s fGqnAHE9RWomI7rjvY9o UeZ7FDrhX9qemM7dYQd6 JEnamPD4CZPugG9ePY5l iibhw1weMPsfATrzXXEe ezO1tmWeUZCbcPXlW5Mb wT1lJDQfNS1gqjocl5vw MBQ4NXqsTLBpVOX7SfVx SFRpk2Sdxqj8WeLhz0Ix dTWsBUjlS08dj264AEDx baKvK0rrnTTkskwssSAp rowhMCbvcbX1VEVcYJZb YWluXGYxXGZzMjJcbGFu ZzEwMzNcaGljaFxmMVxk ZtSpUFKpDLqwW5amSaWf RaIxKiXShUWwca3emSoi TXlntJMteJFauCU0lJ5w KLMwapYbhi4mFKAycGHB eDQ9GGfjorTeR5eubgfi NTM0RALvGWB5C9siGUEQ dmUsIENsZXZlbGFuZCBP MPT5WSK6RXLwRGVZQJFh IBU4DBA4CVBkZYWbrCCy XHBhclxwYXJkXHBsYWlu MEAxVKBpTsCqkApykF9n EhVsOxVyMucxXT3hDQJb E6hzkGOpWINcVHQcW0hp BzNudX2isUzqTZitWzCp ZnMyMlxsdHJjaCBMYWJv xtC6v5C5YMhqeVGozcfi MVxmczIyXGxhbmcxMDMz XIpoD5ilOcVaHFIhoKwx LBlkq9TvFNIjSZWhFbPi UWopOQD1h3Y1ZPdbfXCj gpRTCbSKRT1yaCTjsazr EU4GXrkgHDX1 [facility] Work Phone: [facility] Work Phone: ANES POSTPROC EVALon 024 ANES POSTPROC EVAL HNO ID: [id number] Author: YULIANA AGUILAR APRN.DRUM DYEING MACHINE OPERATOR Service: ? Author Type: Nurse Char House Supervisor Type: Anesthesia Postprocedure Evaluation Filed: 06/12/2023 10:09 Note Text: POST ANESTHESIA EVALUATION NOTE : 1985 Procedure Summary Date: 06/12/23 Room / Location: Ambulatory Surgery Anesthesia Start: 927 Anesthesia Stop: 1004 Procedures: EGD DIAGNOSTIC COLONOSCOPY DIAGNOSTIC Diagnosis: Gastroesophageal reflux disease, unspecified whether esophagitis present Rectal bleeding (Established esophageal reflux) Scheduled Providers: Anthony Mejia MD; Jennyfer Faria RN; Margo Szymanski Tech; Yuliana Aguilar APRN.DRUM DYEING MACHINE OPERATOR Responsible Provider: Yuliana Aguilar APRN.DRUM DYEING MACHINE OPERATOR Anesthesia Type: MAC ASA Status: 2 Anesthesia [...] Anesthesia Observations No Documentation SIGNATURE: Yuliana Aguilar APRN.DRUM DYEING MACHINE OPERATOR PATIENT NAME: Rufino Miller DATE: June 12, 2023 TIME: 10:09 AM CSN: [id number] [facility] ANES PRE-OPon 06-12-2023 ANES PRE-OP HNO ID: [id number] Author: YULIANA AGUILAR APRN.DRUM DYEING MACHINE OPERATOR Service: ? Author Type: Nurse Char House Supervisor Type: Anesthesia Preprocedure Evaluation Filed: 06/12/2023 09:26 Note Text: ANESTHESIOLOGY DAY OF SURGERY NOTE : 1985 Procedure Information Date/Time: 06/12/2345 Scheduled providers: Antohny Mejia MD; Jennyfer Faria RN; Margo Szymanski Tech; Yuliana Aguilar APRN.DRUM DYEING MACHINE OPERATOR Procedures: EGD DIAGNOSTIC COLONOSCOPY DIAGNOSTIC Location: Ambulatory [...] and consent discussed: yes. Patient / Responsible Alliance Party agrees to proceed: yes Patient / Surrogate [...] 48 hours of Surgery/Procedure. SIGNATURE: Yuliana Aguilar APRN.DRUM DYEING MACHINE OPERATOR PATIENT NAME: Rufino Miller DATE: June 12, 2023 TIME: 9:25 AM CSN: [id number] [facility] 06-12-2023 Colonoscopy [facility] Gastroenterology Gastrointestinal Endoscopy Patient Name: Rufino Miller Procedure Date: 06/12/2023 9:50 AM Date of : 1985 Admit Type: Outpatient Age: 37 Room: [facility] 3 Gender: Male Note Status: Finalized Attending MD: Anthony Mejia MD, [id number] Procedure: Colonoscopy Indications: Hematochezia, Constipation Providers: Anthony [...] bowel preparation was evaluated using the BBPS (Phoenix Bowel Preparation Scale) with scores of: Right [...] 3-4 months. Procedure Code(s): --- Professional --- 56779, Colonoscopy, flexible; with biopsy, single or multiple Diagnosis Code(s): --- Professional --- K64.1, Second degree hemorrhoids D12.8, Benign neoplasm of rectum K92.1, Melena (includes Hematochezia) K59.00, Constipation, unspecified CPT copyright 2020 [employer]. All rights reserved. The codes documented in this report are preliminary and upon central service tech review may be revised to meet current compliance requirements. Scope In: 9:51:16 AM Scope Out: 10:05:06 AM MD Anthony Ibrahim MD 06/12/2023 10:12:23 AM This report has been signed electronically by Anthony Mejia MD Number of Addenda: 0 Note Initiated On: 06/12/2023 9:50 AM Estimated Blood Loss: Estimated blood loss was minimal. [facility] EGD Study observation Marcie garnett 06-12-2023 [facility] Gastroenterology Gastrointestinal Endoscopy Patient Name: Rufino Miller Procedure Date: 06/12/2023 9:34 AM Date of : 1985 Admit Type: Outpatient Age: 37 Room: [place] [address] Gender: Male Note Status: Finalized Attending MD: Anthony Mejia MD, [id number] Procedure: Upper GI endoscopy Indications: Esophageal reflux, [...] mg daily. Procedure Code(s): --- Professional --- 14011, Esophagogastroduoden oscopy, flexible, transoral; with biopsy, single or multiple Diagnosis Code(s): --- Professional --- K22.89, Other specified disease of esophagus K21.9, Gastro-esophageal reflux disease without esophagitis CPT copyright 2020 [employer]. All rights reserved. The codes documented in this report are preliminary and upon central service tech review may be revised to meet current compliance requirements. Scope In: 9:39:05 AM Scope Out: 9:44:26 AM MD Anthony Ibrahim MD 06/12/2023 9:49:35 AM This report has been signed electronically by Anthony Mejia MD Number of Addenda: 0 Note Initiated On: 06/12/2023 9:34 AM Estimated Blood Loss: Estimated blood loss was minimal. [facility] Radiology Study observation (narrative) [facility] Flexible sigmoidoscopy study on 06-12-2023 [facility] Gastroenterology Gastrointestinal Endoscopy Patient Name: Rufino Miller Procedure Date: 06/12/2023 9:50 AM Date of : 1985 Admit Type: Outpatient Age: 37 Room: [facility] 3 Gender: Male Note Status: Finalized Attending MD: Anthony Mejia MD, [id number] Procedure: Colonoscopy Indications: Hematochezia, Constipation Providers: Anthony [...] bowel preparation was evaluated using the BBPS (P[place]enix Bowel Preparation Scale) with scores of: Right [...] 3-4 months. Procedure Code(s): --- Professional --- 02299, Colonoscopy, flexible; with biopsy, single or multiple Diagnosis Code(s): --- Professional --- K64.1, Second degree hemorrhoids D12.8, Benign neoplasm of rectum K92.1, Melena (includes Hematochezia) K59.00, Constipation, unspecified CPT copyright 2020 [employer]. All rights reserved. The codes documented in this report are preliminary and upon central service tech review may be revised to meet current compliance requirements. Scope In: 9:51:16 AM Scope Out: 10:05:06 AM MD Anthony Ibrahim MD 06/12/2023 10:12:23 AM This report has been signed electronically by Anthony Mejia MD Number of Addenda: 0 Note Initiated On: 06/12/2023 9:50 AM Estimated Blood Loss: Estimated blood loss was minimal. [facility] Radiology Study observation (narrative) [facility] NURSING PROGon 06-12-2023 NURSING PROG HNO ID: [id number] Author: SRUTHI ANDRADE RN Service: ? Author [...] Andrade RN In Department: AMBULATORY SURGERY [facility] NURSING PROG HNO ID: [id number] Author: ROSY QUIROGA RN Service: Gastroenterology Author [...] Quiroga RN In Department: AMBULATORY SURGERY [facility] SURGICAL PATHOLOGYon 024 CASE REPORT [facility] Comment on above: Order Comment: Speci bess Type: TISSUE SPECIMEN Ordering Facility: [facility] Address: [address] [place] [address] Result Comment: Surg ica Pathology Report Case: [id number] Authorizing Provider: Anthony Mejia MD Collected: 06/12/2023 09:40 AM Ordering Location: Ambulatory Surgery Received: 06/12/2023 10:31 PM Pathologist: Tara Wiklinson MD Specimens: A) - DUODENUM BIOPSY B) - RECTAL POLYP, x2 Performed By: #### S #### [facility] CLIA [id number] [address] [place] [address] [address]AGNOS[address] [facility] Comment on above: Order Comment: Hilda kellogg Type: TISSUE SPECIMEN Ordering Facility: [facility] Address: [address] [place] [address] Result Comment: A. D uodenum, biopsy: - Duodenal mucosa with no significant diagnostic alteration. - No evidence of celiac disease or duodenitis. B. Rectal polyp x 2, biopsy: - Fragments of hyperplastic polyp. Performed By: #### S #### [facility] CLIA [id number] [address] [place] [address] OF [place] FINAL PERFORMING LAB Normal [facility] Comment on above: Order Comment: Hilda kellogg Type: TISSUE SPECIMEN Ordering Facility: [facility] Address: [address] [place] [address] Result Comment: Diag nostic interpretation performed at [facility], [address] [place] [address] CLIA# [id number] Supervisor Laboratory Animal Facility: Vikram Enriquez M.D. Performed By: #### S #### [facility] [place] [id number] [address] [place] [address] [place] GROSS DESCRIPTION [facility] Comment on above: Order Comment: Speci men Type: TISSUE SPECIMEN Ordering Facility: [facility] Address: [address] [place] [address] Result Comment: A. D UODENUM BIOPSY Received [...] 2023 1:04 AM [place] [address] Performed By: #### S #### [facility] IA [id number] [address] [place] [address] [place] Upper GI endoscopyon 06-11-2 024 Upper GI endoscopy [facility] Gastroenterology Gastrointestinal Endoscopy Patient Name: Rufino Miller Procedure Date: 06/12/2023 9:34 AM Date of : 1985 Admit Type: Outpatient Age: 37 Room: [place] [address] Gender: Male Note Status: Finalized Attending MD: Anthony Mejia MD, [id number] Procedure: Upper GI endoscopy Indications: Esophageal reflux, [...] mg daily. Procedure Code(s): --- Professional --- 49801, Esophagogastroduoden oscopy, flexible, transoral; with biopsy, single or multiple Diagnosis Code(s): --- Professional --- K22.89, Other specified disease of esophagus K21.9, Gastro-esophageal reflux disease without esophagitis CPT copyright 2020 [employer]. All rights reserved. The codes documented in this report are preliminary and upon central service tech review may be revised to meet current compliance requirements. Scope In: 9:39:05 AM Scope Out: 9:44:26 AM MD Anthony Ibrahim MD 06/12/2023 9:49:35 AM This report has been signed electronically by Anthony Mejia MD Number of Addenda: 0 Note Initiated On: 06/12/2023 9:34 AM Estimated Blood Loss: Estimated blood loss was minimal. [facility] CNPNon 06-01-2023 PAWEL Telephone ([facility]) ERMELINDARUFINO ([id number]) 1985 M Date Time Provider Department 06/01/23 BRANDON TSE [facility] During your visit today, we recorded the following information about you: Brandon Tse APRN.HILARY 06/01/2023 3:00 PM Signed Called patient to [...] If you do not have a responsible local flatbed driver (family member or friend) with you to take you home, your exam cannot be done with sedation and will be cancelled. Please bring a list of all of your current medications, including any Qzyo-nnh-Sdszxpa medications with you. Medications If you take [...] Date: 06/01/2023 (more content not included)... [facility] HISTORY PHYSICALon HISTORY PHYSICAL HNO ID: [id number] Author: BRANDON TSE APRN.BUDGET ANALYST Service: ? Author Type: Nurse Practitioner Type: H&P Filed: 05/29/2023 15:03 Note Text: DISTANCE HEALTH VISIT This Team Access Model visit is a virtual encounter. It required patient-provider interaction for the medical decision making as documented below. REASON FOR VISIT: follow up, GERD. HPI: Rufino Miller is a 37 year old male who [...] melena and hematochezia. Past Clinical Work-Up: [facility]ST [facility] BRANDON TSE APRNPANCHO 03/14/2023 ASSESSMENT/PLAN: Mr. Miller is a 37 year old male with [...] Normal appearing strength and coordination ASSESSMENT/PLAN: Mr. Miller is a 37 year old male with [...] daily I spent more than 30 minutes kads-mf-uipu with the patient and over half the time was devoted to counseling and/or coordination of care. This note was dictated using [employer] speech recognition software and may contain some errors that were a result of the program not accurately transcribing what was dictated. I have communicated my name and active licensure. The patient's identity and physical location were verified at the time of this visit. Either the patient or their legal solar sales representative and assessor has been informed of the risks and benefits of -- and alternat (more content not included)... [facility] HISTORY PHYSICALon HISTORY PHYSICAL HNO ID: [id number] Author: Brandon Tse APRN.BUDGET ANALYST Service: ? Author Type: Nurse Practitioner Type: HANDP Filed: 03/14/2023 3:09 PM Note Text: DISTANCE HEALTH VISIT This Team Access Model visit is a virtual encounter. It required patient-provider interaction for the medical decision making as documented below. REASON FOR VISIT: heartburn HPI: Rufino Miller is a 37 year old male who [...] Normal appearing strength and coordination ASSESSMENT/PLAN: Mr. Miller is a 37 year old male with [...] RELEASE I spent more than 25 minutes motf-vp-zyrz with the patient and over half the time was devoted to counseling and/or coordination of care. This note was dictated using [employer] speech recognition software and may contain some errors that were a result of the program not accurately transcribing what was dictated. I have communicated my name and active licensure. The patient's identity and physical location were verified at the time of this visit. Either the patient or their legal solar sales representative and assessor has been informed of the risks and benefits of -- and alternatives to -- treatment through a remote evaluation and consents to proceed with the evaluation remotely. Brandon Tse APRN.BUDGET ANALYST [facility] XR foot RT min 3V*on 023 XR foot RT min 3V* [facility] [place] [address] XRay Report Signed Patient: Rufino Miller MR#: [id number] : 1985 Acct:[id number] Age/Sex: 37 / M ADM Date: 11/05/22 [...] Impression dictated by: Chele De Paz Jr., D.OSherly11/05/2022 3:52 PM Dictation Location: [facility] Transcribed By: [facility] 11/05/221551 Dictated By: Chele De Paz Jr, DO 11/05/22 155 Signed By: 11/05/22 155 [facility] SARS-CoV-2 (COVID-19) RNA NA A+probe Ql (Resp)on 09-19-2021 SARS-CoV-2 (COVID-19) RNA SHU+probe Ql (Unsp spec) Positive [employer] Other Vital Signs Date Time Vital Sign Value Performing Clinician Facility 06-12-2023 10:31-0500 Diastolic blood pressure 65 mm[Hg] Anthony Mejia MD Work Phone: [facility] 06-12-2023 10:31-0500 Heart rate 70 /min Anthony Mejia MD Work Phone: [facility] 06-12-2023 10:31-0500 Respiratory rate 28 /min Anthony Mejia MD Work Phone: [facility] 06-12-2023 10:31-0500 SaO2% (BldA) [Mass fraction] 95 % Anthony Mejia MD Work Phone: [facility] 06-12-2023 10:31-0500 Systolic blood pressure 121 mm[Hg] Anthony Mejia MD Work Phone: [facility] 06-12-2023 09:09-0500 Body height 190.5 cm Anthony Mejia MD Work Phone: [facility] 06-12-2023 09:09-0500 Body mass index (BMI) [Ratio] 26.87 kg/m2 Anthony Mejia MD Work Phone: [facility] 06-12-2023 09:09-0500 Body weight 97.52 kg Anthony Mejia MD Work Phone: [facility] 11-05-2022 15:07-0400 Body height 190.5 cm MD Jacqueline Owens Work Phone: [facility] 11-05-2022 15:07-0400 Body temperature 98 [degF] MD Jacqueline Owens Work Phone: [facility] 11-05-2022 15:07-0400 Body weight 101.55 kg MD Jacqueline Owens Work Phone: [facility] 11-05-2022 15:07-0400 Diastolic blood pressure 80 mm[Hg] MD Jacqueline Owens Work Phone: [facility] 11-05-2022 15:07-0400 Heart rate 78 /min MD Jacqueline Owens Work Phone: [facility] 11-05-2022 15:07-0400 Respiratory rate 18 /min MD Jacqueline Owens Work Phone: [facility] 11-05-2022 15:07-0400 SaO2% (BldA) [Mass fraction] 98 % MD Jacqueline Owens Work Phone: [facility] 11-05-2022 15:07-0400 Systolic blood pressure 138 mm[Hg] MD Jacqueline Owens Work Phone: [facility] 09-19-2021 11:35-0400 Body height 187.96 cm Terese Sherin Other [employer] Other 09-19-2021 11:35-0400 Body mass index (BMI) [Ratio] 27.6 kg/m2 Terese Sherin Other [employer] Other 09-19-2021 11:35-0400 Body temperature 98.4 [degF] Terese Sherin Other [employer] Other 09-19-2021 11:35-0400 Body weight 97.52 kg Terese Sherin Other [employer] Other 09-19-2021 11:35-0400 Respiratory rate 18 /min Terese Sherin Other [employer] [employer] Other 09-19-2021 11:35-0400 SaO2% (BldA) [Mass fraction] 99 % Terese Sherin Other [employer] Other Encounters Encounter Date Encounter Type Care Provider Facility Start: 05-07-2024 End: 05-07-2024 Telemedicine consultation with patient Mauricio 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 Work Phone: Telemedicine Comment on above: Viral upper respirat ory tract infection with cough (Primary Dx) Start: 02-22-2024 End: 02-22-2024 ambulatory CATIE CARRILLO Not Available Start: 01-31-2024 End: 01-31-2024 Office outpatient visit 10 minutes Catie Carrillo [employer] Work Phone: [facility] Comment on above: Internal derangement of left knee (Primary Dx); Left knee pain, unspecified chronicity Start: 01-31-2024 End: 01-31-2024 ambulatory CATIE CARRILLO Not Available Start: 01-31-2024 End: 01-31-2024 Bamboo flowsheet Catie Carrillo [employer] Work Phone: [facility] Start: 01-31-2024 End: 01-31-2024 Bamboo flowsheet Catie Carrillo [employer] Work Phone: [facility] Start: 12-20-2023 End: 12-20-2023 Bamboo flowsheet Catie Carrillo [employer] Work Phone: [facility] Start: 12-20-2023 End: 12-20-2023 Bamboo flowsheet Catie Carrillo [employer] Work Phone: [facility] Start: 12-20-2023 End: 12-20-2023 Office outpatient visit 25 minutes Catie Carrillo [employer] Work Phone: [facility] Comment on above: Internal derangement of left knee (Primary Dx); Left knee pain, unspecified chronicity Start: 12-20-2023 End: 12-20-2023 ambulatory CATIE CARRILLO Not Available Start: 08-21-2023 Get Medical Advice Brandon Callejas ack 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 Work Phone: Gastroenterology Comment on above: Pantoprazole - Refil l Start: 06-20-2023 Refill Brandon Pack 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 Work Phone: Gastroenterology Comment on above: Refill Request Start: 06-12-2023 End: 06-12-2023 ambulatory BRANDON PACK Facility:[facility] Start: 06-12-2023 End: 06-12-2023 Subsequent hospital visit by physician Anthony Mejia MD Work Phone: Ambulatory Surgery Comment on above: Gastroesophageal ref lux disease, unspecified whether esophagitis present [K21.9] Start: 06-06-2023 ambulatory [facility] Provider Cammy rhoades Comment on above: TWO DAY COLONOSCOPY PREP INSTRUCTIONS Start: 06-06-2023 E-mail encounter fro m caregiver [facility] Provider [facility] Start: 06-05-2023 ambulatory Nurse [facility] Work Phone: Gastroenterology Comment on above: EGD instructions Start: 06-05-2023 E-mail encounter fro m caregiver Nurse [facility] Work Phone: [facility] Start: 06-01-2023 Telephone encounter Brandon Pac k 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 Work Phone: Gastroenterology Start: 05-31-2023 ambulatory Brandon Pack 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 Work Phone: Gastroenterology Comment on above: Still Having Issues Start: 05-29-2023 End: 05-29-2023 ambulatory BRANDON PACK Facility:[facility] Start: 05-29-2023 End: 05-29-2023 ambulatory Brandon Pack 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 Work Phone: Gastroenterology Comment on above: Gastroesophageal ref lux disease, unspecified whether esophagitis present (Primary Dx); Constipation, unspecified constipation type Start: 05-29-2023 End: 05-29-2023 Telemedicine consultation with patient Brandon Pack 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 Work Phone: [facility] Start: 03-31-2023 End: 03-31-2023 ambulatory AMADA BLEVINS Not Available Start: 03-14-2023 End: 03-14-2023 ambulatory BRANDON PACK Facility:[facility] Start: 03-14-2023 End: 03-14-2023 ambulatory Brandon Pack 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 Work Phone: Gastroenterology Comment on above: Gastroesophageal ref lux disease, unspecified whether esophagitis present (Primary Dx) Start: 03-14-2023 End: 03-14-2023 Telemedicine consultation with patient Brandon Pack 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 Work Phone: [facility] Start: 11-05-2022 End: 11-05-2022 Emergency department patient visit Cheyanne Montaño Facility:[facility] Start: 11-05-2022 End: 11-05-2022 Emergency department patient visit MD Jacqueline Owens Work Phone: [facility] Work Phone: Start: 05-24-2022 End: 05-25-[address] MARYAM JORDAN Facility:[facility] Start: 04-27-2022 End: 08-06-[address] MARYAM JORDAN Facility:[facility] Start: 09-19-2021 End: 09-19-2021 ambulatory Terese Duff Other [employer] Other Start: 09-19-2021 Office outpatient vi sit 15 minutes Terese Duff [facility] Procedures Date Procedure Procedure Detail Performing Clinician Start: 12-20-2023 Radiologic examination knee 1/2 views Catie Carrillo NP Work Phone: Start: 06-12-2023 Colonoscopy flx dx w/collj spec when pfrmd Brandon Pack 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 Work Phone: Start: 06-12-2023 Level iv surg pathology gross&microscopic exam Anthony Mejia MD Work Phone: Start: 06-12-2023 Esophagogastroduodenoscopy transoral diagnostic Brandon Pack 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 Work Phone: Start: 11-05-2022 X-ray of right foot MD Jacqueline Owens Work Phone: Plan of Treatment Date Care Activity Detail Author Start: 11-05-2032 Urine microalbumin profile [facility] Start: 01-31-2024 End: 01-31-2024 Patient encounter procedure [facility] Comment on above: Arrived Start: 01-31-2024 End: 01-30-2025 MR Knee - left WO contrast MR knee left wo IV contrast Imaging Routine Internal derangement of left knee Expected: 01/31/2024 (Approximate), Expires: 01/30/2025 [facility] Work Phone: Comment on above: Expected: 01/31/2024 (Approximate), Expires: 01/30/2025 Start: 12-20-2023 End: 12-20-2023 Patient encounter procedure 12/20/2023 11:00 AM EDT Office Visit [facility] [address] [place] [address] Catie Carrillo, FERNANDO [address] [place], [place] [id number] Left knee pain, unspecified chronicity [facility] Comment on above: Left knee pain, unsp ecified chronicity Start: 12-09-2023 Covid-19 Vaccine ( season) Covid-19 Vaccine () [facility] Start: 12-09-2023 Covid-19 Vaccine ( season) Covid-19 Vaccine ( season) [facility] Start: 12-09-2023 Influenza vaccination [facility] Start: 04-09-2023 Behavioral Health Screening Behavioral Health Screening [facility] Start: 04-09-2023 Depression Assessment Depression Ass essment [facility] Start: 12-08-2022 Covid-19 Vaccine ( season) Covid-19 Vaccine ( season) [facility] Start: 12-08-2022 Influenza vaccination Influenza Vacc ine (#1) [facility] Start: 07-16-2022 Lipid 1996 panel - Serum or Plasma Lipid Screening [facility] Start: 07-16-2022 Lipid panel Lipid Screening [facility] Start: 04-09-2022 Depression Assessment Depression Ass essment [facility] Start: 07-16-2005 Anxiety Screening Anxiety Screening [facility] Start: 07-16-2005 Depression Screening Depression Scre ening [facility] Start: 07-16-2005 Hepatitis C Screening Hepatitis C [facility] Start: 07-16-2005 Hepatitis C screening Hepatitis C [facility] Start: 07-16-2005 HIV Screening HIV Screening [facility] Start: 07-16-2005 HIV screening HIV Screening [facility] Start: 1987 Hepatitis B Vaccine (1 of 3 - 3-dose series) Hepatitis B Vaccine (1 of 3 - 3-dose series) [facility] Start: 1987 Medicare Annual Wellness (AWV) Medicare Annual Wellness (AWV) [facility] End: 05-29-2024 EGD DIAGNOSTIC EGD DIAGNOSTIC Endoscopy Routine Gastroesophageal reflux disease, unspecified whether esophagitis present 1 Occurrences starting 05/29/2023 until 05/29/2024 [facility] Work Phone: Comment on above: 1 Occurrences starti ng 05/29/2023 until 05/29/2024 End: 06-01-2024 Flexible sigmoidoscopy study COLONOSCOPY DIAGNOSTIC Endoscopy Routine Rectal bleeding 1 Occurrences starting 06/01/2023 until 06/01/2024 [facility] Work Phone: Comment on above: 1 Occurrences starti ng 06/01/2023 until 06/01/2024 Patient Education Laceration Rep air With Stitches ED Wound Care ED Toe Fracture ED [facility] Work Phone: Patient referral [facility] Work Phone: [facility] Immunizations Immunization Date Immunization Notes Care Provider Fa cili 11-05-2022 tetanus toxoid, redu teja diphtheria toxoid, and acellular pertussis vaccine, adsorbed MD Jacqueline Owens Work Phone: [facility] 02-17-2022 influenza, injectabl e, quadrivalent, preservative free Catie Carrlilo NP Work Phone: [facility] 02-17-2022 influenza virus vaccine, unspecified formulation Brandon Tse APRN.BUDGET ANALYST Work Phone: [facility] 01-29-2020 influenza, injectabl e, quadrivalent, preservative free Catie Carrillo NP Work Phone: [facility] Payers Date Payer Category Payer Private Health Insurance [id number] 2011 Managed Care HMO (unspecified) [id number] 2011 Medicaid [employer] MEDICARE A DVANTAGE [id number] 1987 Unknown [id number] 1987 Unknown [id number] 1987 Unknown [id number] .[id number] 1987 Unknown [id number] 1987 Unknown [id number] .[id number] 1987 Unknown [id number] 1987 Unknown [id number] 1959 Private Health Insurance [id number] 1959 Self-pay Unknown [id number] Unknown [facility] [id number] Social History Date Type Detail Facility Unknown if ever smoked [employer] Other Start: 03-14-2023 End: 05-07-2024 Sex Assigned At [facility] [employer] Other Start: 11-05-2022 End: 06-12-2023 Tobacco smoking status NHIS Never smoked tobacco (finding) [facility] Start: 1985 Sex Assigned At Male F [facility] Tobacco smoking status [facility] Tobacco smoking consumption unknown [facility] Start: 03-14-2023 End: 05-07-2024 History of Social function [facility] National Score (1-100), lower number is lower risk 59 [facility] Start: 1985 Sex Assigned At Not on file [facility] Start: 06-12-2023 Tobacco use and exposure User of smokeless tobacco [facility] Start: 06-12-2023 End: 05-07-2024 Alcohol intake Current drinker of alcohol (finding) [facility] Start: 06-12-2023 Tobacco Comment Has never smoked [facility] Start: 06-12-2023 Alcohol Comment 3-4 drinks twice a w douglas [facility] Start: 11-16-2022 Tobacco use and exposure Smokeless tobacco non-user [facility] Start: 04-09-2023 Alcohol Comment caffeine intak e : 1-2 cups per day ; coffee [facility] Clinical Notes 09-19-2021 to 05-07-2024 Patient InstructionsMauricio Beyer APRN.BUDGET ANALYST - 05/07/2024 5:24 PM Paul Carrillo NP - 01/31/2024 2:45 PM Mayra Carrillo NP - 12/20/2023 11:00 AM Sruthi Rodriguez RN - 06/12/2023 10:09 AM EST Note Date & Type Note Facility 05-07-2024 Instructions Mauricio Beyer APRN.BUDGET ANALYST - 05/07/2024 5:32 PM EST Images from the original note were not included. Please seek further in person evaluation for persistent or worsening symptoms. 1) Please consider starting or continue nasal steroid (Flonase, Nasonex, or similar) as instructed below 2) Would recommend utilizing a saline nasal irrigation like NeilMed sinus rinse or similar, especially before using medicated nasal sprays, to help thin and flush out secretions (if mixing yourself please only use distilled or previously boiled and cooled water per hearing stenographer's instructions). Would recommend bringing the solution up to body temperature also before instilling in nose. Tilt your head slightly away from the nostril you have the bottle in to reduce risk of solution going into your ear. Aim the stream toward the back of your head, not the top of your head. This lets you spit some of the salt water out of your mouth. It will not hurt if you swallow a little. You want to work up to the majority of solution that goes in coming out your mouth, not out the other nostril. 3) Can utilize over the counter pain medication like Tylenol and/or ibuprofen, unless you have been instructed not to take one or both of them because of other medical conditions. Can take 600-800 mg of ibuprofen (Advil or Motrin) every 6 hours up to 3-4 times per day. Would not continue this for more than 7 days and would stop taking if you develop stomach upset. Can also take 1000 mg of Tylenol (acetaminophen) every 6 hours up to 3-4 times per day, but very important to not take more than 1000 mg at one time and to not take more than 4000 mg in a 24 hour period. Instructions to spray medicated nose sprays (please note the best time to use Flonase, Nasonex, Rhinocort or similar is at night before bed). 1. Blow your nose out before spraying 2. Shake it before spraying each time. 3. Keep head in neutral position or looking down slightly. 4. Put about a quarter of the tip of the bottle in the right nostril and aim at the outside corner of the right eye. 5. [place] one spray only. Take a sniff as you are spraying but do not snort. 6. Repeat in the left nostril while pointing towards the outside corner of the left eye 8. Then if you are doing two sprays in each nostril wait 4-5 minutes before spraying the second spray. 9. If it drips out every time such when the nose is very congested. Have the patient sit on the bed. Look down, spray and then lay down on their back on a bed. This will allow the medicine to coat the nose on the way back. Sit up and repeat for the other side. EXPRESS CARE PATIENT INFO I Feel So Sick, Don t I Need Antibiotics? Did you know. . . There s only a 1 in 4000 chance that an antibiotic will help most acute upper respiratory infections. But there s a 1 in 4 chance of diarrhea and a 1 in 50 chance of a skin reaction and a 1 in 1000 chance it ll cause an ER visit due to some side effect. Antibiotics can also lead to more resistant infections that are harder to treat. Bottom line: There s little to no benefit to taking antibiotics for most acute upper respiratory tract infections...and the downsides are real. Viruses cannot be treated by antibiotics. Viruses cause most upper respiratory infections, which include head colds, sore throats, bronchitis, and sinus infections. The common cold and influenza do not respond to antibiotics. Less than 10 percent of acute bronchitis cases are caused by bacteria. Most cases of acute ear infections also resolve without antibiotics. Sore throats (pharyngitis) are usually caused by viruses as well. Antibiotics are not recommended unless you have strep throat and only about 15 to 30 percent of pharyngitis cases in children and up to 10 percent of cases in adults are due to strep throat. Almost all cases of acute bacterial sinusitis resolve without antibiotics. There are a few situations in which antibiotics are needed, however. See your health care provider if you have a decreased immune system due to cancer, or if you are taking steroids, have HIV, or have had an organ transplant, or if your symptoms worsen or last longer than 7 to 10 days. Most often you should use the hjud-tku-fpcjoyb symptomatic treatment/s that your health care provider has recommended. These would include analgesic products such as acetaminophen (Tylenol ), decongestants, antihistamines, salt water gargles, drinking warm tea, and other methods to help treat the symptoms. Also remember that your best defense against getting the flu is to get a flu shot, but this does not, unfortunately, protect you against the many other viruses out in the environment that cause the other kinds of illnesses other than the actual influenza. Adult Sinusitis Patient Education What is Sinusitis? Sinusitis [jefe-dtz-xpyl-tis] is inflammation of the sinuses or swelling of the lining of the sinus cavity or nose. During an infection the sinuses become blocked with fluid causing swelling of the lining of the sinuses. Symptoms: (viral and bacterial infections) Stuffy nose Runny nose Postnasal drip Fever Toothache Headache Tiredness Cough Sore throat Face and head pressure and or pain Common causes: 98% of sinus infections are viral caused by viruses. Risk Factors of Sinusitis Include: Allergies, air pollution, indoor humidity and outdoor temperature changes, andstructural changes in the nose may contribute to sinus pain, pressure and congestion. When to get help? Temperature greater than 100.4 F Symptoms lasting more than 10 days or worsening symptoms greater than 7-10 days. If you do not improve or worsen after a course of antibiotics, you should be re-examined. Diagnosis and Treatment: Your healthcare provider will ask a number of questions about your symptoms and how long they have occurred. If symptoms of sinusitis persist greater than 10 days, it is possible you have a bacterial sinus infection and an antibiotic is prescribed. If it is viral, antibiotics will not help. You may be instructed to take ugsl-vbr-rvvhxkg medications for symptoms. including fever reducers acetaminophen or ibuprofen, nasal saline spray, cough and cold preparations and decongestants as prescribed by the physician, nurse practitioner or physician catalog library assistant. Self-Care and Prevention: Rest Fluids for hydration Good hand washing Humidifier Avoid smoking and exposure to second hand smoke Avoid sick contacts documented in this encounter [facility] 05-07-2024 History of Presen t illness Narrative Telemedicine Evaluation for an Illness MyChart Zoom Video Visit was used for evaluation of this patient. I have communicated my name and active licensure. The patient's identity and physical location were verified at the time of this visit. Either the patient or their legal solar sales representative and assessor has been informed of the risks and benefits of -- and alternatives to -- treatment through a remote evaluation and consents to proceed with the evaluation remotely. SUBJECTIVE Rufino Miller is a 38 year old male who presents with 2 days of symptoms that are stable. Symptoms include: Fever (>=100.4F): Yes or Chills: Yes Cough: Yes Shortness of breath: No or Difficulty breathing: No Fatigue: No Muscle aches: No Headache: No New loss of smell or taste: No Sore throat: Yes Nasal congestion: No or Rhinorrhea: Yes Nausea: No or Vomiting: No Diarrhea: No Some blood tinged sputum/mucus. OTC meds/remedies that patient has tried: NSAIDs. High risk category assessment No high risk factors Exposures: Sick contacts? Yes Family or close contacts with confirmed/probable COVID-19 in last 14 days? No He reports that he has never smoked. He uses smokeless tobacco. OBJECTIVE VIDEO EXAM (if available) GENERAL: well appearing, alert, in no acute distress HEENT: no conjunctival injection, pupils equal, moist mucous membranes, and palpable cervical adenopathy PULMONARY: breathing comfortably on room air , coughing, and no wheezing noted ASSESSMENT/PLAN (J06.9) Viral upper respiratory tract infection with cough (primary encounter diagnosis) Most consistent at this time with uncomplicated viral URI/respiratory infection. He was thinking it could be strep throat given sore throat and what sounds like lymphadenopathy, but his daughter was sick with what sounds like URI symptoms and he has some drainage and a c cough in an adult with no tonsils, so explained by far most likely viral URI. Recommended continued symptomatic treatments and monitoring. Mauricio Beyer APRN.BUDGET ANALYST - Discussed symptom monitoring and supportive care - Red flag symptoms requiring follow up discussed documented in this encounter [facility] 01-31-2024 History of Presen t illness Narrative Images from the original note were not included. Chief Complaint Patient presents with Left Knee - Follow-up HISTORY OF PRESENT ILLNESS: Rufino Miller is an 38 y.o. @ male. 6 [...] develop for requiring urgent evaluation. Catie Carrillo BEVEL FACE STONER AND POLISHER-BUDGET ANALYST documented in this encounter [facility] 12-20-2023 History of Presen t illness Narrative Images from the original note were not included. Chief Complaint Patient presents with Left Knee - Pain HISTORY OF PRESENT ILLNESS: Rufino Miller is an 38 y.o. @ male. Est [...] joint spaces without collapse. No areas of yqes-ln-ssvw. No sclerosis. No fractures detected. Neutral alignment. [...] develop for requiring urgent evaluation. Catie Carrillo BEVEL FACE STONER AND POLISHER-BUDGET ANALYST documented in this encounter [facility] 08-21-2023 Telephone encount er Note EGD/Colonoscopy 06/12/23 Distance Health Visit 05/29/23 [facility] 08-21-2023 Miscellaneous Notes Formattin g of this note might be different from the original. EGD/Colonoscopy 06/12/23 Distance Health Visit 05/29/23 documented in this encounter [facility] 06-20-2023 Miscellaneous Notes Formattin g of this note might be different from the original. Last distance health visit 05/29/23. EGD/Colonoscopy 06/12/23. documented in this encounter [facility] 06-12-2023 Nurse Note POST OP LEARNING RESPONSE INSTRUCTION PROVIDED TO: Patient METHOD OF INSTRUCTION: Written instruction - handouts Verbal instruction PATIENT / FAMILY RESPONSE: Information received as demonstrated by interest and questions FOLLOW-UP PLAN: Patient instructed to call with any further issues SUPPLEMENTAL MATERIAL: None REFERRAL (RECOMMENDATION): None Electronically Signed By: Sruthi Andrade RN In Department: AMBULATORY SURGERY [facility] 06-12-2023 Nurse Note POST OP LEARNING RESPONSE [...] Department: AMBULATORY SURGERY documented in this encounter [facility] 06-12-2023 Attending History and physical note Exam: Abdomen soft, positive bowel sounds, NT, ND. Lungs CTA Cardiac RRR without murmur or gallop with normal S1 and S2. Neuro: Alert and oriented x 3 with independent living advisor 2-12 intact. EGD and colonoscopy with risks of bleeding, perforation, reaction to anesthesia, infection discussed with informed consent obtained. Source Note - Pack, DILIA Donaldson.BUDGET ANALYST - 05/29/2023 2:40 PM EST DISTANCE HEALTH VISIT This Team Access Model visit is a virtual encounter. It required patient-provider interaction for the medical decision making as documented below. REASON FOR VISIT: follow up, GERD. HPI: Rufino Miller is a 37 year old male who [...] and hematochezia. Past Clinical Work-Up: [facility] APRN.CNP 03/14/2023 ASSESSMENT/PLAN: Mr. Miller is a 37 year old male with [...] Normal appearing strength and coordination ASSESSMENT/PLAN: Mr. Miller is a 37 year old male with [...] daily I spent more than 30 minutes pibl-by-gvsl with the patient and over half the time was devoted to counseling and/or coordination of care. This note was dictated using [employer] speech recognition software and may contain some errors that were a result of the program not accurately transcribing what was dictated. I have communicated my name and active licensure. The patient's identity and physical location were verified at the time of this visit. Either the patient or their legal solar sales representative and assessor has been informed of the risks and benefits of -- and alternatives to -- treatment through a remote evaluation and consents to proceed with the evaluation remotely. Brandon Tse APRN.CNP [facility] 06-12-2023 History and physi srinivas note Exam: Abdomen soft, positive bowel sounds, NT, ND. Lungs CTA Cardiac RRR without murmur or gallop with normal S1 and S2. Neuro: Alert and oriented x 3 with independent living advisor 2-12 intact. EGD and colonoscopy with risks of bleeding, perforation, reaction to anesthesia, infection discussed with informed consent obtained. Source Note - Brandon Tse APRN.BUDGET ANALYST - 05/29/2023 2:40 PM EST DISTANCE HEALTH VISIT This Team Access Model visit is a virtual encounter. It required patient-provider interaction for the medical decision making as documented below. REASON FOR VISIT: follow up, GERD. HPI: Rufino Miller is a 37 year old male who [...] melena and hematochezia. Past Clinical Work-Up: [facility] BRANDON TSE APRN.BUDGET ANALYST 03/14/2023 ASSESSMENT/PLAN: Mr. Miller is a 37 year old male with [...] Normal appearing strength and coordination ASSESSMENT/PLAN: Mr. Miller is a 37 year old male with [...] daily I spent more than 30 minutes nurx-tj-hvia with the patient and over half the time was devoted to counseling and/or coordination of care. This note was dictated using [employer] speech recognition software and may contain some errors that were a result of the program not accurately transcribing what was dictated. I have communicated my name and active licensure. The patient's identity and physical location were verified at the time of this visit. Either the patient or their legal solar sales representative and assessor has been informed of the risks and benefits of -- and alternatives to -- treatment through a remote evaluation and consents to proceed with the evaluation remotely. Brandon Tse APRN.HILARY documented in this encounter [facility] 06-12-2023 Nurse Note PRE OP LEARNING ASSESSMENT [...] Rosy Quiroga RN In Department: AMBULATORY SURGERY [facility] 06-08-2023 Miscellaneous Notes Formattin g of this note might be different from the original. I did try to call the patient to review 2 day prep instructions. No answer. I had to leave a message. I did send the 2 day colonoscopy prep instructions via [employer]. Office number provided. Thank you Kaya Myers LPN documented in this encounter [facility] 06-01-2023 Instructions Brandon Tse APRN.CNP - 06/01/2023 2:56 PM EST Images from [...] If you do not have a responsible local flatbed driver (family member or friend) with you to take you home, your exam cannot be done with sedation and will be cancelled. Please bring a list of all of your current medications, including any Kmrs-pxn-Dgkysov medications with you. Medications If you take [...] your exam. 03/2019 documented in this encounter [facility] 06-01-2023 Miscellaneous Notes Formattin g of this note might be different from the original. Called patient to discuss [employer] message. Left message to call back. Brandon Tse APRN.CNP documented in this encounter [facility] 06-01-2023 Miscellaneous Notes Formattin g of this [...] on toilet paper. documented in this encounter [facility] 05-29-2023 Instructions Brandon Tse APRN.BUDGET ANALYST - 05/29/2023 2:48 PM EST Thank you for seeing me in clinic today. As we discussed, my recommendations are as follows: 1.MiraLAX 1 capful daily 2.EGD If you have any questions about the above treatment plan, please do not hesitate to call the office or send me a [employer] message. Please try to adhere to the [...] safe by your primary care provider or arson and bomb investigator. SMOKERS: Stop smoking PPI users: Take your [...] irritate the stomach. documented in this encounter [facility] 05-29-2023 History and physi srinivas note DISTANCE HEALTH VISIT This Team Access Model visit is a virtual encounter. It required patient-provider interaction for the medical decision making as documented below. REASON FOR VISIT: follow up, GERD. HPI: Rufino Miller is a 37 year old male who [...] melena and hematochezia. Past Clinical Work-Up: [facility] TSE APRN.CNP 03/14/2023 ASSESSMENT/PLAN: Mr. Miller is a 37 year old male with [...] Normal appearing strength and coordination ASSESSMENT/PLAN: Mr. Miller is a 37 year old male with [...] daily I spent more than 30 minutes woyx-yd-turb with the patient and over half the time was devoted to counseling and/or coordination of care. This note was dictated using [employer] speech recognition software and may contain some errors that were a result of the program not accurately transcribing what was dictated. I have communicated my name and active licensure. The patient's identity and physical location were verified at the time of this visit. Either the patient or their legal solar sales representative and assessor has been informed of the risks and benefits of -- and alternatives to -- treatment through a remote evaluation and consents to proceed with the evaluation remotely. Brandon Tse APRN.CNP documented in this encounter [facility] 03-14-2023 Instructions Brandon Tse APRN.CNP - 03/14/2023 [...] safe by your primary care provider or arson and bomb investigator. SMOKERS: Stop smoking PPI users: Take your [...] irritate the stomach. documented in this encounter [facility] 03-14-2023 History and physi srinivas note DISTANCE HEALTH VISIT This Team Access Model visit is a virtual encounter. It required patient-provider interaction for the medical decision making as documented below. REASON FOR VISIT: heartburn HPI: Rufino Miller is a 37 year old male who [...] Normal appearing strength and coordination ASSESSMENT/PLAN: Mr. Miller is a 37 year old male with [...] RELEASE I spent more than 25 minutes ypcv-dl-rdib with the patient and over half the time was devoted to counseling and/or coordination of care. This note was dictated using [employer] speech recognition software and may contain some errors that were a result of the program not accurately transcribing what was dictated. I have communicated my name and active licensure. The patient's identity and physical location were verified at the time of this visit. Either the patient or their legal solar sales representative and assessor has been informed of the risks and benefits of -- and alternatives to -- treatment through a remote evaluation and consents to proceed with the evaluation remotely. Brandon Tse APRN.CNP documented in this encounter [facility] 09-19-2021 Evaluation note Encounter Date Diagnosis Assessment [...] care provider if no improvement of symptoms. [employer] Other Evaluation noteNo assessment information available [facility] Work Phone: [employer] note* Diagnosis Gastroesophageal reflux disease, unspecified whether esophagitis present- Primary [facility] Diagnosis Gastroesophageal reflux disease, unspecified whether esophagitis present- Primary Constipation, unspecified constipation type [facility] Diagnosis Rectal bleeding- Primary Hemorrhage of rectum and anus [facility] Diagnosis Diarrhea, unspecified type- Primary Rectal bleeding Hemorrhage of rectum and anus [facility] Diagnosis Gastroesophageal reflux disease, unspecified whether esophagitis present [facility] Diagnosis Gastroesophageal reflux disease, unspecified whether esophagitis present Rectal bleeding Hemorrhage of rectum and anus [facility] Internal derangement of left knee- Primary Left knee pain, unspecified chronicity documented in this encounter [facility]* Diagnosis Internal derangement of left knee- Primary Left knee pain, unspecified chronicity documented in this encounter [facility]* Diagnosis Viral upper respiratory tract infection with cough- Primary Acute upper respiratory infections of unspecified site documented in this encounter [facility] general Narrative - Reported* Type Description Date Surgical History HERNIA REPAIR [employer] Other Hospital Discharge instructions Additional Instructions Take [...] care I gave you numbers close to Jose Return to an ER for redness swelling fever chills purulent drainage or any other [facility] Work Phone: [facility] for referral (narrative)* Outpatient Procedure (Routine) - Authorized Specialty Diagnoses / Procedures Referred By Contac t Referred To Contact [facility] Diagnoses Gastroesophageal reflux disease, unspecified whether esophagitis present Procedures EGD DIAGNOSTIC ESOPHAGOGASTRODUODENOSC OPY TRANSORAL DIAGNOSTIC Brandon Tse APRN.CNP [address] [place] [address] [address] Referral ID Status Reason Start Date Expiration Date Visits Requested Visits Authorized [id number] Authorized Auto-Generat ed Referral 05/29/2023 05/29/2024 1 1 [facility] for referral (narrative)* Outpatient Procedure (Routine) - Authorized Specialty Diagnoses / Procedures Referred By Contsunita t Referred To Contact [facility] Diagnoses Rectal bleeding Procedures COLONOSCOPY DIAGNOSTIC COLONOSCOPY FLX DX W/COLLJ SPEC WHEN PFRMBrandon Mauricio APRN.CNP [address] [place] [address] [facility] [address] [place] [id number] Referral ID Status Reason Start Date Expiration Date Visits Requested Visits Authorized [id number] Authorized Auto-Generat ed Referral 06/01/2023 06/01/2024 1 1 [facility] for referral (narrative)* Outpatient Procedure (Routine) - Closed Specialty Diagnoses / Procedures Referred By Contac t Referred To Contact [facility] Diagnoses Rectal bleeding Procedures COLONOSCOPY DIAGNOSTIC COLONOSCOPY FLX DX W/COLLJ SPEC WHEN YONISRMBrandon Mauricio APRN.CNP [address] [place] [address] [facility] [address] [place] [address] Referral ID Status Reason Start Date Expiration Date V isits Requested Visits Authorized [id number] Closed Auto-Generate d Referral 06/01/2023 06/01/2024 1 1 * Outpatient Procedure (Routine) - Closed Specialty Diagnoses / Procedures Referred By Contac t Referred To Contact [facility] Diagnoses Gastroesophageal reflux disease, unspecified whether esophagitis present Procedures EGD DIAGNOSTIC ESOPHAGOGASTRODUODENOSC OPY TRANSORAL DIAGNOSTIC Brandon Tse APRN.CNP [address] [place] [address] [address] Referral ID Status Reason Start Date Expiration Date V isits Requested Visits Authorized [id number] Closed Auto-Generate d Referral 05/29/2023 05/29/2024 1 1 [facility] Outpatient Procedure (Routine) - Closed Specialty Diagnoses / Procedures Referred By Contac t Referred To Contact [facility] Diagnoses Rectal bleeding Procedures COLONOSCOPY DIAGNOSTIC COLONOSCOPY FLX DX W/COLLJ SPEC WHEN PFRMD Brandon Tse APRN.BUDGET ANALYST [address] [place] [address] [address] Referral ID Status Reason Start Date Expiration Date V isits Requested Visits Authorized [id number] Closed Auto-Generate d Referral 06/01/2023 06/01/2024 1 1 [facility] Summary Purpose Family History No Family History [...] Request Reason Comments Follow-up Reason Comments Pain Reason Comments Sore Throat (unrecognized sect ion and content) No Status Records FoundNo Status Records FoundNo Status Records FoundNo Status Records Found INFORMATION SOURCE (unrecogn ized section and content) DATE CREATED AUTHOR 08/05/2022 [facility] DATE CREATED AUTHOR AUTHOR'S ORGANIZ ATION 11/05/2022 [facility] DATE CREATED AUTHOR AUTHOR'S ORGANIZ ATION 06/14/[address] [facility] DATE CREATED AUTHOR AUTHOR'S ORGANIZ ATION 02/27/2024 [facility] [employer] Care Teams (unrecognized sec tion and content) Team Status: Active Member Role Status Dates Jacqueline Owens MD Primary Care Provider Active Team Status: Inactive Member Role Status Dates Jacqueline Owens MD Primary Care Provider Active MAYA MontielP- Emergency Provider Active Senior Accountant Relationship Specialty Start Date End Date Jacqueline Owens MD [address] [facility] [place] [address] PCP - General Family Medicine 11/07/22 Senior Accountant Relationship Specialty Start Date End Date Jacqueline Owens MD [address] [facility] [place] [address] PCP - General Family Medicine 11/07/22 Senior Accountant Relationship Specialty Start Date End Date Jacqueline Owens MD [address] [facility] [place] [address] PCP - General Family Medicine 11/07/22 Senior Accountant Relationship Specialty Start Date End Date Jacqueline Owens MD [address] [facility] [place] [address] PCP - General Family Medicine 11/07/22 Goals [...] or prosecute any alcohol or drug abuse patient.[facility] the event this information is protected by the Federal Confidentiality of Alcohol and Drug Abuse Patient Records regulations: The Federal rules restrict any use of the information to criminally investigate or prosecute any alcohol or drug abuse patient.[facility] the event this information is protected by the Federal Confidentiality of Alcohol and Drug Abuse Patient Records regulations: The Federal rules restrict any use of the information to criminally investigate or prosecute any alcohol or drug abuse patient.[facility] the event this information is protected by the Federal Confidentiality of Alcohol and Drug Abuse Patient Records regulations: The Federal rules restrict any use of the information to criminally investigate or prosecute any alcohol or drug abuse patient.[facility] the event this information is protected by the Federal Confidentiality of Alcohol and Drug Abuse Patient Records regulations: The Federal rules restrict any use of the information to criminally investigate or prosecute any alcohol or drug abuse patient.[facility] the event this information is protected by the Federal Confidentiality of Alcohol and Drug Abuse Patient Records regulations: The Federal rules restrict any use of the information to criminally investigate or prosecute any alcohol or drug abuse patient.[facility] the event this information is protected by the Federal Confidentiality of Alcohol and Drug Abuse Patient Records regulations: The Federal rules restrict any use of the information to criminally investigate or prosecute any alcohol or drug abuse patient.[facility] the event this information is protected by the Federal Confidentiality of Alcohol and Drug Abuse Patient Records regulations: The Federal rules restrict any use of the information to criminally investigate or prosecute any alcohol or drug abuse patient.[facility] the event this information is protected by the Federal Confidentiality of Alcohol and Drug Abuse Patient Records regulations: The Federal rules restrict any use of the information to criminally investigate or prosecute any alcohol or drug abuse patient.[facility] FOR RECORDS PERTAINING TO PATIENTS WHO ARE [...] BE BASED ON THE PRIMARY CLINICAL RECORDS. [facility] [employer] [facility]. provides no warranty or guarantee of the accuracy or completeness of information in this document.
== END 2024-05-08 15:26 | disposition home or self-care (01) ==
PROVIDERS: PCP Radiology Diagnostic Radiology; Visit Provider Radiology Diagnostic Radiology
DX: I80.01 Phlebitis and thrombophlebitis of superficial vessels of right lower extremity (principal)
CPT/HCPCS: 93971; G0463

== ENCOUNTER 2024-11-17 07:00 | Emergency (ER) | payer OTHER, SELFPAY ==
[2024-11-17 07:05] VITALS: BP 166/93; PULSE 73; TEMP 36.4; O2SAT 99; BMI 26.9
--- OUTSIDE RECORDS SUMMARY | 2024-11-17 07:17 | XMS_ITS | CCD ---
Author Organization [facility] Care Team Providers Care Range Scientist Name Role Phone Terese Duff Unavailable NIKKI, DR MARYAM Grigsby Consulting Unavailable NIKKI, DR MARYAM Grigsby Attending Unavailable NIKKI, DR MARYAM Grigsby Admitting Unavailable WEST, DR MARYAM Grigsby Consulting Unavailable WEST, DR MARYAM Grigsby Attending Unavailable WEST, DR MARYAM Grigsby Admitting Unavailable BullCheyanne dorman Attending Unavailable Danyel, Cheyanne Powell Admitting Unavailable Jacqueline Owens Primary Care Unavailable MD Jacqueline Owens Primary Care Provider [phone] [place], [facility] Cheyanne E Emergency Provider Unavailable Primary Care Provider Unavailguilherme e Unavailable Primary Care Provider UnavailJacqueline Mckinney MD Primary Care Provider CATIE CARRILLO Attending Unavailable CATIE CARRILLO Referring Unavailable AMADA BLEVINS Attending Unavailable CATIE CARRILLO Attending Unavailable CATIE CARRILLO Referring Unavailable BRANDON TSE Attending Unavailable YULIANA AGUILAR Attending Unavailable BRANDON TSE Referring Unavailable Maryam Jordan V. Primary Care Unavailable Maryam Jordan V. Attending Unavailable Maryam Jordan V. Admitting Unavailable Maryam Jordan V. Attending Unavailable Maryam Jordan V. Primary Care Unavailable Maryam Jordan V. Admitting Unavailable Maryam Jordan V. Primary Care Unavailable Maryam Jordan V. Attending Unavailable Maryam Jordan V. Admitting Unavailable Maryam Jordan V. Attending Unavailable Maryam Jordan V. Admitting Unavailable Maryam Jordan V. Primary Care Unavailable Maryam Jordan V. Primary Care Unavailable Maryam Jordan V. Attending Unavailable Maryam Jordan V. Admitting Unavailable Maryam Jordan V. Primary Care Unavailable Maryam Jordan V. Attending Unavailable Maryam Jordan V. Admitting Unavailable Maryam Jordan V. Attending Unavailable Maryam Jordan V. Admitting Unavailable Maryam Jordan V. Primary Care Unavailable Medications Current Medications Medication Drug Class(es) Dates Sig (Normalized) Sig (Original) acetaminophen 500 mg oral capsule (4 sources) Acetaminophen 50 0 mg cap Take 500 mg by mouth as needed. Active Comment on above: Take 500 mg by mouth as needed. [id number] 200 actuat albuterol 0.09 mg/actuat metered dose [...] Comment on above: Take 1 capsule by [facility] daily at 6 am. pantoprazole 40 mg [...] Comment on above: Take 1 tablet by [facility] once daily. Completed/Discontinued Medications Medication Drug Class(es) Dates Sig (Normalized) Sig (Original) fluticasone propionate 0.05 mg/actuat metered dose nasal spray (1 source) Corticosteroid Start: 1 take 1 spray(s) nasal route once [...] Start: 10-18-2022 take 1 capsule by mo [facility] before mealtime omeprazole (PriLOSEC) [address] capsule Indications: Gastroesophageal reflux disease without esophagitis Take 1 capsule (40 mg) by mouth in the morning. Take before meals. 90 capsule 1 10/18/2022 Active Comment on above: Take 1 capsule by mo ut once daily. take 1 capsule by mo [facility] once daily Problems Active Problems Problem Classification [...] [Acute upper respiratory infection, unspecified] 05-07-2024 Episodic Phlebitis; thrombophlebitis and thromboembolism (2 sources) Phlebitis and thrombophlebitis of superficial vessels of left lower extremity; Translations: [Phlebitis and thrombophlebitis of superficial vessels of lower extremities, bilateral] Onset: Episodic Spondylosis; intervertebral disc disorders; other back [...] Onset: 3 Varicose veins of lower extremity (5 sources) Varicose veins of bilateral lower extremities [...] Test Name Value Interpretation Reference Range Facility Coding Summaryon 09-16-2024 Coding Summary HTMLBase 64 IddpqbvoOIe4iLp+PGhl YWQ+NU1RKJBlT09ypPIr aD1iC5TMLJnWLzsjLRIU TCsSEgTgigRfZX0rnVJi ZXJu IC8+JQ8nAXQtPjrdfXPh y4Q6oPM5O80ffz2iHMve mPX6LMDyWiGdakzlm8kj hRo8HSsyDghhGnEl IMSlhJ42NGI9xV79Rj67 yQCweEKcg2ajsJh8RsFa PDPqYRU6qMwrDHvqy6Tk FFXhY20nwBBsq5H8 IGNvbGxhcHNlOyBlbXB0 nE6nYYlzgsena9fukzay Ozc1kh42yAVfd2D8kPQ6 G7MmpaR2BWEnnUAu FzzguCDFgB0tccvkg0kc ldkeWvCaHUSrWKk1HRa2 CNRuxPweVhSeVQ05WDC8 SXDckwTkQ2TrTNKh pIryBfI3q9N4Uo3MY4BW AdxqI5RVCKOIEUefpCQ+ VI62iz39I9EyXxzkFyd1 HJFfCAG3rJF7jS8u LIGsZEkod6V6qKS7I4Pk nsBkah7hu3onQQCrCLzk H64rkBLcf7Z8MNPrlFS1 VPMelOjlJrRauA51 Oyc+BYXbtHdsm4AjOrai z4flv2ownGt0DgpjVUIy hfSlkKczAMR8x0RnSb0q SVVfaPE6lDB1xA1p PgCkEkK9QUvyZ368QmXu aNBqFeyuX91gL8HizUD+ FAXjHky6FWBpyBkjXY3h H8AqWULjfpbjdFMy hHmaQR6tYUUiyqmzUESz nO9cJILwB2r7VnUuAwK2 ZKytK3GhGYGlulezPl90 gB4wMsLvAwF9YJbc Y5MeskO1SIAmxWKeVLju MGE6C74ug5I2EPHeZFXs VOJ7wJL8mP0leOhupgip bGVmdDsgdmVydGlj GXnyRNttK392MYZsvXph PkNvZGluZyBEYXRlOiAg MDYvMTAvMjAyNTwvdGQ+ AACvHCG3pZdpPXMg xOWsVSeaCo2rcFxhwMuz UM4lCMEjdcciWZVeuA1a VEHqpBWutZsuTH9cKFFy rvexn659DvMqSVM9 OZSkuXYrN7SljE5zDxZa RHJbOAOwO8BdyHUeRIxz L573URwkLnB7YCBnvnIg D5YuAXVxuPawWfZ3 a5W3Hx3Lj6QmgydnX0Rl bGQqBdYqIckzYPb5M0Ie PjwvdHI+OF04ATYmMQ09 XMe1OWZ0vXkuFEjk LOMiV8AxhF7eOkNfCMHv ZGRkOyc+PHRhYmxlIHdp ZHRoPScxMDAlJyBzdHls GC2jNv5mQARqXYXj xHouuLKgZnUma7olACJn PCwnKC5wwPrfP3RuyMR6 QBUxv1q5Zv38A67dX4Up dXA+CGOsuCX5jJA8 mT5mXfVvHwR3YDsaE744 LvPchOTvTzvni1iny3qx kEd4PxB6UFPdawTbsRnm HIS2k2DbUb73N74q IHdpZHRoPSIxNSUiIHZh fJvdlt4wsZ1nUs5+PGNv cVJ2mDU6yL0lCgFbJrY0 NSimX172WeTiuSAq Gnyuz8qdu9hpuHj7VeGv ENKjtkVrrPyoVZZ8i2Jm Wo48S0TskHrfr3GbUrx4 rh96gKRyd3C2zRL9 D7IrFIQbqnmwrDEjoQtv OV9wZSHzsonrGCNybV6o IWAwK9g8DtUlPyE6RPkp I9WkucR1ZVReyZLl TPBrzYIFlZ9knynau5oe yqivYsLePADeAPy3MQq7 QWZpyPmyWnUtWKA7CsP9 KJB9oDIroN9zmAdh vwreeO9vSqr+HEQ3hVBq nFXXYD5iBlbqzXO+PHRk YVP7hBddUIctIIEqaN1j XFYrQ1x3XbCvYsJ5 AHqxF3OgszD4CDYulDHw XBVviTSOwZ6wcrhug7ca bajfMtShKDYqAWn4EHs5 LWFsaWduOiBsZWZ0 CyD1IDD0dSQlkI9cbHfv vvksoC7cIqr+QmlydGgg LKC3QWi2X0MlSnu3BLDv oYgmYU0iwUPzVFzs Qn3lePwgoNtqWW5iBRXt oiqzf695GaBdm2yrUQEf xFJmEYwbKDK1M10ov7C6 SLYtWFDfHEA5nDD0 rT7ggCrmhuhdiSVbkKgu odBiwLmuXKqiCZapZ366 HCRtwAvmUoNcBVq9Z5Ku Ecg3KVAtfQeoFJ0c lNCwEKvmBz2evSsptNtk JL7tSVXezigpd928BmLw h9vrNWBeiYKbBEdwQGV5 D38bt6A2RDHwUGTk MCA4wTI1bA5uxJalbbak bGVmdDsgdmVydGljYWwt IVmrA154JTZmpXgoKmUl fZx5U8GzGnu8GZFr rElnBZ5qhDHrNRqnPe4l lLdakOpdTU7iGNWyuidk f608XkKwi7umLPQzhEOr KBtxSBC7C44eb6L3 RJFeFTNqVJF9tKQ7qD8f bGlnbjogbGVmdDsgdmVy dSiwJVjmSWrmW819PRIm cDsnPlBhdGllbnQg RYrrZMk8Q5BwRavqwCG+ JW90VHPvAE39dEWkqPXl d0ojyUr1MuYdILViGWY0 qFopPRgnz3BgSCJm Q84dvZUmg8O0HXHtyByk xQTsTuHtjLN6bW5bKNuo sutce6xvopijIhfgy3td iy68tS94H36tERou ZHRoPSIzMCUiIHZhbGln hp0swK1yFu4+PGNvbCB3 pHT8bG0lWIAqIcL7WYzy N153HtTdkEQwRhlv m2gxx6viaEv1UtO7BZBb odCwvWrxUKO4r9OzXw11 H80wPIftGZVwWQJzTQLt ZNFtaQcbps6xeO8u Ii8+VGRuaSF3bQS9gT9o RnIcVpO5MPcdV890LkEf dAEyVtifU60nY1KtaGE+ WOFmQeo5ZHIgsInj JB8hoPKkDAjaJg2dYTC3 MfHgHjErMUcfS8EdZRIx edkzjgmzsOQ7SIWiWMNa jC98Ll2fvUwrSSTt uRLGdH3gaalrc9wcttfx GoLuEOVtFFl3CVc3CVNw dGzaReFwTJW0DlA1GUF2 zWJetM2hiAsdyfgw wL0yQ8NdSOYrnpjqVb24 fK5sTvUqItZ0QGdoUmc+ A6IHD6IVAQNAXMYLBIAZ QjwvdGQ+PHRkIHN0 dMtiLUcbZXAvbV9iJQEm I5a2RfFmLxL6MCsfU1Lq SKCljrikRx82jT1dZbVo ZbX2CRujG8JvkeO6 ZYCapLWqGXotALD9Z40q q5P4EJFzACBoYZA3hBG1 jQ6nmJlvveuziSRgaOle dmVydGljYWwtYWxp C820QQGxdEicDwS7DrV4 SrN3ELy0Z0GzBbg2SUBl bJgzZI1riWGcJIsfEs0d qWtdfDxiYU1iNXAy bbccQRTqcO9hWBXnhNXw wZknWJ7bFWGyclenz378 EyImZWA1YQVebNIhX1Hy uX6lZyCcGOUdREQc S2TytJNsCBekL894MQdf YpV2EFTgmjHkS8DfUTAj dRemZiC5t4E7Oo5wWuHO ZWFyczwvdGQ+PHRk VVF3bAqrNUtmPTJcpU5w PMSuS1r5AuItVwY5ZVwo D8BvXCZsaniuUk35wA7q NuMwCfH4ZIhrT8Jg exN6AQSrqJThTVzxPCX3 B06cy7Z8KUEyOZWqMIM7 kTO4uP6mpXnkdiwtwYLh dDsgdmVydGljYWwt PSxqY345QJMnyGjhWd5Z DYX8D2TzNjr0DEWrvGpq YY0boIDdQQzdUw3qlRnu zNraET3wLYRsxdsw CVXtsN3eWGYlhNJodIiq QK4cFUKjudhxm716FfUv SHH1BRXgvMZdB4FpdA7o EhLnWPIlKDSwV5Ns dPYmQLrlD277QTssBmO9 RUDmgpNxC5BlLZMerXat OyR7i5Y9Ju2SLYfwgGP+ TA40oy91O8OxQlmk Zho4VEPvBYX9nRP5uK9i WAWaUQdpf3A2aKE0Y2Ja iiDimq6vj2ixJXCmZRya G97ulCQrc0A4YCXj oDP3UWMfsMuyEiUtfJ34 Oyc+QEDptIigy1FjYwim d2nqj1nbjLs2SeTnZLXv jvQvuOibECO2m1Wj Oj65H89lTJmsXNLxFVQe PBOcUINtxVwtrg7okA9s Ii8+VOGqqPZ1sHA2wX4w YtVoEtX9ODtiF870 PuDitTDaSfpci2kwi3jn xSz5KfQhHLSrkaQjiIdl BLI9w8HcNk13Q2TvjGbp e4DsWsd7qr21cZEo u1I1dJP2D3StEERrqebt uBCdeWiuXW0kMRKnxjsp BQFltV5sRIKzE6b2ZsNh BzK6XDsoD9FyfeH1 HRGyzOKgYQOnoILIkY4n zwqxn7ihjkvhYgQsQHIj ZXl1SDv7IFPyuDhsWwGu LRT9ZcF0THE2vVVs jC2nePugbevzkJ4eZsa+ GUm0t3evcRDjKD4ebMC1 LU01JF26mYTzs0M9cOQ6 S9LpMGMwyhvrtrxl zWQ2QVVhDSRkbA93Dl9v zBzmEq0xAGCiFZJ2OFFm aRSkN6AbvJ6mItRmDOEm OVUyQ1RdiTGzPRxn Z018OQfpZjK9UUAbkgOd W1BjBTKndNjnZgK1m5A7 Ox9KGY07MI53AM21bHRn u3D0kXO5F0XtYBOg egpwyadlfGV3FOFqCUOe dM53Ov7arXmaGp9gKGLt QVV8XPGabTRaS9PmmX1y UdVlQHZsUDSiZ6Jl cFXpNRgeL801JGqeJdE1 LTDxlpYvJ7LtUFMhfKoj GsZ6s0O0Nj6ZHy71AJ78 YU30hTNeh8D5pEC7 E9BnWRBjqpnoopzacXY2 MSKnNMGwwZ47Or4jfFyp Dk8aIFEuPWQ6IKOtcQWz W0BgbS4lLxTnYCRz RJEoH3IzaZKpPKxcE958 OJmaRyZ5PIJquxJfI2Gd PVNybBvtRbI3f9X6Hy6S YHmqucm5V1ToMyil dHI+MP78BDQoKH97fIAf iJOkd4xblDc1HnGpRFCx RPN4bNnpPZrrm4QkTCXi C11mlBEkf2F1OJZz bGx (more content not included)... [facility] Coding Summaryon 08-26-2024 Coding Summary HTMLBase 64 XzqsedlfYPb4cLv+PGhl YWQ+BY0KXVIwB80pmKNl aU5uS4ZMXBpGZclqDFLR YXmIPlKkxqApNQ8khJMo ZXJu IC8+DH0wTJMpPhjjfAPe e7O2sSU6V70ehl9qJTpx nBX9YIDtOaSkmlllc9zf gGn2OCmhMnjwZxEu ROMjuY48PYH0yJ26Ue41 cJRspTOdx6fkeFe1EdQf ANOfQLX8sYahYZipe3Sh IOKwF44kvPYyv5J9 IGNvbGxhcHNlOyBlbXB0 eA0lCFxcrscks9vgysng Byh8lm79pORih0F5yQW0 Z3QaqhC4MJJstPOj PjcooOLMcY1svdvqc9px azrwCgNgEOYsTWb5EXk4 LQQzgHndKxObUW57YDU5 YNXrgnHgC9DeLVSy oKuqBgE8i4E4Fb1NO4ZV PwhgQ0CUQMCWJScwsXF+ DM53gz60A2AlYxurGzf5 CVPfZLZ2cMP3zS4x VNIpCZtfl6H8wUG1Q2Fn lyXurp3gu3ruLXXpTRir Z26pkJAbz7M5OMPtbLU9 EKGpsXbqRcAaqI73 Oyc+YMOkzLdrd5HaZosd m8uah5sjfOg3IpiuWKTe ubUovZfmWHV4o6ZzUu5p FVWmtXY1dRX0mD4n XeAmGjQ2FPrrY600FmAb jANwIlmsZ95fC7CwwAW+ ZBGdNlf6YWJofUriVQ7p Y3KvCFWuiexydPXr bDmuHD4xAHEqgirjIHOg lX3dSTKdY6x2YnWyPlB9 NGwpJ9RwBODmembcQl50 sH4yJdLlRsF2SXdc X8ItqrI0SHPzuZZfFAem QDN1T23bj2C8FCXjBGEn NYN4yDO2pX4bqUkwkzav bGVmdDsgdmVydGlj ZIrfUXdjD769SVPyiRgf PkNvZGluZyBEYXRlOiAg MDUvMjAvMjAyNTwvdGQ+ DLSkISI9xDjaVRBc xYHcMVyvOb8qtZaegSpq OO8oGXWghiseQQHqzB1x EKQecHYqgKjbGZ7fQOVl odxpv207GpUvWMF2 YCMgoTXbL2VkxQ0qIsQs EGIxEUJfE9FxdPEuDFuu N294EEqhBfG6QBKkvvSv C6SiDFOmyZcxBaT6 x0W1Oh8Pr4UdkhrpI3Rs wIRyJdRgXcdcHMw0Y5Tl PjwvdHI+UE88GQWnHD50 OKz4FEZ5wMxlIJgb LNRiI7PqjO1yUqGuRDIj ZGRkOyc+PHRhYmxlIHdp ZHRoPScxMDAlJyBzdHls QQ5lSk7yEHBsGVHa nQivsUMfReCcj7saDCVc YMtvNS9ifSxmS2KtoDT5 VRNcy0q9Lp43L20eB6Eo dXA+MSKkjQT6nKA9 lP0xLtCeJfO4XSluM978 TcXwxZQkAfahf8lli8yi yLc2EnE3EDBstcFqfMtq XCV7x9ZrQv08P87q IHdpZHRoPSIxNSUiIHZh hXnnru6xpR9wRo6+PGNv sQH9yRD4lW0xByAbCkV2 GVvbE176SiWwfROl Opgba5iev9cpaXy5SuTq FATnvbFjxDbaXXJ2p0On Fl77P8CxiXfcr6ZlXlq4 by51eNHhu4O4rLM2 U9VwUHKgcvreaKPasPmb WS2vPKGrbebhPMYeyP1j EBLeL1z5WbUiIdR3TUcu M8ZlsdC4KMVrfJFa VNHsfXKNdP0hcuvqr2ht edfeDyLzYDCmJBj9GZx7 HCAaoLzcAbSpVFS8NiR6 MUQ2sJCyzS5tkCmu aaeyaV7jVse+HKW0gRFh rMCGGL5mDeuyoEM+PHRk URH2fJeyFLnwOZPswL3l SZClN4r9TiZuIoF3 ZHieP0DtpvZ3TJMieHHh NUTsvRXUfG6arqkig3go aognIkVkYGLlKKr1THl1 LWFsaWduOiBsZWZ0 DhM7KTQ2mCSxcU6gjVwc yowedL6fPac+QmlydGgg SAR8LGq7L6HjPiy0FGMu qBqwJZ1deXXlCKat Pv1wxFoxtHexJC1pXRMu comvg678MaNml0ilVKSg lUIcLAalGJQ0V55fy4B5 HJXtUGKxXWS5uVN7 mX7yiEskxupojMCzxOnu hbRchZyzHEyeFSoaK835 RPNscZjgQpKmLVv5Y5Ux Gfa6MKRxdMiuDJ4g dEScYVdbVb9liKfedXnl XE6kXRKvfwsqs065JbQr l8yaNAEpsHChMQvaWWL7 D16qr8F6SGFySYYz UWJ5dKV3kH8ysEnxzzrv bGVmdDsgdmVydGljYWwt MOijC566RMZnkUqlLaJx bUm8N7MnVys0BUVi eQnxPD5cfIJtWDogDn8u kOxobEiyTX8iXYXdazow d493PeAgh0vmYZNsxUHj JFvzVNB3I55gw1H1 FXTfRQVsXYC0sEV7sP3o bGlnbjogbGVmdDsgdmVy dWugFPtwQWuuB162ODAf cDsnPlBhdGllbnQg QZiaJPp7X7JyHmuarUS+ ZV47MHWcPN62xUXjlNUd r5utkYe7RaCmUCTfSHC3 nJogFSrev1YoVUAv S23yyMGjy3H9UMZxzSse tDCiTbHyrQN7mQ9pYLlh pqvai8wftjsvAxtdv2wd np42oM44Z02iQNdx ZHRoPSIzMCUiIHZhbGln uk1sqJ3gEa5+PGNvbCB3 rMK0kA8bNXWcBvW6MAwp Q062MvWyjBXbUbdb g4kbg2gpvXm8EsZ2OHBg gcMzjHjjJSZ6t8ZrEf37 R61nJJqzFMKeORFwJDTw RUXdrFccdo1iaD4o Ii8+BTXxbUC7cCT7jL9a OuNnIaL4ZJyiV471FdIq vNYyJsssI73nB6CjxIU+ ABLkKyu3CMOdfJnq PE4duLElPTzrOp8nABH1 QgUyIiDhHBczY8VaIQIs vagulwqrgBO2ZGNiMATt nI92Lx9otUqcCLUg uUGNlT0vstceo9mahkmx NkZyUBUbCXg7QYa8XIWv vTaiZzEoRRW0KnI7PDW4 yRVwdO0bsUhexppm eG3jW4UdHMFpfainUo62 dS8sXdFuQrF1UKpcJmz+ K4MOD9QNMYOYOHPLZXXN QjwvdGQ+PHRkIHN0 rSohWXagLSVuxK6tESFd O4s2XjBoXwB2FNwrH3Gu QESmgzecQs14lR8sCtHh JvZ1MVdzX8BlelP4 AZKucFJnKWqlDVR4K66d k5I3OBUnIZLtXYF9tKD7 cZ5yxRqohxzcpTKbuGzn dmVydGljYWwtYWxp B055ETElzDvsJuY5DiG0 GzF3RAh0H6DuDde3MDNh ySodFM9teHZqGQwvZo8j oEzhaAjxCD5wQCEv zcjlGWCtkM8lMPMbcCKd gRkqKH5yTSIxuucpj483 SfRbDUW5IQIjiHUsD3Jy cI4xBhWnHIGqJGHt J6JbwRSbJGgbE600RQyk XlV1OPHmdlKeX3IaHHYn kMhkQfS2j9S6Kh5iMyOY ZWFyczwvdGQ+PHRk HDJ6lQbsHKghAWXzjL8u AGKpM4i0AjPjFhW8TBoz K7XrCORplzkwXo35uQ7u NkTrVbP4YEigZ2Sj eoY3TAIetIXcVPszUKQ5 E40uo8L7DGTqMATiZDL9 gAM9kN5ubNgehekuwWQu dDsgdmVydGljYWwt TUxlM547KXArnFzbBl2K RZK6U3UiBbz6WOZvbAnj UC9gqKSgJSskMy2aoKww gGzzZX0pOMStjabg DPCvpF2zCXIyhLWfzIrm CJ2zKYXvltrmh998WqUe HID8VNTxeVItM6RxoW1d RpYaIQOoMBOmH5Jc pXMkIKmiX306FIrhUgM6 SZOzhkGqM2NrGWEnyXkn WqY8e3I7Hh8SVHcboFF+ OZ86ux58U0NiBgdk Hih7XJCpLIV0oGR0iZ2f XXGxEWiol9X8pVM2K0Vf ijCnzi1ip6nvNGUdSSmu S27diRMfl8I5IFYv bNZ3NYLqkBycPqYnnN46 Oyc+OROmrCahz8IeMrwe r8dwz7rodMn1FiObHIIx cyUgcCsiTXD3n0Ix Nm29Z28gZMhaFGIsTRYy GVVbJPOzsCiprn0ezO7g Ii8+TVVonRH0uBP7pD8y AgWpScT4QFxdY448 StItfWTiGotct3yqz0lc rAz1YhWgVSRknqFmgWcr LZY3b2YqWg29Y4AbzMgz y9RaRcx3ah45vDAu u9R7vKL6A8UwGUZwebzo pAXjnPppWU8lCKGybynt IDNssW7eZEGhK5v0LzAj MiL2KXzpH1XfkvK7 QBTvhVIyUZXsvMZIkY4i usapd4dcewiyUhKqLKPw XJj0WQg8FEYphCrySjUg NYS3PkK6REL0rENm lE2ctAhhljlkeH1cUdp+ RKz8v1uacJJvXO6tyDC4 KR81CB36jEDlg2K8vZA6 J8WlOFUnhtzecqoh kKE4ODYvBLAcoM19Gq0f bMocBo9cWXDaIJF6RXAo cCZiK2ChwT0iCuEzLAAb DWBmV5XohNFhMOar Y622NBvxWwS4IKMpweUk Z7BsDWLksDncBlG4f0V7 Ky5KDH49WY39ZF37mGRr x4Y4gYP2K4KkDBPj wqilmuthzXZ6LANhOXSy qD33Ql0heLvaNv6bVSIy QCM5EQRawJByB5QgwP9i SzSqXZEbJSPdK8Wq mFZwVCwcV095UJvvPaB2 ZWKfptGqM7FoGCHimFkx RoB7k9J3Kl3KBf95VG48 EY67vFQfp8C6kQB4 G5ZxSWRazhyujlnnqZH4 KEZuFKSoaC42Su9aaOfz Fz2tDNTbMGZ3FDVueDUk X9FwcN8vZiIlXQKl TMCbL9WqhFCzKJbvA185 JQcnZrD9OKIbvkAfY6Gb IUYyrZqvUlR9d4O2Np0L YSumfgh9O8QyIgbt dHI+PJ52IIHhZN67vPDj tMRuk2ivtOy2MpSiDQSa FYB8hYkeWIlru6JsCGLf J75bjHYyf9J7NGPp bGx (more content not included)... [facility] Coding Summary HTMLBase 64 JwhrapvfSOz5yUf+PGhl YWQ+VS4KLNUgT21enIOc hV6mJ7PUYLsQPqaiLDLX SMoOTtCqxxRxEH0egVFs ZXJu IC8+NE4lYWKdSvdbmJKh i1K6wBM8E18qsm6qMMvh xKN6NVNvRiXwmehif4fd tVm0TGzzGhfyQhNy HGCryH64ZVQ2dN52Bg07 mZNzhQKnt9acaGk9ZtKr BQMvHLC9gLsnEYshw9Ye RIViR14whIJlg6W0 IGNvbGxhcHNlOyBlbXB0 nB3kCFxjktunz6ntuhfu Lkt6dj89eNZwe4C1uMP6 E0BhcxV9BGEqkUAy IswxsQYNzN8tcellw7pd ldmsPnLvXIQoJPz0DUa7 TQKhgYliBsAuHA15NKH2 ESLkecNvE6KwBUWc xEmfSlB6n1J3Vy3MG2OU WfwjQ6RAWWTUXPemcRK+ MG16bb80O7JjJovxLnl5 CYFxQFJ7rQF0wC2t YSDyXKnyq7T1pPT0W9Jw esFykn9jl2xvGZGfKMol J33ypZXrc6E6ISPexTT3 SHKqpMpwLfKqgV51 Oyc+TFGoyYvwo1LxDcuj k1iae5wzkBy1JbovLQJu rfHzaHtqHVS0x0NxUv1y FYNvuPP6xIS4yF9y DgRgXfS4AXyyZ980HnHi rNKtMtamM99uQ0MwqQO+ DMRgXwu4QCWgcWwvWL9h V2ZwCZXppcmxyWCn aQchWE3jNAQmzyycBPVp nS6cCKRrL1k7YhFvEpL7 HYviX4TaMGMqgflzFl57 eE8uIkNfBfV8ZEdy H5QvmqK5ANNfqTCvMRug UGU6Y90sa8N8NMTgKMJc TIA9vPH4vT0tzOhhtkbf bGVmdDsgdmVydGlj YZnyPXusZ526BTAtsLfl PkNvZGluZyBEYXRlOiAg MDUvMjAvMjAyNTwvdGQ+ NTTiTDJ0rCgkVJRn qWFyCYyeLh7gtJutpJrm PI3cPVUlosvePXBodZ9w QMPyaGJwdWupHX9qKEMh pvioc290YzOrZIS2 QZKcqTPyI8DquZ7nRaPs OLVgHSPwL6DyyQYiUZen N898CGvoRrT1LTJcokFt O5DxBPBnjScqNiV2 m8J6Cp0Fv2VsodzrW7Uz qTCgSePwCaatPCf9T3Em PjwvdHI+VL54WQQxIJ95 HVf3ILE6jLfnLMvn NBApG3NegA7sRbYnMLQt ZGRkOyc+PHRhYmxlIHdp ZHRoPScxMDAlJyBzdHls RS5rSc7hZGGaJGYm oVzycGXfQkIiv2zpTQGk JQroMB5fzRokV4TgqPG1 NPEqs3g0Ki45A01jS0Sd dXA+FHUzkAH3hPX5 kL5sFfAoPjU5XFokN464 AfDzxOPnLajoa3jzv6wz rCi6EkC8NNUoddMtjCqn ODI2z4IxOm57B61k IHdpZHRoPSIxNSUiIHZh yJskvg9vuM3rQv5+PGNv hHV1tWO1lF1kQoIjZtP9 FFxlO642WoOoiNQb Pqubz5fqf5wkmGw4VdNe FQYwfzMomRhsHMW2g0Zx Fq90T4YakCacv1TtWpa9 fc76yOCrr0E6rNY3 N7IuNKQkfgywhQRwdYkg FR8qQQImrifmRKYesM3b SXUfG1z2MeRpOvM7GLmw S4SsrgW3URTefCIh TWAkcEOUoK3nxkubg1ct gsnnCzOyJDEnRWv8TOp8 UAVqaNkuJmWnUZL3DqF0 PRU9oPAulM7vpOvy hpjaxB4lXmr+PCB2vIMg uHOUMM7tXucnqEN+PHRk VYO1xEycDXygVAUafV5i MDJdY2j2WnVsDvR1 JFjeX8KleyO4FPMrmZVe VEWmtXLTkE2tpfuoh3an kuhjQkMoOYHkXXf2KVv6 LWFsaWduOiBsZWZ0 TmN8QJI3lAXvcW5hdHxs qbbihB1rFkz+QmlydGgg JBU0BIg2J1IgXfe4ODYn oSszQY4ylQDiBTvd Kk6hmJmwySzmLX9lNSYx yxjtr333ZuHrd4dfHOLt qYLpBTquBFW2T65de5M2 VLAxMPCgCYC8wFL2 kY6cpLbzywbkqKLztUzj guKgcUfsVMjvYCppH012 ROLyzWriBgSrRUf3E9Wv Lyl2UAZyzSoaCM8s qVOvDCstFy0zpRilvQza JW5gLZVxqykwl766YbRe o5juFABxcCFrOMaqDZB6 M90jr4K9LBVfBASk TUQ4vVB6bJ8stHbbthth bGVmdDsgdmVydGljYWwt ITkvA860KCUjpFdxJiJk eFy8L0JiZqk8ELKa hEfeRR5duUSoMYpsHe5f hWcjoCxmJT8xYUZbahhc h593VjHjg6wmWESygHQm BMuvIQL9Z24qc9H4 PZUhLQPqEYL1gYS2dA1a bGlnbjogbGVmdDsgdmVy aChdEWmbKCqoQ726ARWh cDsnPlBhdGllbnQg TQwdWNr6N6FvQhltbQE+ DQ27JQIsKH00zIGgfYMj g1itmTl9IuWyPDOdQCT8 aQieQZkfy6AlOVGm Z94gjMFnd2D5ZVIgqWol fKSeAgMvfFZ6iA6zJNlw fkudu9ocerxjKczez6pb sb86cE44Q08pXDfv ZHRoPSIzMCUiIHZhbGln ig8jqO8lDz6+PGNvbCB3 eSO6dI3kRXDiFwG3HRkc M499SkLjmUYtAlcv p0omo1sxqHh8XnH4MGHf grUlkMzsUFU6s3SpNt12 T20xLTbzVIWdSJXhRHCi GYVkgSsjux7waD8g Ii8+NXGicOG3hVT3tP7u JoZqImF4YTzuH594PgSb oKMvUpqeV77bP1HsyBK+ XGRlGys8HVJgtVgc EU7skBShMYggJl0qAAT9 OkEaBlSiCEjbG7HiTBSz aqveuvcvmFH2GWGbMNXl aW13Bs4qgRdgDTHz jLKErI8rwnulu6ufsytm LyTxSQTuLAp4OEb1AIWe tBaiJlFyBEN0NtZ7BCH6 nTLimY1inOvbtokn hK7pN9PdUGWevvmtXz56 sJ2hQqAnAqY4SMfoJuf+ D5ONY0ANJPRJBHGJNJFW QjwvdGQ+PHRkIHN0 tNceKKubCYEopV5vNQLq G0e1QyLjQgV3NHtzT4Qr IWMgnjqjTl76rH5fFiMt QkH5PEjbD6SmntF7 QMPpmMNiZFzjYQI9Z27u s0E5PEAmYSOeNIU6cLH6 wO9cqQtbadyiyXYnnMne dmVydGljYWwtYWxp I135IGBvdEoyGmV0TsV9 WeT6XGp2F7IvZki4ZHQz hInnKJ2zkRBpZYwbEq6r tVgjgRtzLE1iCXUq qamkNADcnM3hYVOobJAf cTixDQ1bPGYupiyio029 CmJsKDC3PAXdfDKgW8Sg xR0wNvKdRCEcXQCa U3CeeKNyLIgwH382DRka UxM6XSFtqeCnP1FyBMGr uXhzTpS6r6M6Qu7zUyZD ZWFyczwvdGQ+PHRk TIA0sVjlQHzoBVIkpE0f XKCvU4i3AyZsNgL2SLwe E2DlJXLbuxseGd69uL4q HlZnHkQ7QSjlN5Vl ozB2PLKdyVWrHHiuKZN8 N34tc7C7WQDfUFKjLKC8 vXX5lU4amImobkbhbYAc dDsgdmVydGljYWwt QFfrN828YKIaaNvpMr4Y YBL9Q5StFtz2MWMmoUbw RV7xmBLgMPciUp3vzJrj rFfhXJ7bQUXfhylc ZSQkdA5wQXLivESxfLae WK1uIUDlrtjwr410SjUn HFH7ZTVnoMMxU1PdkB4m VrHkYFCjWKGhZ0Pq cOEuOOuiY094BVupSdM4 IRKswkVmH0VdZVFgxQln LoF7t7I9Ij8QRLegfPZ+ EK00ao59O9ZbLuvf Fkn2DMNpLUJ3zRM1rJ1n PDOzSSpvy1T3lBQ7P9Oy eyAjdq0wr5ebWHLgEZbv G62mvXFdn1R4YVTo rWY7ZEZhcMoaBcHojD94 Oyc+WIZtnMtwk7FiUfld c6xct9rbdLc4TnDjHFLq rqEelYljQAF9y7Sy Bq97K68aJAvmKFQfSFSf GTZhRBPwkPkjpo9wcC5h Ii8+PZAjiDD4zNK7cK9t IjKsQtK1MZdyJ338 YwNlwZWbEifcg8bny8qo wQu5GnBwRCAioqSugXre EQT0q9LrWb43B6HhmWql e5CtUwa1kg00hLOb i0I4qQD7C0CrEYCljriv uRWdeXtfMM0cUTGjlfir DCHchG3gVHMrK8h1JzAx BmY6TWndT5IdxeA3 OKOqmQRqIZLyzTTSpX8q dvygj8fyfmoaBgLvSRVp ZXr8PJi7SJZfdPofShXm HMY3MzQ7FGT7vFRh bT5qeTkgcwrmeM6yQiy+ CXu2l7fusGSvPJ3wbLM5 IL50HM24tEGjn1U3mLR0 H6JlRXFwaygqcthz gXL3EJCePUIruA83Rb3s kWpaYx0aZZNzHMB9QOQz gVVvU5DseP4vXpZmEACo UGQiZ1UdtQIcDDgm E830XEunAlS7FDHjzdKz B7SxXGAcsGibPtB6w4B6 Mm0JMT42VY25YA32cQWc i9L5aHS7V2WxHXKc fqelbxwocQH9AYOkNFEf nS71Kp1gkFchZx3hIBAq WKK0BDExfOPfE5BrrX9h SrQuLBJtKOAwT0Zp wWAnJNdaB606QPquWiW8 LSGpdfQrP7QoXWThfXoe MfG7b3F9Sn5WGk74YN87 SJ05iJZqt1V1dLL5 S0TfCHTkzlxnswjvjOG4 AGNkEBAknM63Js2fmWhk Zu7hLCYmGMN7MZHaqWSp M9DrlL8sZxBbEDKa FCJaM7GyrZPqZUpgM004 DNqjWrE2CHZiklGnG9Lj NSUwrKbcCbM0n9W0Cc4T LLqotwp1G7VvTbtw dHI+IN80BJVnNZ47tWCw qEIkr4cxiRp0OdHaBNFc HWE4zYjzKMlyi5ThXOTz Z09okJGrl8R9HLTr bGx (more content not included)... [facility] Coding Summaryon 05-09-2025 Coding Summary HTMLBase 64 ReqwrvxjHXp9iOx+PGhl YWQ+YV9TCXDtD44ozBHx jQ4gX4JLIRdIUpwqXKWA EBxDRvDrbuExPG1xoSKy ZXJu IC8+HK6hOFAyIhwweFMn i3Q2zJP1U03nfi5gHDnm qWS1OGRiAhPrxuwus8xu vEd8RShcSetsKlYh KFKgeZ57OEF3eV01Lu72 vBBflZGzv7rhfKc1GrLo KCNcVRU1jDpiWEatw9Nh SZFoW00uiWLxo1Y0 IGNvbGxhcHNlOyBlbXB0 fQ5gVLzcekbmp9dxtmrz Lib8lk44fIGbs9P3uEN9 C7TwmjO1UIIzzYQx CulxzJODtZ2lujwmz5yk dsqwDsEqPZUnYBr3BJk0 YFUuuUmnDvVtLC94DTP3 GMYgezUxR8NgUGAf kYuqUwL2z9O6Ok4TA4WP OyhgT8OMFNCZUBbvrWW+ UR94df49H4PfCgpzExi8 SFBmANY3ySZ5jC4x EVApGApyh0U8gOU4A4Gc dxDvjy1ea5rkDRMoBSwu O55bfJTpg6J1JLDmaBD8 GLAyuQfdGzLfvH51 Oyc+WMJscAsnz0YiEwoj l1lnb1nmqBt3QzcbYOSx whAofRheEWZ5g9OsKa9y YGIdrWA4xVU8bR4c IpBhWsP1ZPjbL136VwRv iZOeWgfcG23hO2VdzUA+ KUWfEqx9HPGskTduBS9o T3RbYXLusskefMNd zLqwUP3xHKNrjfqbGGSj zQ8bXMDlN9x7TrVaIwG3 WAhrF4SfXBGxeazxLs23 hV4vHmUmLdT8ELmf N0WpnzK8UKQpoZUbAJyz OVF6A81fc2A1CBLzNKQw CFQ8dJX6tZ5hoRhbeobx bGVmdDsgdmVydGlj MZlrXPbsO052WGNuhAou PkNvZGluZyBEYXRlOiAg MDUvMDkvMjAyNTwvdGQ+ XUIjPWS5hEvdDDCo cVJjSInbZk2hdPptqPsi VT8nNBMurvroHOCbbA1r BRXscWOhfFtjWQ6rDRGj rdrlw036XwNeMZA9 HUOwbRQtH3LeqH4mUgHv VXOyKUNzD0FdwCZtTNub K427NLenAsG3IEGpwgOj V6BwVDWxxCwuLyE0 a6P6Xi8Sj5TvbkwcN9Yq dXKiEtFhQqesWLg8Y2Fn PjwvdHI+TH80ZQCuDX22 ORc8ZST6bMikHSvj WRJkW8ItnE4hDiZaFBBr ZGRkOyc+PHRhYmxlIHdp ZHRoPScxMDAlJyBzdHls HI5jVm8cPXAfPXOp iJxhaLHkPpAvc7hcYSHg TFieVR7rcUznE0PukZM9 MHSqw5q3Sd37G05aB9Fr dXA+IFTmbHE9oBU4 uL1xFiBzFeR5BOvpX298 EwYweSDxBcgoi2typ4ov hVb7QbO1RZSqfbWjiBjb RPM5i5SfFq32K51s IHdpZHRoPSIxNSUiIHZh eHfhql7zvA0oWw9+PGNv tXY3oEY8bP2lMaMpXkG6 RDaqZ064JsGdgIFk Uqubx6hbh1dkhHg1EkGh PRSceoVowLviLRY8x7Nt Zh90G3YqmCviv8JoVuj5 pr12hCGrb3N8kQQ0 M4EgAAIdamufkWOnyPil GM7uKIXojmpwBNUtgN7p AYLbD2a5DhBrAvQ2PBvo R2NrgeZ8YBBdaPMw KUBwaDDSuM0btaoqq0en rexnVhBmRHEfDBk3RUy1 GVLmfFwuRiWxQPL1YhN1 DHW1vSDrhC4btWgh ubqicU3yXzv+OVH7dVRi dLHUSY6qDtofiGF+PHRk NXI6eOpzWZqrYCJarM9o IIStD2l5YhTfKrR6 YLmqQ3BrbpZ9FVQpwDQt XJAxrHFKdL0eoduom1bg uvvkZeDpBONyBZg0JHs3 LWFsaWduOiBsZWZ0 WrA5KVY6rFHntC7btQth ikvioB6pFif+QmlydGgg AMB8QEi5O6EuEil2KWYn oMqiGB4cpIItKDpm Gw1wpMwvmVqzDH0iWVZy xrinw767YtUpu2igDJXq dTBzDKkfNLJ7W01zv9F9 IXCkANQmSMQ9tAP2 fF8goEzikpvboNCdhOop hiWydCdbGRhwQKkpM020 GFTiqAwaZnHlUXm9I3Cz Gaf7HSDxqEzzBT6k nWVzRLsxNy9ufFsqoZvp WS3qORAsbipvx070GaIn q5qpNOKtnFPhZHyaWTH9 U86oy4O6BREfEKMr KML5mEX2zR0tmFaqykqh bGVmdDsgdmVydGljYWwt ZUbbU746TKDtlUtbWiXs aPh1R9LqHnc2NZRg eAejOX3rvEIqNRauUo4g nVgziOvdDU4eJUGyylib r031NaApv5kxAKZroIFv DDxwSYH3F08pp9L1 WNJyPONyIIR2sFF6nO8d bGlnbjogbGVmdDsgdmVy fQyeJAhqGMraV413QUXv cDsnPlBhdGllbnQg WFlzAUy9C1PsFchhoGU+ NZ00JSJpOL15hJTdkGZz t7pgaPb0QnGrAOBjJWS6 yUjkKYtfp4LzWEGx Z16vgLSgi7V7PLPajOom dICtLbYmcWU0yT0kABgt iqojj4xmmkozLppxr9yw hc14tI96M65oJDjx ZHRoPSIzMCUiIHZhbGln qe3poZ0hWb5+PGNvbCB3 bAR8cS6bGNStKpT2YHmw I695JjDjzXIkVzbe p0fnk9gneXk0AeE9FSAj zdIlrJdzYYR2c4LsCm66 Y62aOUshPMTpMCFpNNNs GQRxqHppjr1vlB1s Ii8+LZCttIK9iIN3fZ0j YoLgRiF7CMrzR285DkRv tFCfZtysK07zF9OctXZ+ RKHxHie5HNJasOne IF0mjSQgSIggEb9nGZM6 DaCzDzAiEScrM7ArBKDt dagrwvqigOX9GOQrSRCt iT60Ov6nsOjdRFWt oAQEwE9dnwfvj5priqvg YgLaRDVgRTz2BYk9BTQi dUotZxIvLDP1LcW9XYP0 iDEppT8enFltbgyo mG2pB7JwFZUacesgGn80 pM1bVaGgIoS7WJilUvr+ X6EWE1UFSWMTIEJDWMJR QjwvdGQ+PHRkIHN0 yGjoMHjnGNPzgI6rRNKa U7a9KcAaWjZ6QNcsH0Wi EIFngorpDp14kD8nZoRf XxM4HCraZ7JvrwX0 RIHxmZVcWFvnPEC8R88t g7C9MDGbBHQlFQV8vSB8 lR5kpZdtggihxUGpgKun dmVydGljYWwtYWxp A108DDOfmQlzAlU4NwW2 QhO7HQt1F2DyAxb3ATUp iYauVF8vkRFcJOgvCu9y mExevBmdZZ5hGSLx fmgbTMQqnX0yVOIgpUPs qTynUH8zTJKvxsrmq044 QkWmWGS8FHOukTYhC5Qx yF9jPcLdUNWdPZMm Y4RjeTQhNIwkZ478ZVvn KwY4LOChbiKfN4DvQPXk gCrbGkE3v4G5Gp0fYeXQ ZWFyczwvdGQ+PHRk TUA5tOgyETluRPNqhU8s WKRoD3r0PuStDfA2GGqs D8GaZOSmwnurTi44zO2f XhJnKdR1RAnzZ7Bi lpU3NRFlcRFiGGbwILS8 M95ud8B4PQDbHMDhUQV1 uOR7rM6xmWzwpgfedCWf dDsgdmVydGljYWwt PDhzB719HOBmvNdoEf5B PFL9L3OgPmc9SKZmcMwj HS5odCCdMVepVb6gmKnf iAueKJ4nDVMnbfau NZQgeA1uPWZqoYIawWhz FU7kGNIcnfimw970FrDy NXV4CTSpgZDqO5GauR8c CbDrWMDgECMsM0Rh jWZfKHodK060JRiqXkT6 FXUgnxWdU9ErPYZugUot GiD5n2N5Lf1DDAsgxYO+ AG63oe33U3JdNwrm Gdf5FTTwQBX4dWL8pE6c MGVdNPiuo6J4hOT6T7Yy ybOeha3ao4tyPMGaYIer K22vgCYot5A1YDCb aVP3IKBltLvsNiQqbZ18 Oyc+DYMcoXnoz1NeZtwu j4nca5rwgNa4NxPiBSOv fsCrxVhqCNG9e5Ar Mw56Q38bULsvCESkKVOy PEQsBAOzbQplpc1zmT7s Ii8+SHFcrIL8xXW8aI7e ZbQtOiP4CYdzX206 AlTvgBLtHfpdi9kye7jj aKz5HcUjSEIkqjXcgWxn VRC3d3DlDc59S5TrfNlb v7PtVlq1wr53cMQz o7M5nVF8O0IxDSYatbum pNFouWbePC9wWRGfsmbz XTBxxS5bFJSpK9o6YnMt ZeB0FQcnC0FsghU5 CBFwpJAuKIBoyHEGpK4q smfqu3taibhjYmCrHTUk UEk1SKz6ZTXikModKxSe RJP2FyW2CKZ6sYRf jE8iwInxrdsnjI2eTxf+ IGn5m0oohDHqJE8obRL5 VH62HB64xXAkg3M2bJP3 E9BoNBJyiesqezns uPX6ZACgWPEzrW76Ie4n fQuaAh1gHYRbIXN6OBKp gNGxE5HvyI3fGzArHNKg OGWoY9FohZZbSPsb G216IOmbBrL2QFLbuiSp W7GmNZXpoRwiAdP2c9K4 Hs3PGY50SD74RS82kNXe k5R8qZD0S2BuKQLx nzgbqxigbOH1WFTpUCFm vH15Ty0hrRhrDx9dOOZy GYS2BGNijAJcO5SwlH1e OiHmQHMoCROiY0Hq yIEuPPwlG469DJdkUmB5 AXXasnQaM2LpZCFpvUfg LnP0n2E4Ih7OHp99BN05 UH60eGIem3T4vPM6 H5ArZCLgesphyrlyuPP9 WIAhPMEjkM11Dp9ztQmj Nf4wDPGxOGN6IRTixOTu Q4AqlP6yCePwHGLs GTAjD2KphTFqBLabW079 LLqrHuB2QCEfbhUfE0Hd EJDefEkcXiW0p1U4Se5P EFanqtf0M6HgSkmh dHI+OK03ZRAbZP95lEMm hCHic4wmmSi5OmSjTIRe LTJ1cLwcNFoxn8DhTFEn I70jeNOvc7E6SPKy bGx (more content not included)... [facility] LE Venous Duplex Lefton 0 08-14-2024 [place] LE Venous Duplex Left EXAMINATION: US LE Venous Duplex Left HISTORY: Phlebitis and thrombophlebitis of superficial vessels of left lower extremity COMPARISON: None. TECHNIQUE: Venous duplex examination performed using B-mode, color flow and spectral analysis. FINDINGS: Post ablation occlusion of the treated left leg varicose veins with no deep vein thrombus. A single incompetent varicose vein measuring 4.3 cm is observed IMPRESSION: Occlusion of the treated varicose veins with no deep vein thrombus Final Dictated by: Maryam Jordan MD Dictated DT/TM: 08/14/24 8:46 Signed (Electronic Signature): Maryam Jordan MD 08/14/24 8:48 am Technologist: [facility] Patient Handouton 07-30-2024 Patient Handout Radiology Sclerotherapy, Care After After sclerotherapy, it is common to have swelling, bruising, and soreness. You may also have: ? Some changes to skin color. ? Slight bleeding from where you got your shot (injection site). Follow these instructions at home: The instructions below may help you care for yourself at home. Your health care provider may give you more instructions. If you have questions, ask your health care provider. Injection site care ? Follow instructions from your health care provider about how to take care of your injection site. Make sure you: ? Wash your hands with soap and water for at least 20 seconds before and after you change your bandage. If you cannot use soap and water, use hand slip cover estimator. ? Change your bandage. ? Check the area around any injection sites (injection areas) every day for signs of infection. Check for: ? More redness, swelling, or pain. ? More fluid or blood. ? Warmth. ? Pus or a bad smell. Activity ? Do light exercise every day, as told by your health care provider. Walking or riding a stationary bike may be good options for you. ? Return to your normal activities when your health care provider says that it is safe. Ask what activities are safe for you. General instructions ? Take imgh-pvu-rvsvgvo and prescription medicines only as told by your health care provider. ? Do not use lotions or creams on your legs unless your health care provider approves. ? Do not smoke or use any products that contain nicotine or tobacco before the procedure. If you need help quitting, ask your health care provider. ? Wear compression stockings as told by your health care provider. These help to prevent blood clots and reduce swelling in your legs. ? Wear loose-fitting clothes on the treatment area. ? Avoid being in direct sunlight. This includes avoiding: ? Sun tanning. ? Using tanning beds. ? Do not use hot, wet cloths or any form of heat near the injection site. Contact a health care provider if: ? You have more redness, swelling, or pain at any injection area. ? You have more fluid or blood coming from any injection site. ? Any injection area feels warm to the touch. ? You have pus or a bad smell coming from any injection site. ? You have a fever. Get help right away if: ? You have leg pain that gets worse when you walk. ? You have redness or swelling in your leg that is getting worse. ? You have trouble breathing. ? You have chest pain. Summary ? Swelling, bruising, and soreness are common after this procedure. ? Check all injection areas every day for signs of infection. ? Wear compression stockings as told by your health care provider. These stockings help to prevent blood clots and reduce swelling in your legs. This information is not intended to replace advice given to you by your health care provider. Make sure you discuss any questions you have with your health care provider. Document Revised: 06/29/2022 Document Reviewed: 06/29/2022 [employer] Patient Education ? 2023 [place]. [facility] Coding Summaryon 07-10-2024 Coding Summary HTMLBase 64 TmywntdcBCg4dTu+PGhl YWQ+MM9WZJVtD96sqZFi uS9eK4LDMKmYCfiqTGOJ XIgVGqAvxaVoKD9jaGNr ZXJu IC8+TA9fALZfDwtzlKKk p1E3cID6E23jvz6eNRku xUM3TDDkYjEjzwksl2ws fIg8YTizWrboGtXy BBMupD54BNR9mW30Vg93 lJDgcKXaa9prgFh0RmCz UUPrROH1eKocIRzpx4Tw PYJkJ65aaNIbu4U4 IGNvbGxhcHNlOyBlbXB0 lY4eWVeyqjtux8kugqxo Ofv0iy83jAIet0L3yXP1 E5XxygA3JIAwaMLu PpgntZBYzO2ndxyag5dg pydrHeWsRMQiDLd9HAl7 RWEbjRxcNrAiJA10IZS3 EQNahwTtC4QzIOSi sCdxRbB5d6I8Oc3KB2LA ObpjB6NKFJGEZNilqXC+ CR59kt73J1FxKtuhZao2 RSAfFNS9nAX4zW4h QWVbOBzyx0V8sXQ3M1Nd yhNkcs5ur0meIDOvKNfj U27mwKMje2H0DCJpxFK6 OXJzrRfeRsHnmR70 Oyc+NVDxbZxnx7UoJdrm p0sir1awyEn2VgjhULPd wrPjmHmjCQO2p5YnUb4c ZCRawPA3sET9wW6w EkFgJwU4HSilJ244UcCa jDCrQuenI46jW3GrbTE+ TUVuZmt5BSHkpWyoUK9w Y0YfGLKrstoctAHx qLyvYD9qRMXiazekRFQa aW9cQGJvG6n8QxGbCrL7 HDkgB5WlJYRhmfuzPk30 lJ1lRqLfFhT6DQtk H8WrkmB9QUHapJXkPNpr WQA2Y63dw6Y4CRSwBZCl FSM1iGL4tZ9vhEioczgo bGVmdDsgdmVydGlj DIqzSYcgP944CLSnsRnz PkNvZGluZyBEYXRlOiAg MDQvMDMvMjAyNTwvdGQ+ WEGoXKN4zFidLVQt cEDkKYseSw0faKqqmGhy JT8dCNRdnvmwABRpgW3h IBFtzNKhnBrkCM5kQIEr dllur956PsLbZEP5 KOBolWFuP5LtiY8kGqKm YDImWPMxN1HpuVEqVRnc G239LSdvFiS8DENvueBc M1DbWDKumRuzDfM8 x3A7Dy0Wy0WaexqkZ4Lm fRQmSrJvKqpnJPp2X9Jc PjwvdHI+QA91ORTrBV24 TUq4UQK9vLpvAWkz QLIgC1RbvB0dCoBoRXFp ZGRkOyc+PHRhYmxlIHdp ZHRoPScxMDAlJyBzdHls SV4pSf0zMFDmICKs nGguaCRxKxSym5rzVWEm FSkwVF9prKscS0HocVH0 WYKnd1w4Tn32N11bZ4Nv dXA+JIDhbLX3mZU2 cO1vWgUfTuB8PPevA027 VjNckFXzYtsqg0eue8ov kDl9BhV5SMEyezItjHzq LZN1m5IvWv32R71t IHdpZHRoPSIxNSUiIHZh rRglpn1chC2oAi9+PGNv mNJ8qLM8yX8vVxEwRmW0 GCrmN975ZrIjaZPj Ppbcu7kvl3bmaUk8XoRz BFAqfzAqzEtrHEB5k3Qa Ok02S7UnpPzvf2VbSty1 yp75wSNhp1D1lYG4 I2ZaLGYodqpgsWLvkXsw IS3oLCHukcgqZDUqpS8e QGHpG3a5OkGwIiW6CTzn D5RnuuE7VJQqfESc HAIvmZQGdQ1dovuxk0he xojrUhIfEZHoZBa1LCl0 TMKcgAhcDtHnOMN4ZuO8 UGE8vJUqtY2foNqy kdcdiO0gCme+PWH3uRNn mNTEAO0yFuurvOG+PHRk AUB4gMemUNbfKPKfuS6d UMAtU0u1XwQyKeD4 YSypJ3ModhG2XFQmjEPh YWNzcRFQaV4pqgkcb7gd jmcmGbBxLXBtKHq9PUk8 LWFsaWduOiBsZWZ0 DeW1ODY4wOUlnV3suJeh tcsdrG4iEyq+QmlydGgg NQH3WPp4U6AcLug5AEKe pMumXA6cmMDrBYgh Oj4lgKqbcKzhIC9hWJMs cetyl403PtYyc1xcFEZc sMFaQDpwREP0D29fj0D6 SWBhEQFlUBG3iLA6 hJ9tmNuzeiwxfIUzcAbf vnEsiHruCGoyQXnkW794 CJXleOdjMmYkSXi8T8Jt Yth5EUKtzQxzLT5i yWOmBEkdVw6asVoemLca NR6dQFWhzggpe856ZdUe c9juZJUfeLPkLRfvIDF8 L26vg7L7NKKwYTIj DWC9rKH5oD8zxMxxfcbi bGVmdDsgdmVydGljYWwt ZTfdK011CSJnkOfeSbBb jEt8S7PrXhl0OACt zDjeXW7meHWlFQgjRh3f eDukaWysFA0cQZSllhtd k075CxIph8yrYMSspDHo GTxnYJH6L17nr6D3 CDUiPFBeFBY7cKN8jD2q bGlnbjogbGVmdDsgdmVy eEhsLUpwWFrjD951SVZu cDsnPlBhdGllbnQg HQevKLn0D9SmFnidfKV+ LO73FUXtCT59jUZhlQKl y1ctvOq4UyQjLYRvDXP5 rWkdEOmrp3TrSSHl Z34hyLWrg9E0DAMiqLyo uQDiJwQchYJ6eZ1bWQao abcej1skuiykHzxpt2rw cj10jB43A12mBWrz ZHRoPSIzMCUiIHZhbGln tp1mzJ6iGx9+PGNvbCB3 xHI6jZ6bQSSkXdQ2TToj Y032WcRdbFYhFjcv f7hsj3cymIo3CbI7HBKg cxGwaCamTJW7k2ScAh93 N30bLThqOYRaMCFmUZTk EWHivMdkxx8ilD9k Ii8+HKHxkDE1kBZ0fJ4w McKjHvO7VNckE223YkYa cXXgJvhvU01oZ6HqxCJ+ DGWiCnq8MSUgaDxa JS4xkIEgXRgoVe2vFZV7 DwHxRaNgMVndX2SwCVGt ogwfpoxdnQE1SCWjEVLm iQ16Gk3zeGhlFOKx wEHXgA9zodwfe0sxpatf NuMaVTSjHYs4MQr7OPEz zNbdTjUmIXZ1KcB0HJV9 lMKgtM6weChgwkgv iA6uO7HmKNWyldibVc16 xA6iDrYfRgX4VXprJcd+ Q3ZSD6PPMKOVMKDNRSQY QjwvdGQ+PHRkIHN0 yMogKRumTBDdjZ6dGTMi Y3c8LaMiBfN9YEzdG1Pa NBRomzekEk87hI1tWiXz JyG2FRgjY9RycnW8 PPTdxNNuDPgzTFK5B07q u8G3ZDMuDIIsKQO3uPB9 iW5neBzmfjojsWSguEvk dmVydGljYWwtYWxp K007DMLqqIohTnS4QzN9 FhW9ZXj7W5RzOyj0FBWo nQssGL2ryXAnDZxxCm9h qXkbqEnwDL9cLAOf rttaEQTmqC3pLKNkcTIa xWhmSZ1zFRBndehrn256 MbJoJKT9ZUUgfIGlT5Xu yI7bZtRrJIOiAQYl M2XplAQpXEqvE207SAmw ScB6OLKzrfZuA9WsTTIr iJeaWxN0m5U4Gj2aKfYS ZWFyczwvdGQ+PHRk HLK0dPcwQIeeHAStaS2o IKSlH5t7NbZgFwE9ZOfp B5DvASRxunuhGj07eW7a OtUbFoJ7HMeaH8Bv kdM1IETynUViTFucYZB3 W96ih0V8ELLfXPKbNWL5 jAG6kF3uvEynausxdNSn dDsgdmVydGljYWwt ZHobS369BTEjbRnoNc8A RXJ4K0AhSye0DNDxaGbn EG0mzERkODtlMj8swPvh fLikKU4bJUPskipq JPUzzW6qVJCjmYTomPxl ZZ8pPCFbtvajc119JaOj LHI1NLKhfSZxY5UihL5n PpBhFGAnEAAiD6Gi eVPnCSynR306YOlmBeM0 BKUeueTaD9MxLWAqmZod CxD4d0M0Oc7QUBdrnUU+ SN61hs05J6LdWrey Fij9LNQcIFE0eHK9pE5h ITFzNHubu9Q3dES9V4Tv lkVhoq3nu8fwEUHwCVrb U95hmCYas9N5PFKs xEV9UYVkyUtjMgHlyD79 Oyc+RVNtvMrre1NdSkcn w6ipf8fmyJr4GwYxEXGa slAxkVsoBRX2c0Pu Tp60L81vYXbrSZPhYOFh PSAcUITquNieua6nwW2c Ii8+RUQrxOY0lON3hN3d TiAbWjX1JXtwE309 IcLtpCXcTprnl7noy8oj cZc6MbJtBEJrpwXkmQsr AZQ1v0CtVg52Z1CwxUsu e7ZbGve2hp40lGFj f4D0yKB3D7EdCSWroazu cBHknLccRI1iBTOvfoxi YFNqvX0oOVIhY3r7TnXs NwY0KZtxM7QrckB8 DNHeqSPiPMHwzNXGyP0h zkdwn2wxwhltYfBxQSYk NKf0VDi4KWDxkDqeDeQb HIN3EcS4NAQ2eZDo iN3khMsutbuodT8gNjy+ LYp2k7oekAZqXO8bzBD3 WQ67XJ73mVJyk1S7uKW7 Z0CdKRVyxkxtrktb vWG3KHSfTWKloC44Lq9e oUxgYc5nYBPuTTI7IVVp pRRkF7XvjB0gJjMlTIBy MTPnW4SsgANmMEtc Y195PBusKkQ5EBRqbqNs N4PqRUFlfQahObM6e3P1 Bf3DZU14IU63PD46dXJf p0U5gWX4W1WaHUWl xndqegameKU3ZWGeSOEv cQ93Hd8gaGrkMw9xDPFz LBH6URLjvBFnS3VodR4f PyEfVSAbEUKuS8Vb eANjEDcnN912SAtjIqJ0 DUPhpuIlB2YfCRXrlXxj QcO6x3W2Gj8GXa21KE49 GH82hQKhp8E8fDZ7 B7JlFBEganzbirqvwYW6 RADjJTOxqM28Dt4atLhs Ym6uVQZnFAF8NUIufNNp D4BgbU9sKbMbIHNh BVYsP5BvjZYfKDmdS037 YRvyOvO8YHKjibXhQ4Zc TXLmnBebBcL7f6R1Mk4Q BDpipsv3W0IoFqyi dHI+ZK73ZKYjKK11zWEt yHDbp7srqEc0PfHmXCKr KAM8mMelRJeyg3DfSHZb S40vnDXgz7A6HBZn bGx (more content not included)... [facility] Coding Summary HTMLBase 64 DlvzjaemTHy2xLh+PGhl YWQ+WP7ZOBBlA58uaKVp nR3uB5WPLKzZGrjlBQAD ZEfWXjSoydVmFY8knKOe ZXJu IC8+NB5wZPQhNtetoGIy a6V6wVS9F42qwr1uKCsx hXZ5EJHwBbPvdzaba9gm qZu4AMxfHvsxWnUl UMRluG40YSI8dR12We95 yXCjjPYxc7bdqNx1UhRy ZFNvYHJ4eUtmRPltr2Xb OYFhM33iyNAin3F3 IGNvbGxhcHNlOyBlbXB0 eS2tXOopkfbve6dawecd Lki8zs58rIOct4L6cRC4 U6DjauH6JAPrxVPj QkcdkFLOvM3csnzyy6in hjtnCmOiFBDaICi1ZFw5 WGMteBoaKyOcHG90YIB2 NABeaoThM1QtEUPd lMbuMzT8w1N0Ou6HW9MM NfhhU2JCTDPONFnumVN+ EF40sr08F7UkYxnxSdq3 SRZaGII5gWO2hC2b OHHsZYwtf4V6eXJ3R3Ww rbKyft2ny7olZUGgMTej U58iqNBtt9F7BULvsIM0 MMYmaGwcRmHbkB96 Oyc+WPJtyDbsi3CzKqav k2jyz3hhsZh2EfuvNKAm eiUgbZldSBI1u2BnNa6h XHWhzER7eIE5jW2m MiJmJqM1JLlgR227CcUa zIArLzkuI79bI5TkvGG+ CSLjHqb6FYOdtQsbUI4q Z2XaNFTxytkxjTHi tRksLU4rRQAtxnrzLIIc oR2sUQAiJ7n5BcKcWcN7 NLyiX7IfFPNuwnqbVy29 iQ8bXdZsMeI2RPsj V6YsqvC6MTBzjHErTFcj ZAM3S03xj2P5GOGmUTOt BJF5jVK8aV2ysVbkvqgb bGVmdDsgdmVydGlj JLakUXlqV127AKElmAqy PkNvZGluZyBEYXRlOiAg MDQvMDMvMjAyNTwvdGQ+ IXJcKLX4zNviTHPq oICbIUxkHt9lgIoyqGdw BG3sVKCotnfyKRFjiZ0f JDNtoMWtnKveXU1rZFKz mmbzv569TkPqOFD0 MYKzjPMqJ8CnrT1gOaYt EASeJVMjJ4TpnMFcXYxp H584CMhqWcE2YUEwznUc U0JdPIXsmQhvOgE1 q5Q6Tr9Hb9VituybJ7En bTRdBxLuTxahULi8U8Ak PjwvdHI+JV06TCMhLX75 ODo3EWL1xXihRZij UEXpO2UkyN6fDzRgTIYu ZGRkOyc+PHRhYmxlIHdp ZHRoPScxMDAlJyBzdHls SK9fYq6nFZCrCHTn mKlknFFbItKzo7egOHJf NUmnQZ3ssJnmT4QugVC7 NDTtw6k7We57W01fW3Ab dXA+ZKCkeTY1kLS1 aR0nInDwBeZ2LPyjE993 CiKmvBMgAuatz8dcp5rv dZk2OiG9ZQBvbcJnjVhl AKP2e8PwKl34F81a IHdpZHRoPSIxNSUiIHZh mMkhke6mgL2mAt9+PGNv eCY0mET2hU6rLaMtGvT1 EZjkQ701UwRihHOe Uvyri5tvk0mthFv6PwUc IQJdftAacItyIWO5p4Dx Ty61D3MprGhax8ViHot1 jo43iTNtp8D3nHC5 J3DsLAMtqqfbtHIrrKib KV6uTKLoqgolGLNxuN9k GVHjF9e8VlMmHfN9ZZne M8EoayA0MJUbsISy HFZssFQCqB0qciwqe0pa ligwBqYyIPFdKXm1ITu9 YADxsIvfWtUaZDP2IlN5 OJO4mEHmkA6tsDsc qwaxzB5ySjt+PKH9wQRs wQEDLB6mNkedoMS+PHRk QRK0sSffSVrxWKWkaD9j LVFyV4b6DwMkWzB1 DUnpJ7YpanK3EWTdkGZj OEBbwIQSoL1juqvrd4tb bcehKrQrPXLvJZj0PMe2 LWFsaWduOiBsZWZ0 QcD5WFA6wUMnlI6tmXlg ptwwtR5vMav+QmlydGgg WVC3YOp2U0GaCvq2NOBj wNdqPN0gwJGdRYte Eo1gkPobsPeuNQ3tKTQv zotow552DvDkt6tgZOWg jFFzRHvfGZY4B13dt9G4 EILeVALzNLN6hOM1 mM5deIcblpmhoEMgpKoi azOreClvMYqiHDciH318 UACbcJcmZiMoRQw5Z9Pf Jao6MHBubXyyTV3h vJLdDQywBa9udZedqHoe IJ8rMDHvaiuhp711QwAx b0osGTLhcIPqMKoxGFT4 B91lg5H0HEJdUWEh CQE0dFQ0nZ8mrJotycva bGVmdDsgdmVydGljYWwt MLmaX965ACUcvCecUlUb qJt8B6ZjLqu2VDMf pPozFM2aeLAnKTnnTe8c vDpmhAflIZ7kXQQuedbn x734IiYnk2ttPQRyqHEd BLtvWIR5Q80bl7Y4 INJzLMXpLPP3gAU9fS4n bGlnbjogbGVmdDsgdmVy gVlhEWmrVOcmQ539LAMr cDsnPlBhdGllbnQg FZrqUKi8B3XlStrenWD+ AH25WLYsIL91jGWugRAp d8lajMw5WtHtKJGkIWZ5 bYesTAiat6PeKFCw K38ojCXyd0M2FFXuxJiw mDQlKjThdYG6tW9uUFmg jhcti3hfktutOtjca0az ds88wO86V04xPBsk ZHRoPSIzMCUiIHZhbGln qu9riZ9eMy9+PGNvbCB3 cOJ5pH9oUUNrIfE6IHcy G164MeSvpEBmHimt j2nes9cdnFp0ElK1VLFp qkWtlVzsENR1r1HlZh28 H62gVBxeTNLaAPKkABRc OISyjWfhij3sgZ9q Ii8+XIEmmMS8aIZ6tM1p JxQtTeR2FSujS707WbNv mUUrKureR85pC9ZnwHI+ KRReIqp8ONFlbOlw NA7sbUAoJNcgAo7mXUR8 NqSzWhVrDBtgH3FaUESo bkeqdgifvVJ3NPKtHIFa nS35Kk2yrMeyTSRz bGHGtQ6xevbdj3hlgxht YlSpPDCoLXj4LBu3VAGc vZlmYsSuDIU5MtK7CXI1 qPVwiP4csBkjfzwl vR3sM1CzWHOppnzlBk77 dG3wBoIoVrW4SKvvImd+ R6RWO5BHIQRETGQUSHQR QjwvdGQ+PHRkIHN0 gWobGSgcAUNzcP1vRTMw G8a7WdOqVtV5XEuoW5Kb BGJorivbIa06sN2xKjAa BcU8DLjxE8QoorR3 ZCBgzYQqPHbvWDX2U65j t7U4VTGvUUJsVZG8pMQ0 iJ5rpKhwnstvjLFawZrn dmVydGljYWwtYWxp E684PYVjhVbtFxH5UmB4 TtW5GRn9A9AgHxc1VDLx kTnbIA1lqYHuLTtfTq1k lFsysQslLZ4bGHJk ipmpSICgtL2jWOZqlUXd sIcnFQ7iGXFbpulzi355 FeSrJBZ8BIKquCXuX5Ia uQ8mIaEqTCCjXBKq H2WyeGMtJNrbT912LUtq LxS6HGOepkXjD4UgNRZi yYtxHlS4a3S3Bw3uQgCI ZWFyczwvdGQ+PHRk QMS8dRrmQNcvCFIroL3b LOGnS8y6SuZmNtO8POhf R0ZyESQayjjmAp34uA2x ZrKtUoR3INabO1Mr veZ0BJEziHMpNLjfRFR6 N42vp4F2UXQhIGWrPWJ5 iPE0xU8raXagyvkmhCUm dDsgdmVydGljYWwt EZqsG634FAWqvOetKe6L TNP8F8FdYlz9FLHlmJif NA8sdMBpZSkxPw1qyYby gIirUI5gDHCskjhk EZYbqU2lGPNqiOZxxAwn AE7rBEUrfpxuj085HdQs XIN6OFIdbLPmX7UxgQ3k UpPbJTDmFIZeW3Bo vJNtTWkpR563JVfvRjR9 LEQthjQjI0MrKNMfwHlx MmM8o5D6Og6LKIwewWR+ LR66ye25N8GjThdt Qbe6QQGeZZD7uWQ1wA3u OEDmWVgio3N9jFI3I2Xj vtNwcl9zk3vwVPBdVUeb V06qtKJno9Q6JFUl pMN0EWBocOrjEsRemD67 Oyc+CKQrfWnws7TpLbwj t9veq8upzBu6CrJjHOQh ckBbgJcoZYY4q5Jo Et12C06uNYtaZRIeINVj NUQjWTOzmMejko9veZ0m Ii8+JYAwrVN3lGO1lR8j NzQuDxU3TRhhD081 CdGjyGOrCuson7dyt9zx cZq2TkNjBUUwerBykEws PNF5r6CeWi66Q7FavSvz f9JnAiz8gs48jQQe v8F4fGA3Y1QpGATpzsng qIItlTyzLD9wYMXgdocy SBYekQ8iQPXrD1s7LxYl TlP9KGyxN7OeroJ5 UYXhbHWjQDUkbZBAuJ1j iksxg0pktvzvXoQiRHDf BBr4GGi8ZUVnaZcgBeLq YMM8RoN3BHS9nNRt pM1olLjpfkcahY7kPch+ HVk6z7luaGTvBT1rwHB5 BN25XF19nWBag1F6gXC5 V7SiXRJvhqopunzg zTR6VBRwRSWkmU06Ro3h cTatBk9uTTXdYXA1JTLo lSGgG5SzqZ0wKxKtHZDz ANXwX6GxiWLhIEmk Z222HXgzCnF4URVqgoDx V5FiKMUmtIivQhY9p0T7 Oh8NRX46LE88VW15zCJp g4O2xWK0H2EcLWEr mgpbqhcmoBH0YGCxJTAr zA51Qw2bmYpsHx8yIFFv LRJ6CZJscMVpK1EokO2a JvYcTTIoTZIhR4Fd fXWlMZdtS804QIrcIfS0 IXDopzSeY8SpGEYovWma NcP1b8W2Zd6KHt61KG76 CZ51mFUof4U4yGY1 D2GlRFXeylwwvjebcKY1 BOPgCKAmpA55Az4xbItp Fy8wFYCgNGR1LMXhaTSr I5JfpI7iAaNiBPAj LROiS4KlzZIiREapG062 URweMfS3NFTzyzMmM0Pa OGChxNjoOpS8e9L2Jt6X MSqwlxl7O1EzSsvt dHI+DB37YAMkMH54fJMa cFPes3swcTh5EwTbDXTf SIT6lMpvGLroq4SkOSTh O89nkUXhd2D1FEWt bGx (more content not included)... [facility] US LE Venous Duplex Lefton 0 07-02-2024 US LE Venous Duplex Left EXAMINATION: US LE Venous Duplex Left HISTORY: Phlebitis and thrombophlebitis of superficial vessels of left lower extremity COMPARISON: No relevant comparison available. FINDINGS: REGION: Left leg THROMBI: Heat induced and/or microfoam chemical ablation induced thrombus within superficial veins as expected. Thrombus distance from the saphenofemoral junction is 3 cm due to tortuosity of the vessel limiting a closer approach. No thrombus within the deep system. COMPRESSIBILITY: Non-compressibility of treated veins as expected. FLOW: Absent flow within the treated veins as expected. Normal waveform and antegrade flow within deep system. OTHER: None. IMPRESSION: 1. Successful post ablation occlusion of left anterior accessory saphenous vein. Final Dictated by: Jeremías Silveira MD Dictated DT/TM: 07/02/24 4:54 Signed (Electronic Signature): Jeremías Silveira MD 07/02/24 4:59 pm Technologist: [facility] Patient Handouton 06-24-2024 Patient Handout Endovenous Ablation, Care After The following information offers guidance on how to care for yourself after your procedure. Your health care provider may also give you more specific instructions. If you have problems or questions, contact your health care provider. What can I expect after the procedure? After the procedure, it is common to have: ? Bruising. ? Tenderness. Follow these instructions at home: Incision care ? Follow instructions from your health care provider about how to take care of your incision. Make sure you: ? Wash your hands with soap and water for at least 20 seconds before and after you change your bandage (dressing). If soap and water are not available, use hand slip cover estimator. ? Change your dressing as told by your health care provider. ? Follow instructions from your health care provider about when you should remove your dressing. ? Check your incision area every day for signs of infection. Check for: ? Redness, swelling, or pain. ? Fluid or blood. ? Warmth. ? Pus or a bad smell. ? Keep the dressing dry until your health care provider says it can be removed. Activity ? Avoid sitting for a long time without moving. Get up to take short walks every 1?2 hours. This is important to improve blood flow. Ask for help if you feel weak or unsteady. ? Rest as told by your health care provider. ? Do exercises as told by your health care provider. ? Return to your normal activities as told by your health care provider. Ask your health care provider what activities are safe for you. Driving ? If you were given a sedative during the procedure, it can affect you for several hours. Do not drive or operate machinery until your health care provider says that it is safe. ? Ask your health care provider if the medicine prescribed to you requires you to avoid driving or using machinery. General instructions ? Raise (elevate) your legs above the level of your heart while you are sitting or lying down. ? Take azfg-wbc-vaweqmk and prescription medicines only as told by your health care provider. ? Do not take long car trips or travel by air until your health care provider has approved. ? Wear compression stockings as told by your health care provider. These stockings help to prevent blood clots and reduce swelling in your legs. ? Do not use any products that contain nicotine or tobacco. These products include cigarettes, chewing tobacco, and vaping devices, such as e-cigarettes. These can delay incision healing after the procedure. If you need help quitting, ask your health care provider. ? Keep all follow-up visits. This is important. Contact a health care provider if you have: ? A fever. ? More redness, swelling, or pain at the site of your incision. ? Fluid or blood coming from your incision. ? Warmth at the incision area. ? Pus or a bad smell coming from your incision. Get help right away if: ? You notice red streaks coming from the incision. ? You develop nausea or vomiting. ? You have trouble breathing. ? You develop chest pain. Summary ? Follow instructions from your health care provider about how to take care of your incision. ? Avoid sitting for a long time without moving. Get up to take short walks every 1?2 hours. ? Wear compression stockings as told by your health care provider. These stockings help to prevent blood clots and reduce swelling in your legs. ? Contact a health care provider if you have more redness, swelling, or pain at the site of your incision. ? Keep all follow-up visits. This is important. This information is not intended to replace advice given to you by your health care provider. Make sure you discuss any questions you have with your health care provider. Document Revised: 09/01/2021 Document Reviewed: 09/01/2021 [employer] Patient Education ? 2023 [employer] Procedures Endovenous Ablation, Care After The following information offers guidance on how to care for yourself after your procedure. Your health care provider may also give you more specific instructions. If you have problems or questions, contact your health care provider. What can I expect after the procedure? After the procedure, it is common to have: ? Bruising. ? Tenderness. Follow these instructions at home: Incision care ? Follow instructions from your health care provider about how to take care of your incision. Make sure you: ? Wash your hands with soap and water for at least 20 seconds before and after you change your bandage (dressing). If soap and water are not available, use hand slip cover estimator. ? Change your dressing as told by your health care provider. ? Follow instructions from your health care provider about when you should remove your dressing. ? Check your incision area every day for signs of infection. Check for: ? Redness, swelling, or pain. ? Fluid or blood. ? Warmth. ? Pus or a bad smell. ? K (more content not included)... Normal [facility] US Endovenous Ablation 1st V maggi 06-24-2024 US Endovenous Ablation 1st Vein EXAMINATION: US Endovenous Ablation 1st Vein HISTORY: Varicose veins of bilateral lower extremities with pain The risks and benefits of the procedure had been previously discussed, and were rediscussed at length. Informed written consent was obtained. Basilio Linn RN and Angelina Shannon RDMS, RVT assisted. Time out procedure was performed. The left lower extremity was prepared and draped in the usual sterile fashion to allow knee flexion in the sterile field. Duplex ultrasound probe was draped in a sterile cover; sterile transmission gel was used. Venous mapping was performed with the areas of dilation and large tributaries marked. The total length was 6 cm from the entry proximal thigh to 3 cm below the Saphenofemoral junction. The diameter of the left anterior accessory saphenous vein ranged from 6.6 mm. A 30 gauge needle and 1% buffered lidocaine was used to anesthetize the entry site. A 4 mm incision was made with a scalpel and the saphenous vein was entered percutaneously under direct ultrasound guidance with a micropuncture set, a single stick was successful in gaining access. A micro-guide wire was inserted and the needle removed. A micro-set including a dilator was inserted over the microwire and the needle and dilator were removed. A guide wire was inserted through the micro-set and guided through the saphenous vein to the saphenofemoral or saphenopopliteal junction. The dilator was removed and an introducer sheath was inserted over the wire until the end of the sheath entered the saphenofemoral or saphenopopliteal junction. The dilator and wire was removed and the 600 micron fiber was introduced and placed and positioned so that it extended beyond the sheath and was 3 cm distal to the saphenofemoral or saphenopopliteal junction. Final position of the fiber was determined by ultrasound guidance and duplex imaging. Tumescent anesthetic was delivered by ultrasound guidance. 20 cc of fluid was delivered along the entire course of the saphenous vein. The solution consisted of 1000 cc of normal saline with 40 mL of 1% lidocaine and 20 mL of sodium bicarbonate. A final positioning check was made. The energy source was turned on by means of the foot pedal and the fiber and sheath were withdrawn appropriately. The total number of Joules delivered was 1057. The laser was active for 30 seconds under continuous pulse; average laser use of 8 J. Laser start time: 1:24 PM Laser stop time: 1:27 PM Date: 06/24/2024. A duplex ultrasound revealed compressibility and flow at the saphenofemoral or saphenopopliteal junction immediately after the procedure. Hemostasis at the access site was achieved. The skin incision of the saphenous vein was closed with a 4 x 4. A compression stocking was applied. Postop instructions were given. A follow up appointment was recommended and scheduled. The patient tolerated the procedure well. Final Dictated by: Jeremías Silveira MD Dictated DT/TM: 06/24/24 2:00 Signed (Electronic Signature): Jeremías Silveira MD 06/24/24 2:01 pm Technologist: [facility] US LE Venous Duplex Bilatera mellisa 06-23-2024 US LE Venous Duplex Bilateral EXAMINATION: US LE Venous Duplex Bilateral HISTORY: Phlebitis of superficial veins of both lower extremities COMPARISON: No relevant comparison available. TECHNIQUE: Duplex imaging of the lower extremity/extremitie s to assess the deep and superficial venous system for the presence of deep or superficial venous incompetence and to document the location and severity of disease. The study includes evaluation of the great saphenous vein (GSV), anterior accessory saphenous vein (AASV), and small saphenous vein (SSV). Patient scanned in reverse Trendelenburg And standing positions. 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 Final Dictated by: Maryam Jordan MD Dictated DT/TM: 06/24/24 5:08 Signed (Electronic Signature): Maryam Jordan MD 06/24/24 5:11 am Technologist: [facility] Outside Recordson 05-26-2024 Outside Records [id number] #1.00[facility] Outside Records [id number] [facility] Rad - Other Radiology Report on 05-26-2024 Rad - Other Radiology Report [id number] [facility] Rad - Other Radiology Report [id number] [facility] MR KNEE LEFT WO IV CONTRASTo n [...] Comment: MRI L T knee w/o at [facility]. Orbits if needed. Eval for meniscus tear. XR Knee - left 1 or 2 Viewso n 12-20-2023 Imaging Result: December 19, 2013 x-rays AP weight-bearing bilateral knees and lateral of the left knee demonstrate open joint spaces without collapse. No areas of vzzs-nk-wfsw. No sclerosis. No fractures detected. Neutral alignment. Impression: No acute findings on x-rays of the left knee Trace Levy D.O. [facility] Radiology Study observation (narrative) [facility] XR Knee - left 1 or 2 ViewsO rdered By: Anthony Levy on 12-20-2023 [facility] Work Phone: SURGICAL PATHOLOGYOrdered By : Tara Wilkinson on 06-13-2023 Case Report Surgical Pathology Report Case: [id number] Authorizing Provider: Anthony Mejia MD Collected: 06/12/2023 09:40 AM Ordering Location: Ambulatory Surgery Received: 06/12/2023 10:31 PM Pathologist: Tara Wilkinson MD Specimens: A) - DUODENUM BIOPSY B) - RECTAL POLYP, x2 [facility] Work Phone: FINAL DIAGNOSIS f3ohhSZsGARvrZJpRECh XZkzbkMmQQBejMLsG5Wt kzctFCeuCO1mGX8kmKbt kAYgiPAzSHAzRgRcr6lv o555bYNos5naTDOIcipn uPy3fWwsN75rz9N1Lhdm F78zkMJlEJY5MDLfMMHh gAJcFZTqYZH8JJAhkRHa O1zhJDYzZT1wqocgBWak ZKcfDFKegKQ7IAXvbEVw G1UvQVIzXZknIDEhnab4 EbIwJz7ngCWnkKpwSKvj YXJkXHBsYWluXGZzMjAg GO2nYKW5a3ZatfTlXKKx sF2aq9d7APKcibEiCPF4 v9HwqtUyYV90M58bKMI0 oGTqMS4mIIGiC81zSgbx FN94LAAmQOsbz8U7eFQr BGb9XREjoXxejk0vuEGk SP9yMk2wAQOtASDgF6Tr w0VfT5OnaMPfWPQbh0Ji b8Cjv7VmQBHaRUHyzMJi gn1thLPyRIEnchRQNiGy UmVjdGFsIHBvbHlwIHgg LhzwFlyocRL3GodfHZWl DMOZfwMlvHYklCVxq3Ac aHlwZXJwbGFzdGljIHBv bHlwLlxwYXJ9 [facility] Work Phone: Gross Description n8gbtYJgLVVegWFZAIJ5 JORsNO6riFgteMy7gBgj DKTooqE3kEUsMInnn5cf YFD9u7zetgFQIfwkZCNd AM1xKZwrPWDxNT7rSsGr XGRlZmYxXHBhcGVydzEy WrFlPKXtiJRtxNQ7IDGh BD4rchhgVCthUYimCEBn teI0QDYycRIdK7GcRXEk VP7aqdkfHCU5RXSEQofh Bk6wwUHkcMupMfZkSgAk HDMbYBMlTPJdg1jixwUN xafwjXs8kA3CDOWqR0Ai SE5Qf7lsOWSirZZjEGT5 TMkbc7yjLGksNKE7CFNj DOBhOOMfDW1TZnWdKGJ9 MXxzCYN0TgE4BSk5WJES IQXiLJFePmA9YSZaSIo8 OTkgXFxuaCBcXHQgMSBc FGYqFSgtkmW9k2ovTQPp tHMyWIN2MYmqa1hkFFuz YUC6JCByJiEcFEWtZY3W LkHbJYP8CHjeZRM7QoQ0 PQk6GICQUfBjJsEdDJq1 SnIvIzVxUSp0PDr5PSyY EpRtAoT3QyNsTqjaJoH2 NDYyNyBcXHQgMiBcXHNz LZAvRHlxhLKhZO2leLqa YWNdPN5JCKQeUAivBHAo HdOdIX0mRPPXKNXTCO6c PolDGGUVDNc5ooIqOCYm wwNALhpvRACuEE9HBGLq SUpxPJd9rrQzDDNyIrCh PMLoU91ia0WKp5WcGS4K JYp5aaHccanvRQXbDLGf rDTTf3QqMMGKKtqsevGd ZVMiK4GvvbNeUPknFIZk kw7jhNlrHJ1kVEwexIzo RCSpOPUnoXt0lBFgFGOt fSZzUUCnb4KzvBRrZNMq o7T4BGXse4K9FASlV8yn EYklvCncHaS8caVaQzBw xYDrJrEssTApQxPbM52g UOAwkQJshEouo5DaxSz9 dTDhCAgdHK2xJCMiMAGm FZH9UG5VEjlxcLxlNmSe aGPkIvQ3PMZkqURmQNI4 ND9jmWwcDXOgOOl3GCst VBXkG5UpQ7ZcEFkiTcCu XGlkIDUxMDAyIFxcZGIg L5BTWVIfXCo8RTXdMiOx FEg7RSa5CZ2LRtDxKJF7 LNC5MiGpVmZiZYn2YAwa ZT5ARFAwXkB1KNU0SMh4 VAD4RmU6JLayzWWlXFzo e6InMkEfMPAhRIneahX5 NUSamxMsb3IxFVPuQUEz N8maYyAsSVCPIyofozLy ZIVqELGIC8ACHAFET8vT UFxwYXIgDQpccGFyZCAN ClxwbGFpblxsdHJjaFxm yfSmXGDzhYMPOPA9FI6q CJHWUhpkbKDpJRAkp8Ky MFxlcGljWHNiMzAgDQpc ZnMyMCBSZWNlaXZlZCBp iyMpi5EePKwvweDfzkGb TLM7GWUlrbBdiMtbVMGv IKZqdcBoEaO0MQ6wrO0s bPCsMJJsv0leBHFev2T5 XLKvt8A0KRKtA7zjFXyv mFsqBnL0axYtYxAjfKVo YrRxgNPbPgMcK35wSVFp fKQduZgbg1SsxHb5yNXt BPljYY1xRRVpHRIaEEN9 KP4eOYWpbuPUJamrAEMr CQw2axBaubIOKewnTXGr PMrTVoJJKWJtpEY4MQWp RXT7AVI1XCGfYE0lpSPo MS2ZZOWksoPIXmgmORLo WWRshZUJk7AbGXSCPxgt q6UiLKA1IR8psfG6cW5f HMXwgqKmdh0mUVZmeDBY kHY6GSjhjoJnI7jtogky ZMF4PRFtEIW6Z8mxKIKF erZdQLPPoGH7JFkuziNh ZJ7HFSO3QSl4TQheNFHt Q99hm6TQh8Rgt0cplVhk r0EcgNWxZK83BHQsfTWi SFR2OD9enXuxIQIePLwi bFDaRGHZLdaheeGlLO0D fQ== [facility] Work Phone: Performing Lab v8zcvEFrRXLhyBGbHmBd LURhSGVvx9aiJRQnzFYt ZzEwMzNcZnRuYmpcdWMx ZVSnJvIxf8frf860tTXh c0zzOHAnKnG0bVJeEXLe hTDhY812BTWpFFizb2aj p2OzJDSvoECku8F8TFFM yrlnnZb0sMfcR65rc7N0 IihiW4ekQTTgOWDnS4Wt JU1xVYUyEfr9ROQ9CIR9 SHWeDZEyU1GaOP8hOETv vSUiVKs5y2fuzZfrCDJi FLG9k2xkWYajpqCiQK6y vw3yqWp2b7sqenDqNZJb RRWwbTJEMRXqT4HjpZvq Qf6ilIy2gKmvJccqAAU8 Kzm8YU9bhl71trp6eNkm RJBpggipLmT7EZakSPTj gzlwSAl2SLmrCKBonSH9 WNKdbMMlV6BrUVuoYI0i bso4KRR5YZqzTUFrKmG0 NDBcaGVhZGVyeTcyMFxm g574YPW7RtHxZR4mL3Ll s8B3bJ4bgFClZKFtbGBb PcJdNOEdac1beWZmGAsm k9NvLBK9aaU8yZPvfENo WTZzWD11Ibkwu8KtGhls o7JgI36uhNG8ADkod6hd EK0iHqS1ayHiJAqnd7jv dR2sKhH8GCgdBB8wGH9h AQXazN4cwbvxSWBwAjCk yptkUVMtzPtxedFkFk7r xGusNKG5MBunF6isoW9y AaH5SCreW2awtA1uJNo0 YThjwLO9IKYtjF8wLH7c hnrpw1ixVVgdPSpbNIYj omF1utTwMJVigCRhF5Fy iU4vSOZkXB6jqgxok1iy IEB3RHmeUUNbJMG1TcTh GVKnc9Sgsai9LzJiy3Ub yKBbEPzpI87qa878LRUk dzTeZ0pozHQcklxtmPNy hmicNTogytL5ITPxDXIs YWluXGYxXGZzMjJcbGFu ZzEwMzNcaGljaFxmMVxk RkEiLZIzFZldS6vwKtRa GdRpAoXGxPJxie9wzHsi IRluqBHqdXDmqFF6pZ7b OVKpapGdcu9qYKDnzSVY mBA6QPthpvOvE0bvyhut NPN0DGUmNRQ2B7pkXBGF dmUsIENsZXZlbGFuZCBP SBM4AAC8OSKwFHWDHWXu PHI3EYX0KABjSTKkdQAy XHBhclxwYXJkXHBsYWlu JGUxKDSxGwEobRyiyO5f YxRuOeHmWbvaYG7nWNBv C6wmvWGpZWXvGUNfV5ff JjCkyS3ngQreEIeoRtGh ZnMyMlxsdHJjaCBMYWJv yuG7d0H0BEdzqXNnhtzq MVxmczIyXGxhbmcxMDMz UZfqS9qwSnUeNTSyhQvd BPnso7RpUPXiIBKhDdXj INhiJMB0i5S2XUwubAFt ffGBKcRVJJ9bsVOsjqeg IL6IBlgyTVO2 [facility] Work Phone: [facility] Work Phone: ANES POSTPROC EVALon 024 ANES POSTPROC EVAL HNO ID: [id number] Author: YULIANA AGUILAR APRN.STEM SIZER Service: ? Author Type: Nurse Preschool Program Director Type: Anesthesia Postprocedure Evaluation Filed: 06/12/2023 10:09 Note Text: POST ANESTHESIA EVALUATION NOTE : 1985 Procedure Summary Date: 06/12/23 Room / Location: Ambulatory Surgery Anesthesia Start: 927 Anesthesia Stop: 1004 Procedures: EGD DIAGNOSTIC COLONOSCOPY DIAGNOSTIC Diagnosis: Gastroesophageal reflux disease, unspecified whether esophagitis present Rectal bleeding (Established esophageal reflux) Scheduled Providers: Anthony Mejia MD; Jennyfer Faria RN; Margo Szymanski Tech; Yuliana Aguilar APRN.STEM SIZER Responsible Provider: Yuliana Aguilar APRN.CRNA Anesthesia Type: MAC ASA Status: 2 Anesthesia [...] Anesthesia Observations No Documentation SIGNATURE: Yuliana Aguilar APRN.STEM SIZER PATIENT NAME: Rufino Wadsworth DATE: June 12, 2023 TIME: 10:09 AM CSN: [id number] Normal [facility] ANES PRE-OPon 06-12-2023 ANES PRE-OP HNO ID: [id number] Author: YULIANA AGUILAR APRN.STEM SIZER Service: ? Author Type: Nurse Preschool Program Director Type: Anesthesia Preprocedure Evaluation Filed: 06/12/2023 09:26 Note Text: ANESTHESIOLOGY DAY OF SURGERY NOTE : 1985 Procedure Information Date/Time: 06/12/2345 Scheduled providers: Anthony Mejia MD; Jennyfer Faria RN; Margo Szymanski Tech; Yuliana Aguilar APRN.STEM SIZER Procedures: EGD DIAGNOSTIC COLONOSCOPY DIAGNOSTIC Location: Ambulatory [...] and consent discussed: yes. Patient / Responsible Green Party agrees to proceed: yes Patient / [...] 48 hours of Surgery/Procedure. SIGNATURE: Yuliana Aguilar APRN.CRNA PATIENT NAME: Rufino Wadsworth DATE: June 12, 2023 TIME: 9:25 AM CSN: [id number] Normal [facility] Colonoscopyon 06-12-2023 Colonoscopy [facility] Gastroenterology Gastrointestinal Endoscopy Patient Name: Rufino Wadsworth Procedure Date: 06/12/2023 9:50 AM Date of : 1985 Admit Type: Outpatient Age: 37 Room: [facility] Gender: Male Note Status: Finalized Attending MD: Anthony Mejia MD, [id number] Procedure: Colonoscopy Indications: Hematochezia, Constipation Providers: Anthony [...] bowel preparation was evaluated using the BBPS ([place] Bowel Preparation Scale) with scores of: Right [...] 3-4 months. Procedure Code(s): --- Professional --- 07252, Colonoscopy, flexible; with biopsy, single or multiple Diagnosis Code(s): --- Professional --- K64.1, Second degree hemorrhoids D12.8, Benign neoplasm of rectum K92.1, Melena (includes Hematochezia) K59.00, Constipation, unspecified CPT copyright 2020 [employer]. All rights reserved. The codes documented in this report are preliminary and upon information coder review may be revised to meet current compliance requirements. Scope In: 9:51:16 AM Scope Out: 10:05:06 AM MD Anthony Ibrahim MD 06/12/2023 10:12:23 AM This report has been signed electronically by Anthony Mejia MD Number of Addenda: 0 Note Initiated On: 06/12/2023 9:50 AM Estimated Blood Loss: Estimated blood loss was minimal. Normal [facility] EGD Study observation Narrat mariola 06-12-2023 [facility] Gastroenterology Gastrointestinal Endoscopy Patient Name: Rufino Wadsworth Procedure Date: 06/12/2023 9:34 AM Date of : 1985 Admit Type: Outpatient Age: 37 Room: [place] [address] Gender: Male Note Status: Finalized Attending MD: Anthony Mejia MD, [id number] Procedure: Upper GI endoscopy Indications: Esophageal reflux, [...] mg daily. Procedure Code(s): --- Professional --- 44332, Esophagogastroduoden oscopy, flexible, transoral; with biopsy, single or multiple Diagnosis Code(s): --- Professional --- K22.89, Other specified disease of esophagus K21.9, Gastro-esophageal reflux disease without esophagitis CPT copyright 2020 [employer]. All rights reserved. The codes documented in this report are preliminary and upon information coder review may be revised to meet current compliance requirements. Scope In: 9:39:05 AM Scope Out: 9:44:26 AM MD Anthony Ibrahim MD 06/12/2023 9:49:35 AM This report has been signed electronically by Anthony Mejia MD Number of Addenda: 0 Note Initiated On: 06/12/2023 9:34 AM Estimated Blood Loss: Estimated blood loss was minimal. [facility] Radiology Study observation (narrative) [facility] Flexible sigmoidoscopy study on 06-12-2023 [facility] Gastroenterology Gastrointestinal Endoscopy Patient Name: Rufino Wadsworth Procedure Date: 06/12/2023 9:50 AM Date of : 1985 Admit Type: Outpatient Age: 37 Room: [place] [address] Gender: Male Note Status: Finalized Attending MD: Anthony Mejia MD, [id number] Procedure: Colonoscopy Indications: Hematochezia, Constipation Providers: Anthony [...] bowel preparation was evaluated using the BBPS (Hinton Bowel Preparation Scale) with scores of: Right [...] 3-4 months. Procedure Code(s): --- Professional --- 61021, Colonoscopy, flexible; with biopsy, single or multiple Diagnosis Code(s): --- Professional --- K64.1, Second degree hemorrhoids D12.8, Benign neoplasm of rectum K92.1, Melena (includes Hematochezia) K59.00, Constipation, unspecified CPT copyright 2020 [employer]. All rights reserved. The codes documented in this report are preliminary and upon information coder review may be revised to meet current compliance requirements. Scope In: 9:51:16 AM Scope Out: 10:05:06 AM MD Anthony Ibrahim MD 06/12/2023 10:12:23 AM This report has been signed electronically by Anthony Mejia MD Number of Addenda: 0 Note Initiated On: 06/12/2023 9:50 AM Estimated Blood Loss: Estimated blood loss was minimal. [facility] Radiology Study observation (narrative) [facility] NURSING PROGon 06-12-2023 NURSING PROG HNO ID: [id number] Author: SRUTHI ANDRADE RN Service: ? Author [...] Andrade RN In Department: AMBULATORY SURGERY Normal [facility] NURSING PROG HNO ID: [id number] Author: ROSY QUIROGA RN Service: Gastroenterology Author [...] Quiroga RN In Department: AMBULATORY SURGERY Normal [facility] SURGICAL PATHOLOGYon 024 CASE REPORT Normal [facility] Comment on above: Order Comment: Speci men Type: TISSUE SPECIMEN Ordering Facility: [facility] Address: [address] [place] [address] Result Comment: Surg ica Pathology Report Case: [id number] Authorizing Provider: Anthony Mejia MD Collected: 06/12/2023 09:40 AM Ordering Location: Ambulatory Surgery Received: 06/12/2023 10:31 PM Pathologist: Tara Wilkinson MD Specimens: A) - DUODENUM BIOPSY B) - RECTAL POLYP, x2 Performed By: #### S #### [facility] CLIA [id number] [address] [place], [place] [address] [place] FINAL DIAGNOSIS Normal [facility] Comment on above: Order Comment: Speci men Type: TISSUE SPECIMEN Ordering Facility: [facility] Address: [address] [place] [address] Result Comment: ASherly D uodenum, biopsy: - Duodenal mucosa with no significant diagnostic alteration. - No evidence of celiac disease or duodenitis. B. Rectal polyp x 2, biopsy: - Fragments of hyperplastic polyp. Performed By: #### S #### [facility] CLIA [id number] [address] [place] [address] [place] FINAL PERFORMING LAB Normal [facility] Comment on above: Order Comment: Speci men Type: TISSUE SPECIMEN Ordering Facility: [facility] Address: [address] [place] [address] Result Comment: Diag nostic interpretation performed at [facility], [address] [place] [address] CLIA# [id number] Junior Administrative Assistant: Vikram Enriquez M.D. Performed By: #### S #### [facility] CLIA [id number] [address] [place] [address] [place] GROSS DESCRIPTION Normal [facility] Comment on above: Order Comment: Speci men Type: TISSUE SPECIMEN Ordering Facility: [facility] Address: [address] [place] [address] Result Comment: A. D UODENUM BIOPSY Received [...] 2023 1:04 AM Gross examination performed at [facility], [address] [place] [address] Performed By: #### S #### [facility] CLIA [id number] [address] [place] [address] [place] Upper GI endoscopyon 03-05-2 024 Upper GI endoscopy [facility] Gastroenterology Gastrointestinal Endoscopy Patient Name: Rufino Wadsworth Procedure Date: 06/12/2023 9:34 AM Date of : 1985 Admit Type: Outpatient Age: 37 Room: [place] [address] Gender: Male Note Status: Finalized Attending MD: Anthnoy Mejia MD, [id number] Procedure: Upper GI endoscopy Indications: Esophageal reflux, [...] mg daily. Procedure Code(s): --- Professional --- 86158, Esophagogastroduoden oscopy, flexible, transoral; with biopsy, single or multiple Diagnosis Code(s): --- Professional --- K22.89, Other specified disease of esophagus K21.9, Gastro-esophageal reflux disease without esophagitis CPT copyright 2020 [employer]. All rights reserved. The codes documented in this report are preliminary and upon information coder review may be revised to meet current compliance requirements. Scope In: 9:39:05 AM Scope Out: 9:44:26 AM MD Anthony Ibrahim MD 06/12/2023 9:49:35 AM This report has been signed electronically by Anthony Mejia MD Number of Addenda: 0 Note Initiated On: 06/12/2023 9:34 AM Estimated Blood Loss: Estimated blood loss was minimal. Normal [facility] CNPNon 06-01-2023 CNPN Telephone ([facility]) RUFINO WADSWORTH ([id number]) 1985 Date Time Provider Department 06/01/23 BRANDON TSE [facility] During your visit today, we recorded the [...] If you do not have a responsible shuttle driver (family member or friend) with you to take you home, your exam cannot be done with sedation and will be cancelled. Please bring a list of all of your current medications, including any Yvvh-ryy-Nqgvcig medications with you. Medications If you take [...] Date: 06/01/2023 (more content not included)... Normal [facility] HISTORY PHYSICALon HISTORY PHYSICAL HNO ID: [id number] Author: BRANDON TSE APRN.DIRECTOR OF INTERCOLLEGIATE ATHLETICS Service: ? Author Type: Nurse Practitioner Type: [...] hematochezia. Past Clinical Work-Up: LAST BRANDON TSE APRN.DIRECTOR OF INTERCOLLEGIATE ATHLETICS 03/14/2023 ASSESSMENT/PLAN: Mr. Wadsworth is a 37 [...] daily I spent more than 30 minutes pzuo-ig-rnpn with the patient and over half the time was devoted to counseling and/or coordination of care. This note was dictated using [employer] speech recognition software and may contain some errors that were a result of the program not accurately transcribing what was dictated. I have communicated my name and active licensure. The patient's identity and physical location were verified at the time of this visit. Either the patient or their legal district sales representative has been informed of the risks and benefits of -- and alternat (more content not included)... Normal [facility] XR foot RT min 3V*on 023 XR foot RT min 3V* [facility] Main [place] [address] [place], [place] [id number] XRay Report Signed Patient: Rufino Wadsworth MR#: [id number] : 1985 Acct:[id number] Age/Sex: 37 / M ADM Date: 11/05/22 [...] Impression dictated by: Chele De Paz Jr., D.O.11/05/2022 3:52 PM Dictation Location: [facility] [address] Transcribed By: [facility] 11/05/22 1552 Dictated By: Chele De Paz Jr DO 11/05/22 1550 Signed By: 11/05/22 1552 [facility] SARS-CoV-2 (COVID-19) RNA NA A+probe Ql (Resp)on 09-19-2021 SARS-CoV-2 (COVID-19) RNA SHU+probe Ql (Unsp spec) Positive [facility] Other Vital Signs Date Time Vital Sign Value Performing Clinician Facility 06-12-2023 10:31-0500 Diastolic blood pressure 65 mm[Hg] Anthony Mejia MD Work Phone: [facility] 06-12-2023 10:31-0500 Heart rate 70 /min Anthony Mejia MD Work Phone: [facility] 06-12-2023 10:31-0500 Respiratory rate 28 /min Anthony Mejia MD Work Phone: [facility] 06-12-2023 10:31-0500 SaO2% (BldA) [Mass fraction] 95 % Anthony Mejia MD Work Phone: [facility] 06-12-2023 10:31-0500 Systolic blood pressure 121 mm[Hg] Anthony Mejia MD Work Phone: [facility] 06-12-2023 09:09-0500 Body height 190.5 cm Anthony Mejia MD Work Phone: [facility] 06-12-2023 09:09-0500 Body mass index (BMI) [Ratio] 26.87 kg/m2 Anthony Mejia MD Work Phone: [facility] 06-12-2023 09:09-0500 Body weight 97.52 kg Anthony Mejia MD Work Phone: [facility] 11-05-2022 15:07-0400 Body height 190.5 cm MD Jacqueline Owens Work Phone: [facility] 11-05-2022 15:07-0400 Body temperature 98 [degF] MD Jacqueline Owens Work Phone: [facility] 11-05-2022 15:07-0400 Body weight 101.55 kg MD Jacqueline Owens Work Phone: [facility] 11-05-2022 15:07-0400 Diastolic blood pressure 80 mm[Hg] MD Jacqueline Owens Work Phone: [facility] 11-05-2022 15:07-0400 Heart rate 78 /min MD Jacqueline Owens Work Phone: [facility] 11-05-2022 15:07-0400 Respiratory rate 18 /min MD Jacqueline Owens Work Phone: [facility] 11-05-2022 15:07-0400 SaO2% (BldA) [Mass fraction] 98 % MD Jacqueline Owens Work Phone: [facility] 11-05-2022 15:07-0400 Systolic blood pressure 138 mm[Hg] MD Jacqueline Owens Work Phone: [facility] 09-19-2021 11:35-0400 Body height 187.96 cm Terese Duff Other [facility] Other 09-19-2021 11:35-0400 Body mass index (BMI) [Ratio] 27.6 kg/m2 Terese Duff Other [facility] Other 09-19-2021 11:35-0400 Body temperature 98.4 [degF] Terese Duff Other [facility] Other 09-19-2021 11:35-0400 Body weight 97.52 kg Terese Duff Other [facility] Other 09-19-2021 11:35-0400 Respiratory rate 18 /min Terese Duff Other [facility] Other 09-19-2021 11:35-0400 SaO2% (BldA) [Mass fraction] 99 % Terese Duff Other [facility] Other Encounters Encounter Date Encounter Type Care Provider Facility Start: 08-14-2024 ambulatory Maryam Jordan Facility: [facility] Start: 08-05-2024 End: 08-05-2024 ambulatory Maryam VSherly Bowbells Facility:[facility] Start: 07-02-2024 End: 07-02-2024 ambulatory Maryam VSherly Bowbells Facility:[facility] Start: 06-24-2024 ambulatory Maryam VSherly Bowbells Facility: [facility] Start: 06-23-2024 End: 06-23-2024 ambulatory Maryam VSherly Bowbells Facility:[facility] Start: 05-26-2024 End: 05-26-2024 ambulatory Maryam VSherly Bowbells Facility:[facility] Start: 05-07-2024 End: 05-07-2024 ambulatory [facility] Facility:[facility] Start: 05-07-2024 End: 05-07-2024 Telemedicine consultation with patient Chet Beyer RESTAURANT RECRUITER.DIRECTOR OF INTERCOLLEGIATE ATHLETICS Work Phone: Telemedicine Comment on above: Viral upper respirat ory tract infection with cough (Primary Dx) Start: 02-22-2024 End: 02-22-2024 ambulatory CATIE CARRILLO Not Available Start: 01-31-2024 End: 01-31-2024 Office outpatient visit 10 minutes Catie Carrillo NP Work Phone: [facility] Comment on above: Internal derangement of left knee (Primary Dx); Left knee pain, unspecified chronicity Start: 01-31-2024 End: 01-31-2024 ambulatory CATIE CARRILLO Not Available Start: 01-31-2024 End: 01-31-2024 Bamboo flowsheet Catie Carrillo MICROBIOLOGICAL ANALYST Work Phone: [facility] Start: 01-31-2024 End: 01-31-2024 Bamboo flowsheet Catie Carrillo NP Work Phone: [facility] Start: 12-20-2023 End: 12-20-2023 Bamboo flowsheet Catie Carrillo MICROBIOLOGICAL ANALYST Work Phone: [facility] Start: 12-20-2023 End: 12-20-2023 Bamboo flowsheet Catie Carrillo MICROBIOLOGICAL ANALYST Work Phone: [facility] Start: 12-20-2023 End: 12-20-2023 Office outpatient visit 25 minutes Catie Carrillo MICROBIOLOGICAL ANALYST Work Phone: [facility] Comment on above: Internal derangement of left knee (Primary Dx); Left knee pain, unspecified chronicity Start: 12-20-2023 End: 12-20-2023 ambulatory CATIE CARRILLO Not Available Start: 08-21-2023 Get Medical Advice Brandon kiser RESTAURANT RECRUITER.DIRECTOR OF INTERCOLLEGIATE ATHLETICS Work Phone: Gastroenterology Comment on above: Pantoprazole - Refil l Start: 06-20-2023 Refill Brandon Tse RESTAURANT RECRUITER.DIRECTOR OF INTERCOLLEGIATE ATHLETICS Work Phone: Gastroenterology Comment on above: Refill Request Start: 06-12-2023 End: 06-12-2023 ambulatory YULIANA AGUILAR Facility:[facility] Start: 06-12-2023 End: 06-12-2023 Subsequent hospital visit by physician Anthony Mejia MD Work Phone: Ambulatory Surgery Comment on above: Gastroesophageal ref lux disease, unspecified whether esophagitis present [K21.9] Start: 06-06-2023 ambulatory [facility] Provider Cammy rhoades Comment on above: TWO DAY COLONOSCOPY PREP INSTRUCTIONS Start: 06-06-2023 E-mail encounter fro m caregiver [facility] Start: 06-05-2023 ambulatory Nurse Meghan [facility] Work Phone: Gastroenterology Comment on above: EGD instructions Start: 06-05-2023 E-mail encounter fro m caregiver Nurse Meghan [facility] Work Phone: [facility] Start: 06-01-2023 Telephone encounter Brandon Pac k RESTAURANT RECRUITER.DIRECTOR OF INTERCOLLEGIATE ATHLETICS Work Phone: Gastroenterology Start: 05-31-2023 ambulatory Brandon Pack RESTAURANT RECRUITER.DIRECTOR OF INTERCOLLEGIATE ATHLETICS Work Phone: Gastroenterology Comment on above: Still Having Issues Start: 05-29-2023 End: 05-29-2023 ambulatory Brandon Pack RESTAURANT RECRUITER.DIRECTOR OF INTERCOLLEGIATE ATHLETICS Work Phone: Gastroenterology Comment on above: Gastroesophageal ref lux disease, unspecified whether esophagitis present (Primary Dx); Constipation, unspecified constipation type Start: 05-29-2023 End: 05-29-2023 Telemedicine consultation with patient Brandon Pack RESTAURANT RECRUITER.DIRECTOR OF INTERCOLLEGIATE ATHLETICS Work Phone: [facility] Start: 03-31-2023 End: 03-31-2023 ambulatory AMADA BLEVINS Not Available Start: 03-14-2023 End: 03-14-2023 ambulatory Brandon Pack RESTAURANT RECRUITER.DIRECTOR OF INTERCOLLEGIATE ATHLETICS Work Phone: Gastroenterology Comment on above: Gastroesophageal ref lux disease, unspecified whether esophagitis present (Primary Dx) Start: 03-14-2023 End: 03-14-2023 Telemedicine consultation with patient Brandon Pack RESTAURANT RECRUITER.DIRECTOR OF INTERCOLLEGIATE ATHLETICS Work Phone: [facility] Start: 11-05-2022 End: 11-05-2022 Emergency department patient visit Cheyanne Montaño Facility:[facility] Start: 11-05-2022 End: 11-05-2022 Emergency department patient visit MD Jacqueline Owens Work Phone: [facility] Work Phone: Start: 05-24-2022 End: 05-25-[address] MARYAM JORDAN Facility:[facility] Start: 04-27-2022 End: 08-06-[address] MARYAM JORDAN Facility:[facility] Start: 09-19-2021 End: 09-19-2021 ambulatory Terese Duff Other [facility] Other Start: 09-19-2021 Office outpatient vi sit 15 minutes Terese Duff [facility] Procedures Date Procedure Procedure Detail Performing Clinician Start: 12-20-2023 Radiologic examination knee 1/2 views Catie Carrillo NP Work Phone: Start: 06-12-2023 Colonoscopy flx dx w/collj spec when pfrmd Brandon Pack RESTAURANT RECRUITER.DIRECTOR OF INTERCOLLEGIATE ATHLETICS Work Phone: Start: 06-12-2023 Level iv surg pathology gross&microscopic exam Anthony Mejia MD Work Phone: Start: 06-12-2023 Esophagogastroduodenoscopy transoral diagnostic Brandon Pack RESTAURANT RECRUITER.DIRECTOR OF INTERCOLLEGIATE ATHLETICS Work Phone: Start: 11-05-2022 X-ray of right foot MD Jacqueline Owens Work Phone: Plan of Treatment Date Care Activity Detail Author Start: 11-05-2032 Urine microalbumin profile [facility] Start: 01-31-2024 End: 01-31-2024 Patient encounter procedure [...] EDT Office Visit [facility] [address] [place] [address] Catie Carrillo, MICROBIOLOGICAL ANALYST [address] [place] [address] Left knee pain, unspecified chronicity [facility] Comment on above: Left knee pain, unsp ecified chronicity Start: 12-09-2023 Covid-19 Vaccine ( season) Covid-19 Vaccine ( season) [facility] Start: 12-09-2023 Covid-19 Vaccine ( season) Covid-19 Vaccine ( season) [facility] Start: 12-09-2023 Influenza vaccination [facility] Start: 04-09-2023 Behavioral Health Screening Behavioral Health Screening [facility] Start: 04-09-2023 [facility] Start: 12-08-2022 Covid-19 Vaccine ( season) Covid-19 Vaccine ( season) [facility] Start: 12-08-2022 Influenza vaccination Influenza Vacc ine (#1) [facility] Start: 07-16-2022 Lipid 1996 panel - Serum or Plasma Lipid Screening [facility] Start: 07-16-2022 Lipid panel Lipid Screening [facility] Start: 04-09-2022 Depression Assessment [facility] Start: 07-16-2005 Anxiety Screening Anxiety Screening [facility] Start: 07-16-2005 Depression Screening Depression Scre [facility] Start: 07-16-2005 Hepatitis C Screening Hepatitis C [facility] Start: 07-16-2005 Hepatitis C screening Hepatitis C [facility] Start: 07-16-2005 HIV Screening HIV Screening [facility] Start: 07-16-2005 HIV screening HIV Screening [facility] Start: 1987 Hepatitis B Vaccine (1 of 3 - 3-dose series) Hepatitis B Vaccine (1 of 3 - 3-dose series) [facility] Start: 1987 Medicare Annual Wellness (AWV) Medicare Annual Wellness (AWV) [facility] End: 05-29-2024 EGD DIAGNOSTIC EGD DIAGNOSTIC Endoscopy Routine Gastroesophageal reflux disease, unspecified whether esophagitis present 1 Occurrences starting 05/29/2023 until 05/29/2024 [facility] Work Phone: Comment on above: 1 Occurrences starti ng 05/29/2023 until 05/29/2024 End: 06-01-2024 Flexible sigmoidoscopy study COLONOSCOPY DIAGNOSTIC Endoscopy Routine Rectal bleeding 1 Occurrences starting 06/01/2023 until 06/01/2024 [facility] Work Phone: Comment on above: 1 Occurrences starti ng 06/01/2023 until 06/01/2024 Patient Education Laceration Rep air With Stitches ED Wound Care ED Toe Fracture ED [facility] Work Phone: Patient referral [facility] Work Phone: [facility] Immunizations Immunization Date Immunization Notes Care Provider Jas hernandez 11-05-2022 tetanus toxoid, redu teja diphtheria toxoid, and acellular pertussis vaccine, adsorbed MD Jacqueline Owens Work Phone: [facility] 02-17-2022 influenza, injectabl e, quadrivalent, preservative free Catie Carrillo NP Work Phone: [facility] 02-17-2022 influenza virus vaccine, unspecified formulation Brandon Tse APRN.CNP Work Phone: [facility] 01-29-2020 influenza, injectabl e, quadrivalent, preservative free Catie Carrillo NP Work Phone: [facility] Payers Date Payer Category Payer Private Health Insurance [id number] 2011 Managed Care HMO (unspecified) [id number] 2011 Medicaid [employer] MEDICARE A DVANTAGE [id number] 5 1987 Unknown [id number] .[id number] 1987 Unknown [id number] [id number] .2.593 1987 Unknown [id number] [id number] .2.1258 1987 Unknown [id number] [id number] .2.1258 1987 Unknown [id number] [id number] .2.1258 1987 Unknown [id number] 2.16.840.1.759035.3.579 .2.9 1987 Unknown [id number] [id number] .2.1258 1987 Unknown [id number] [id number] .2.718 1987 Unknown [id number] [id number] .2.718 1987 Unknown [id number] [id number] .2.718 1987 Unknown [id number] 2.16.840.1.920423.3.579 .2. 1987 Unknown [id number] 2.16.840.1.491451.3.579 .2.8 1987 Unknown [id number] [id number] .2. 1987 Unknown [id number] [id number] .2.718 1959 Private Health Insurance [id number] 1959 Self-pay Unknown [id number] [id number] .2.531 Unknown [facility] [id number] Social History Date Type Detail Facility Unknown if ever smoked [facility] Other Start: 03-14-2023 End: 05-07-2024 Sex Assigned At [employer] Other Start: 11-05-2022 End: 06-12-2023 Tobacco smoking status IDIS Never smoked tobacco (finding) [facility] Start: 1985 Sex Assigned At Male [facility] Tobacco smoking status [facility] Tobacco smoking consumption unknown [facility] Start: 03-14-2023 End: 05-07-2024 History of Social function [facility] National Score (1-100), lower number is lower risk 59 [facility] Start: 1987 Sex Assigned At Not on file C [facility] Start: 06-12-2023 Tobacco use and exposure User of smokeless tobacco [facility] Start: 06-12-2023 End: 05-07-2024 Alcohol intake Current drinker of alcohol (finding) [facility] Start: 06-12-2023 Tobacco Comment Has never smoked [facility] Start: 06-12-2023 Alcohol Comment 3-4 drinks twice a w burns paiute [facility] Start: 11-16-2022 Tobacco use and exposure Smokeless tobacco non-user [facility] Start: 04-09-2023 Alcohol Comment caffeine intak e : 1-2 cups per day ; coffee [facility] Clinical Notes 09-19-2021 to 08-11-2024 Patient InstructionsChet Beyer, RESTAURANT RECRUITER.DIRECTOR OF INTERCOLLEGIATE ATHLETICS - 05/07/2024 5:24 PM Paul Carrillo NP - 01/31/2024 2:45 PM Mayra Carrillo NP - 12/20/2023 11:00 AM Sruthi Rodriguez RN - 06/12/2023 10:09 AM EST Note Date & Type Note Facility 08-11-2024 Note Radiology Sclerotherapy Sclerotherapy is a procedure that is done to make varicose veins and spider veins look better and it helps to relieve aching, swelling, cramping, and pain in the legs. Varicose veins are veins that have become enlarged, bulging, and twisted due to a damaged valve that causes blood to collect (pool) in the veins. Spider veins are small varicose veins. Sclerotherapy is usually done on the legs where varicose and spider veins occur most of the time. Sclerotherapy usually works best for smaller spider and varicose veins. This procedure involves putting a chemical directly into the lining of the vein, causing it to swell and stick together. Over time, the vessel turns into scar tissue that fades from view. You may need more than one treatment to close a vein all the way. The number of veins treated in one session depends on the size and location of the veins, and on your overall medical condition. Tell a health care provider about: ? Any allergies you have. ? All medicines you are taking, including vitamins, herbs, eye drops, creams, and maod-ulz-wujmbcy medicines. ? Any bleeding problems you have. ? Any surgeries you have had. ? Any medical conditions you have. ? Whether you are or may be . What are the risks? Your health care provider will talk with you about risks. These may include: ? Infection. ? Bleeding or blood clots. ? Allergic reactions to medicines or to the chemicals being used, which are called sclerosing agents. ? Larger treated veins becoming lumpy or hard. This may last for several months before getting better. ? Small sores (ulcers) forming at the injection site. ? Red streaking in the groin area or bruising around the injection site. ? Brown lines or spots at the injection site. These usually disappear within 3 to 6 months, but in rare cases they can be permanent. What happens before the procedure? Medicines Ask your health care provider about: ? Changing or stopping your regular medicines. These include any diabetes medicines or blood thinners you take. ? Taking medicines such as aspirin and ibuprofen. These medicines can thin your blood. Do not take them unless your health care provider tells you to. ? Taking adhw-fog-takfjyz medicines, vitamins, herbs, and supplements. Tests ? You may have an ultrasound of the affected area to check for blood clots and to check blood flow. ? In rare cases, you may have an X-ray procedure to check how blood flows through your veins (angiogram). For an angiogram, a dye is injected to highlight your veins on X-rays. General instructions ? Do not use lotions or creams on your legs before the procedure unless your health care provider approves. ? Follow instructions from your health care provider about what you may eat and drink. ? Do not use any products that contain nicotine or tobacco before the procedure. These products include cigarettes, chewing tobacco, and vaping devices, such as e-cigarettes. If you need help quitting, ask your health care provider. ? Ask your health care provider what steps will be taken to help prevent infection. These steps may include: ? Removing hair at the injection site. ? Washing skin with a soap that kills germs. What happens during the procedure? ? The treatment area will be cleaned. ? A small, thin needle is used to inject a chemical (sclerosant) into your varicose or spider veins. The sclerosant will irritate the lining of the vein and cause the vein to close below where the needle was put in. You may feel some stinging, burning, or irritation. ? The injection may be repeated for more than one varicose or spider vein. ? After the procedure, the area around where the needle was put in will be wrapped with elastic bandages. The procedure may vary among health care providers and hospitals. What can I expect after the procedure? ? Your blood pressure, heart rate, breathing rate, and blood oxygen level will be monitored until you leave the hospital or clinic. ? The area around the injection site will be wrapped with elastic bandages. If there is bleeding, the bandages may be changed. ? After the treatment, you will be able to drive yourself home. ? Wear compression stockings as told by your health care provider. These stockings help to prevent blood clots and reduce swelling in your legs. Contact a health care provider if: ? You have more redness, swelling, or pain around any injection sites. ? You have more fluid or blood coming from any injection sites. ? Any injection sites feel warm to the touch. ? You have pus or a bad smell coming from any injection sites. ? You have a fever. Get help right away if: ? You have leg pain that gets worse when you walk. ? You have redness or swelling in your leg that is getting worse. ? You have trouble breathing. ? You have chest pain. These symptoms may be an emergency. Get help right away. Call 911. (more content not included)... [facility] 08-05-2024 Note PROCEDURE: US Inject ion Varicose Vein Multiple COMPARISON: None. HISTORY: Varicose veins of bilateral lower extremities with pain Pre-operative Diagnosis: CEAP class C4a venous insufficiency with pain, tenderness, edema and incompetent left varicose and saphenous vein(s), chronic venous insufficiency left leg secondary to venous incompetence Post-operative Diagnosis: CEAP class C4a venous insufficiency with pain, tenderness, edema and incompetent left varicose and saphenous vein(s), chronic venous insufficiency left leg secondary to venous incompetence Procedure Performed: 1. Ultrasound-guided microfoam chemical ablation with Varithenaregistered 2. Intraoperative ultrasound guidance Anesthesia: None Indications for Procedure: 39-year-old male who presents with a long history of lower extremity pain and swelling resulting in hemosiderin staining. The patient failed conservative medical therapy including medical compression stockings, exercise and analgesics. Prior procedures include intervenous laser ablation. Multiple incompetent varicosities of the left leg. Duplex scan showed reflux and enlarged diameters up to 5 mm. The patient underwent informed consent including management options where the complications of infection, bleeding, pain, and skin injury were discussed. Particular attention was spent discussing thrombus extension and deep vein thrombosis as well as the possibility of pulmonary embolus and treatment with oral or injectable blood thinners. Procedure: The patient walked to the procedure room. All applicable staff donned appropriate apparel. A procedure timeout was performed to confirm correct patient, correct extremity, correct procedure, and correct room set-up including presence of all applicable supplies, devices, and drugs. A duplex ultrasound, performed by myself confirmed the location and incompetence of branch saphenous varicosities and their course was marked on the skin together with the dilated tributaries. The extent of treatment of the vein and the associated varicosities was determined through ultrasound mapping. The skin was prepped and then punctured with a butterfly needle and advanced under ultrasound guidance. The Varithenaregistered canister was activated and the canister was primed and purged as required in the instructions for use. Varithenaregistered was drawn into a sterile syringe. The following injections were made: 8 cc injected into a 5 mm varicose vein distal anterior left lower leg 7 cc injected into a 5 mm varicose vein proximal medial left lower leg Varithenaregistered was slowly administered at 0.5-1.0 cc/second with close observation by ultrasound of its course in the vessels. Total volume utilized was: 15 cc. Following administration of Varithenaregistered the leg was elevated and the patient was asked to repeatedly dorsiflex the ankle to limit flow of Varithenaregistered into perforating veins. Once appropriate spasm had been confirmed in the treated veins, the vascular catheter was removed from the leg and light pressure was applied over the puncture site for hemostasis. The common femoral and deep superficial veins were then evaluated for flow and compressibility prior to dressing placement. The lower extremity was kept elevated at 45 degrees above the horizontal and cording material was applied over the saphenous segments and tributaries to allow for eccentric compression over the target vessels including the targeted saphenous vein(s). A multilayer dressing was applied consisting of foam pads, coban and thigh-high 20-30 mm Hg compression elastic support hose were placed on the patient. The leg was lowered only after compression had been applied and the patient was immediately ambulatory. The patient ambulated 10 minutes under supervision and was without apparent concerns at time of release. Post-care instructions include advising patient to keep post-treatment bandages in place and dry for 48 hours, avoid extended periods of inactivity, avoid heavy exercise for one week, wear compression stockings on the treated leg continuously for two weeks, to walk daily for 10 minutes over the next month. The patient was instructed to take an anti-inflammatory medicine as needed and to follow up for color duplex scan of the Saphenous veins, the treated branch saphenous varicosities, the adjacent deep veins, and additional treatment within 7 days. PERSONNEL: Basilio Linn RN Final Dictated by: Maryam Jordan MD Dictated DT/TM: 08/05/24 4:59 Signed (Electronic Signature): Maryam Jordan MD 08/05/24 5:07 pm Technologist: [facility] 07-01-2024 Note Sclerotherapy Sclerotherapy is a procedure that is done to make varicose veins and spider veins look better and it helps to relieve aching, swelling, cramping, and pain in the legs. Varicose veins are veins that have become enlarged, bulging, and twisted due to a damaged valve that causes blood to collect (pool) in the veins. Spider veins are small varicose veins. Sclerotherapy is usually done on the legs where varicose and spider veins occur most of the time. Sclerotherapy usually works best for smaller spider and varicose veins. This procedure involves putting a chemical directly into the lining of the vein, causing it to swell and stick together. Over time, the vessel turns into scar tissue that fades from view. You may need more than one treatment to close a vein all the way. The number of veins treated in one session depends on the size and location of the veins, and on your overall medical condition. Tell a health care provider about: ? Any allergies you have. ? All medicines you are taking, including vitamins, herbs, eye drops, creams, and gkfh-yew-xlbfcaj medicines. ? Any bleeding problems you have. ? Any surgeries you have had. ? Any medical conditions you have. ? Whether you are or may be . What are the risks? Your health care provider will talk with you about risks. These may include: ? Infection. ? Bleeding or blood clots. ? Allergic reactions to medicines or to the chemicals being used, which are called sclerosing agents. ? Larger treated veins becoming lumpy or hard. This may last for several months before getting better. ? Small sores (ulcers) forming at the injection site. ? Red streaking in the groin area or bruising around the injection site. ? Brown lines or spots at the injection site. These usually disappear within 3 to 6 months, but in rare cases they can be permanent. What happens before the procedure? Medicines Ask your health care provider about: ? Changing or stopping your regular medicines. These include any diabetes medicines or blood thinners you take. ? Taking medicines such as aspirin and ibuprofen. These medicines can thin your blood. Do not take them unless your health care provider tells you to. ? Taking jays-vzy-ucqdztl medicines, vitamins, herbs, and supplements. Tests ? You may have an ultrasound of the affected area to check for blood clots and to check blood flow. ? In rare cases, you may have an X-ray procedure to check how blood flows through your veins (angiogram). For an angiogram, a dye is injected to highlight your veins on X-rays. General instructions ? Do not use lotions or creams on your legs before the procedure unless your health care provider approves. ? Follow instructions from your health care provider about what you may eat and drink. ? Do not use any products that contain nicotine or tobacco before the procedure. These products include cigarettes, chewing tobacco, and vaping devices, such as e-cigarettes. If you need help quitting, ask your health care provider. ? Ask your health care provider what steps will be taken to help prevent infection. These steps may include: ? Removing hair at the injection site. ? Washing skin with a soap that kills germs. What happens during the procedure? ? The treatment area will be cleaned. ? A small, thin needle is used to inject a chemical (sclerosant) into your varicose or spider veins. The sclerosant will irritate the lining of the vein and cause the vein to close below where the needle was put in. You may feel some stinging, burning, or irritation. ? The injection may be repeated for more than one varicose or spider vein. ? After the procedure, the area around where the needle was put in will be wrapped with elastic bandages. The procedure may vary among health care providers and hospitals. What can I expect after the procedure? ? Your blood pressure, heart rate, breathing rate, and blood oxygen level will be monitored until you leave the hospital or clinic. ? The area around the injection site will be wrapped with elastic bandages. If there is bleeding, the bandages may be changed. ? After the treatment, you will be able to drive yourself home. ? Wear compression stockings as told by your health care provider. These stockings help to prevent blood clots and reduce swelling in your legs. Contact a health care provider if: ? You have more redness, swelling, or pain around any injection sites. ? You have more fluid or blood coming from any injection sites. ? Any injection sites feel warm to the touch. ? You have pus or a bad smell coming from any injection sites. ? You have a fever. Get help right away if: ? You have leg pain that gets worse when you walk. ? You have redness or swelling in your leg that is getting worse. ? You have trouble breathing. ? You have chest pain. These symptoms may be an emergency. Get help right away. Call 911. ? Do not wa (more content not included)... [facility] 05-07-2024 Instructions Chet Beyer APRN.DIRECTOR OF INTERCOLLEGIATE ATHLETICS - 05/07/2024 5:32 PM EST Images from [...] or previously boiled and cooled water per system trainer's instructions). Would recommend bringing the solution up [...] outside corner of the right eye. 5. [place] one spray only. Take a sniff as [...] days. Most often you should use the frnl-xzm-jfppcxm symptomatic treatment/s that your health care provider [...] Sinusitis Patient Education What is Sinusitis? Sinusitis [hozv-oud-pymv-tis] is inflammation of the sinuses or swelling [...] help. You may be instructed to take pqhn-uqe-dsslnfw medications for symptoms. including fever reducers acetaminophen or ibuprofen, nasal saline spray, cough and cold preparations and decongestants as prescribed by the physician, nurse practitioner or physician health care assistant. Self-Care and Prevention: Rest Fluids for hydration Good hand washing Humidifier Avoid smoking and exposure to second hand smoke Avoid sick contacts documented in this encounter [facility] 05-07-2024 Note HNO ID: [id number] Author: CHET BEYER APRN.HILARY Service: ? Author Type: Nurse Practitioner Type: Progress Notes Filed: 05/07/2024 17:33 Note Text: Telemedicine Evaluation for an Illness MyChart Zoom Video Visit was used for evaluation of this patient. I have communicated my name and active licensure. The patient's identity and physical location were verified at the time of this visit. Either the patient or their legal district sales representative has been informed of the risks and benefits of -- and alternatives to -- treatment through a remote evaluation and consents to proceed with the evaluation remotely. SUBJECTIVE Rufino Wadsworth is a 38 year old male who [...] URI. Recommended continued symptomatic treatments and monitoring. Chet Beyer APRN.DIRECTOR OF INTERCOLLEGIATE ATHLETICS - Discussed symptom monitoring and supportive care - Red flag symptoms requiring follow up discussed [facility] 05-07-2024 History of Present illness Narrative Telemedicine Evaluation for an Illness MyChart Zoom Video Visit was used for evaluation of this patient. I have communicated my name and active licensure. The patient's identity and physical location were verified at the time of this visit. Either the patient or their legal district sales representative has been informed of the risks and benefits of -- and alternatives to -- treatment through a remote evaluation and consents to proceed with the evaluation remotely. SUBJECTIVE Rufino Wadsworth is a 38 year old male who [...] URI. Recommended continued symptomatic treatments and monitoring. Chet Beyer APRN.HILARY - Discussed symptom monitoring and supportive care - Red flag symptoms requiring follow up discussed documented in this encounter [facility] 01-31-2024 History of Present illness Narrative Images from the original note [...] develop for requiring urgent evaluation. Catie Carrillo RESTAURANT RECRUITER-DIRECTOR OF INTERCOLLEGIATE ATHLETICS documented in this encounter [facility] 12-20-2023 History of Present illness Narrative Images from the original note [...] HS. Pt is active. Prior tx: XR [facility] 12/20/23, TYL, IBU, ice, knee brace ALLERGIES: [...] joint spaces without collapse. No areas of zkdj-bo-rbec. No sclerosis. No fractures detected. Neutral alignment. [...] develop for requiring urgent evaluation. Catie Carrillo RESTAURANT RECRUITER-DIRECTOR OF INTERCOLLEGIATE ATHLETICS documented in this encounter [facility] 08-21-2023 Telephone encounter Note EGD/Colonoscopy 06/12/23 Distance Health Visit 05/29/23 [facility] 08-21-2023 Miscellaneous Notes EGD/Colonoscopy 06/12/23 Distance Health Visit 05/29/23 documented in this encounter [facility] 06-20-2023 Miscellaneous Notes Last distance health visit 05/29/23. EGD/Colonoscopy 06/12/23. documented in this encounter [facility] 06-12-2023 Nurse Note POST OP LEARNING RESPONSE INSTRUCTION PROVIDED TO: Patient METHOD OF INSTRUCTION: Written instruction - handouts Verbal instruction PATIENT / FAMILY RESPONSE: Information received as demonstrated by interest and questions FOLLOW-UP PLAN: Patient instructed to call with any further issues SUPPLEMENTAL MATERIAL: None REFERRAL (RECOMMENDATION): None Electronically Signed By: Sruthi Andrade RN In Department: AMBULATORY SURGERY [facility] 06-12-2023 Nurse Note POST OP LEARNING RESPONSE [...] Department: AMBULATORY SURGERY documented in this encounter [facility] 06-12-2023 Attending History and physical note Exam: Abdomen soft, positive bowel sounds, NT, ND. Lungs CTA Cardiac RRR without murmur or gallop with normal S1 and S2. Neuro: Alert and oriented x 3 with engineering technician parking 2-12 intact. EGD and colonoscopy with risks of bleeding, perforation, reaction to anesthesia, infection discussed with informed consent obtained. Source Note - Pack, DILIA Donaldson.DIRECTOR OF INTERCOLLEGIATE ATHLETICS - 05/29/2023 2:40 PM EST DISTANCE HEALTH [...] hematochezia. Past Clinical Work-Up: LAST BRANDON TSE APRN.DIRECTOR OF INTERCOLLEGIATE ATHLETICS 03/14/2023 ASSESSMENT/PLAN: Mr. Wadsworth is a 37 [...] daily I spent more than 30 minutes tybr-pn-nqlf with the patient and over half the time was devoted to counseling and/or coordination of care. This note was dictated using 9GAG speech recognition software and may contain some errors that were a result of the program not accurately transcribing what was dictated. I have communicated my name and active licensure. The patient's identity and physical location were verified at the time of this visit. Either the patient or their legal district sales representative has been informed of the risks and benefits of -- and alternatives to -- treatment through a remote evaluation and consents to proceed with the evaluation remotely. Brandon Tse APRN.HILARY [facility] 06-12-2023 History and physical note Exam: Abdomen soft, positive bowel sounds, NT, ND. Lungs CTA Cardiac RRR without murmur or gallop with normal S1 and S2. Neuro: Alert and oriented x 3 with engineering technician parking 2-12 intact. EGD and colonoscopy with risks of bleeding, perforation, reaction to anesthesia, infection discussed with informed consent obtained. Source Note - Brandon Tse APRN.CNP - 05/29/2023 2:40 PM EST DISTANCE HEALTH [...] DH BRANDON TSE APRN.CNP 03/14/2023 ASSESSMENT/PLAN: Mr. Wadsworth is a 37 [...] daily I spent more than 30 minutes gpjv-fe-pyzm with the patient and over half the time was devoted to counseling and/or coordination of care. This note was dictated using 9GAG speech recognition software and may contain some errors that were a result of the program not accurately transcribing what was dictated. I have communicated my name and active licensure. The patient's identity and physical location were verified at the time of this visit. Either the patient or their legal district sales representative has been informed of the risks and benefits of -- and alternatives to -- treatment through a remote evaluation and consents to proceed with the evaluation remotely. Brandon Tse APRN.HILARY documented in this encounter [facility] 06-12-2023 Nurse Note PRE OP LEARNING ASSESSMENT [...] Rosy Quiroga RN In Department: AMBULATORY SURGERY [facility] 06-08-2023 Miscellaneous Notes I did try to call the patient to review 2 day prep instructions. No answer. I had to leave a message. I did send the 2 day colonoscopy prep instructions via [employer]. Office number provided. Thank you Kaya Myers LPN documented in this encounter [facility] 06-01-2023 Instructions Brandon Tse APRN.CNP - 06/01/2023 [...] If you do not have a responsible shuttle driver (family member or friend) with you to take you home, your exam cannot be done with sedation and will be cancelled. Please bring a list of all of your current medications, including any Nnkl-qlq-Mrbbxwk medications with you. Medications If you take [...] 3 hours before your exam. 2 03/2019 documented in this encounter [facility] 06-01-2023 Miscellaneous Notes Called patient to discuss MyChart message. Left message to call back. Brandon Tse APRN.HILARY documented in this encounter [facility] 06-01-2023 Miscellaneous Notes Called and spoke with patient. No consistent [...] on toilet paper. documented in this encounter [facility] 05-29-2023 Instructions Brandon Tse APRN.HILARY - 05/29/2023 2:48 PM EST Thank you for seeing me in clinic today. As we discussed, my recommendations are as follows: 1.MiraLAX 1 capful daily 2.EGD If you have any questions about the above treatment plan, please do not hesitate to call the office or send me a MyChart message. Please try to adhere to the [...] safe by your primary care provider or corporate travel manager. SMOKERS: Stop smoking PPI users: Take your [...] irritate the stomach. documented in this encounter [facility] 05-29-2023 History and physical note DISTANCE HEALTH VISIT This Team Access [...] DH BRANDON TSE APRN.CNP 03/14/2023 ASSESSMENT/PLAN: Mr. Wadsworth is a 37 [...] daily I spent more than 30 minutes vvtt-gg-wolb with the patient and over half the time was devoted to counseling and/or coordination of care. This note was dictated using 9GAG speech recognition software and may contain some errors that were a result of the program not accurately transcribing what was dictated. I have communicated my name and active licensure. The patient's identity and physical location were verified at the time of this visit. Either the patient or their legal district sales representative has been informed of the risks and benefits of -- and alternatives to -- treatment through a remote evaluation and consents to proceed with the evaluation remotely. Brandon Tse APRN.CNP documented in this encounter [facility] 03-14-2023 Instructions Brandon Tse APRN.CNP - 03/14/2023 [...] safe by your primary care provider or corporate travel manager. SMOKERS: Stop smoking PPI users: Take your [...] irritate the stomach. documented in this encounter [facility] 03-14-2023 History and physical note DISTANCE HEALTH VISIT This Team Access [...] RELEASE I spent more than 25 minutes xhsw-ij-nren with the patient and over half the time was devoted to counseling and/or coordination of care. This note was dictated using 9GAG speech recognition software and may contain some errors that were a result of the program not accurately transcribing what was dictated. I have communicated my name and active licensure. The patient's identity and physical location were verified at the time of this visit. Either the patient or their legal district sales representative has been informed of the risks and benefits of -- and alternatives to -- treatment through a remote evaluation and consents to proceed with the evaluation remotely. Brandon Tse APRN.CNP documented in this encounter [facility] 09-19-2021 Evaluation note Encounter Date Diagnosis Assessment [...] care provider if no improvement of symptoms. [facility] Other Evaluation noteNo assessment information available [facility] Work Phone: Evaluation note* Diagnosis Gastroesophageal reflux disease, unspecified whether esophagitis present- Primary [facility] Gastroesophageal reflux disease, unspecified whether esophagitis present- Primary Constipation, unspecified constipation type [facility] Diagnosis Rectal bleeding- Primary Hemorrhage [...] [facility] Diagnosis Internal derangement of left knee- Primary Left knee pain, unspecified chronicity documented in this encounter [facility]* Diagnosis Internal derangement of left knee- Primary Left knee pain, unspecified chronicity documented in this encounter [facility] Healthcare[facility] note* Diagnosis Viral upper respiratory tract infection with cough- Primary Acute upper respiratory infections of unspecified site documented in this encounter [facility] general Narrative - Reported* Type Description Date Surgical History HERNIA REPAIR [facility] Other Hospital Discharge instructions Additional Instructions Take [...] care I gave you numbers close to [place] Return to an ER for redness swelling fever chills purulent drainage or any [facility] Work Phone: Reason for referral (narrative)* Outpatient Procedure (Routine) - Authorized Specialty Diagnoses / Procedures Referred By River kee Referred To Contact [facility] Diagnoses Gastroesophageal reflux disease, unspecified whether esophagitis present Procedures EGD DIAGNOSTIC ESOPHAGOGASTRODUODENOSC OPY TRANSORAL DIAGNOSTIC Brandon Tse APRN.CNP [address] [facility] [place] [address] [facility] Disease [address] [address] Referral ID Status Reason Start Date Expiration Date Visits Requested Visits Authorized [id number] Authorized Auto-Generat ed Referral 05/29/2023 05/29/2024 1 1 [facility] for referral (narrative)* Outpatient Procedure (Routine) - Authorized Specialty Diagnoses / Procedures Referred By River kee Referred To Contact [facility] Diagnoses Rectal bleeding Procedures COLONOSCOPY DIAGNOSTIC COLONOSCOPY FLX DX W/COLLJ SPEC WHEN PFRMD Brandon Tse APRN.CNP [address] [facility] [place] [address] [facility] Disease [place] [address] [place] [address] Referral ID Status Reason Start Date Expiration Date Visits Requested Visits Authorized [id number] Authorized Auto-Generat ed Referral 06/01/2023 06/01/2024 1 1 [facility] for referral (narrative)* Outpatient Procedure (Routine) - Closed Specialty Diagnoses / Procedures Referred By Contac t Referred To Contact [facility] Diagnoses Rectal bleeding Procedures COLONOSCOPY DIAGNOSTIC COLONOSCOPY FLX DX W/COLLJ SPEC WHEN PFRMBrandon Mauricio APRN.CNP [address] [place] [address] [address] Referral ID Status Reason Start Date Expiration Date V isits Requested Visits Authorized [id number] Closed Auto-Generate d Referral 06/01/2023 06/01/2024 1 1 * Outpatient Procedure (Routine) - Closed Specialty Diagnoses / Procedures Referred By Contac t Referred To Contact [facility] Diagnoses Gastroesophageal reflux disease, unspecified whether esophagitis present Procedures EGD DIAGNOSTIC ESOPHAGOGASTRODUODENOSC OPY TRANSORAL DIAGNOSTIC Brandon Tse APRN.CNP [address] [place] [address] [address] Referral ID Status Reason Start Date Expiration Date V isits Requested Visits Authorized [id number] Closed Auto-Generate d Referral 05/29/2023 05/29/2024 1 1 [facility] for visit Narrative* Outpatient Procedure (Routine) - Closed Specialty Diagnoses / Procedures Referred By Contac t Referred To Contact [facility] Diagnoses Rectal bleeding Procedures COLONOSCOPY DIAGNOSTIC COLONOSCOPY FLX DX W/COLLJ SPEC WHEN PFRMBrandon Mauricio APRN.CNP [address] [place] [address] [facility] [address] [place] [address] Referral ID Status Reason Start Date Expiration Date V isits Requested Visits Authorized [id number] Closed Auto-Generate d Referral 06/01/2023 06/01/2024 1 1 [facility] Summary Purpose Family History No Family History Records FoundNo Family History Records FoundNo Family History Records FoundNo Family History Records FoundNo Family History Records Found Advance Directives No Advanced Directives Records Found Advance Directive Response Recorded Date/ Time Advance [...] and content) DATE CREATED AUTHOR 08/05/2022 [facility] DATE CREATED AUTHOR AUTHOR'S ORGANIZ ATION 11/05/2022 [facility] DATE CREATED AUTHOR AUTHOR'S ORGANIZ ATION 02/27/2024 [facility] EPIC DATE CREATED AUTHOR AUTHOR'S ORGANIZ ATION 05/09/2024 [facility] DATE CREATED AUTHOR AUTHOR'S ORGANIZ ATION 09/17/2024 [facility] Care Teams (unrecognized sec tion and content) Team Status: Active Member Role Status Dates Jacqueline Owens MD Primary Care Provider Active Team Status: Inactive Member Role Status Dates Jacqueline Owens MD Primary Care Provider Active Cheyanne Montaño , [facility] Emergency Provider Active Range Scientist Relationship Specialty Start Date End Date Jacqueline Owens MD [address] [place] [address] PCP - General Family Medicine 11/07/22 Range Scientist Relationship Specialty Start Date End Date Jacqueline Owens MD [address] [place] [address] PCP - General Family Medicine 11/07/22 Range Scientist Relationship Specialty Start Date End Date Jacqueline Owens MD [address] [place] [address] PCP - General Family Medicine 11/07/22 Range Scientist Relationship Specialty Start Date End Date Jacqueline Owens MD [address] [place] [address] PCP - General Family Medicine 11/07/22 Goals [...] or prosecute any alcohol or drug abuse patient.[facility] the event this information is protected by the Federal Confidentiality of Alcohol and Drug Abuse Patient Records regulations: The Federal rules restrict any use of the information to criminally investigate or prosecute any alcohol or drug abuse patient.[facility] the event this information is protected by the Federal Confidentiality of Alcohol and Drug Abuse Patient Records regulations: The Federal rules restrict any use of the information to criminally investigate or prosecute any alcohol or drug abuse patient.[facility] the event this information is protected by the Federal Confidentiality of Alcohol and Drug Abuse Patient Records regulations: The Federal rules restrict any use of the information to criminally investigate or prosecute any alcohol or drug abuse patient.[facility] the event this information is protected by the Federal Confidentiality of Alcohol and Drug Abuse Patient Records regulations: The Federal rules restrict any use of the information to criminally investigate or prosecute any alcohol or drug abuse patient.[facility] the event this information is protected by the Federal Confidentiality of Alcohol and Drug Abuse Patient Records regulations: The Federal rules restrict any use of the information to criminally investigate or prosecute any alcohol or drug abuse patient.[facility] the event this information is protected by the Federal Confidentiality of Alcohol and Drug Abuse Patient Records regulations: The Federal rules restrict any use of the information to criminally investigate or prosecute any alcohol or drug abuse patient.[facility] the event this information is protected by the Federal Confidentiality of Alcohol and Drug Abuse Patient Records regulations: The Federal rules restrict any use of the information to criminally investigate or prosecute any alcohol or drug abuse patient.[facility] the event this information is protected by the Federal Confidentiality of Alcohol and Drug Abuse Patient Records regulations: The Federal rules restrict any use of the information to criminally investigate or prosecute any alcohol or drug abuse patient.[facility] FOR RECORDS PERTAINING TO PATIENTS WHO ARE [...] BE BASED ON THE PRIMARY CLINICAL RECORDS. [facility]. provides no warranty or guarantee of the accuracy or completeness of information in this document.
--- NOTE | 2024-11-17 07:19 | US_ITS ---
The [address] [address] Patient Name: PETEY WADSWORTH MRN: [id number] date: 1985 Sex: M Assigned Patient Location: ER Current Patient Location: ER Accession/Order Number: [id number] Exam Date: 11/17/2024 08:16 Report Date: 11/17/2024 08:21 At the request of: ALAN REHMAN MD Procedure: US scrotum doppler Scrotal ultrasound Reason for exam: Left-sided pain and swelling. Comparison: none Technique: Grayscale, color Doppler and spectral Doppler images of the scrotal contents were obtained. Findings: Right testicle measures 5.4 x 3.1 x 3.0 cm. No evidence of testicular mass or microlithiasis. Normal arterial and venous Doppler waveforms. Epididymis appears unremarkable. No hydrocele. Right-sided varicocele. Left testicle measures 5.5 x 3.5 x 3.0 cm. No evidence of testicular mass or microlithiasis. Normal arterial and venous Doppler waveforms. Epididymis appears unremarkable. No hydrocele. Left-sided varicocele. Small amount of fluid is seen within the scrotal sac. On cine imaging, this may relate to a inguinal hernia. US/US scrotum doppler Impression: No acute findings. Small amount of fluid seen within the scrotal sac. On cine imaging, this may be related to a inguinal hernia. Correlation with physical exam is suggested. Bilateral varicoceles. Impression dictated by: Chele De Paz Jr., D.O. 11/17/2024 8:21 AM Dictation Location: [employer] Electronically authenticated by: [id number] Date: 11/17/2024 08:21
--- NOTE | 2024-11-17 07:22 | ED.GENADUL1 ---
HPI HPI - General Adult General Chief complaint: Urogenital-Male Stated complaint: ABDOMINAL & GROIN PAIN, NAUSEA Time Seen by Provider: 11/17/24 07:09 Source: patient Mode of arrival: walk-in Limitations: no limitations History of Present Illness HPI narrative: 39-year-old male presents for left testicular pain and swelling. He states it started last night after he went to bed and there was no injury. He is not worried about an STD. No dysuria or hematuria. The pain is moderate and it is made him somewhat nauseous. He has never had pain like this before and the right side does not hurt at all. Related Data Home Medications ?Medication ?Instructions ?Recorded ?Confirmed No Known Home Medications 03/19/24 03/19/24 Allergies Allergy/AdvReac Type Severity Reaction Status Date / Time No Known Drug Allergies Allergy Verified 03/19/24 16:21 Opioid HPI Opioid Management Most Recent Opioid Data: Last Pain Scale 8 Today, 07:10 Review of Systems ROS Narrative A ten point review of systems is negative except as noted above. [facility], [facility] Medical History (Updated 11/17/24 @ 08:29 by Santi Green MD) Phlebitis and thrombophlebitis of superficial vessels of right lower extremity ?I80.01 - Phlebitis and thrombophlebitis of superficial vessels of right lower extremity (ICD-10) Phlebitis and thrombophlebitis of superficial vessels of left lower extremity ?I80.02 - Phlebitis and thrombophlebitis of superficial vessels of left lower extremity (ICD-10) Hernia ?K46.9 - Unspecified abdominal hernia without obstruction or gangrene (ICD-10) Varicose veins of bilateral lower extremities with pain ?I83.813 - Varicose veins of bilateral lower extremities with pain (ICD-10) Surgical History (Updated 05/02/24 @ 12:56 by Basilio Linn) Status post laser ablation of incompetent vein ?Z98.890 - Other specified postprocedural states (ICD-10) Status post laser ablation of incompetent vein ?Z98.890 - Other specified postprocedural states (ICD-10) H/O hernia repair ?Z98.890 - Other specified postprocedural states (ICD-10) ?Z87.19 - Personal history of other diseases of the digestive system (ICD-10) Family History (Updated 03/19/24 @ 15:36 by Basilio Linn) Other Family history of CHF (congestive heart failure) Family history of diabetes mellitus Family history of hypertension Family history of myocardial infarction Pain due to varicose veins of both lower extremities Social History (Updated 03/19/24 @ 15:35 by Basilio Linn) Within the past year, how often did you have a drink containing alcohol: 2-4 times a month Smoking status: Never smoker Non-prescribed substance use: denies use Exam Narrative Exam Narrative: Nurses note and vital signs reviewed and patient is not hypoxic. General: The patient appears in no apparent distress. Skin: Warm, dry, no pallor noted. There is no rash noted. Head: Normocephalic, atraumatic Eye: Normal conjunctiva, no drainage Ears, Nose, Mouth, and Throat: oral mucosa is moist. Nares patent. Cardiovascular: Regular Rate and Rhythm Respiratory: Patient is in no distress, no accessory muscle use, lungs are clear to auscultation, no wheezing, rales or rhonchi Back: non-tender GI: Soft and nontender. No masses : No inguinal adenopathy or masses. The right testicle is of normal size. The left is significantly enlarged compared to the right. He has tenderness on palpation. No skin lesions. Musculoskeletal: The patient has no evidence of calf tenderness, no pitting edema, symmetrical pulses noted bilaterally Neurological: A&O, normal speech Psychiatric: Cooperative Constitutional Vital Signs, click to edit/add: Last Vital Signs Temp 97.6 F 11/17/24 07:05 Pulse 73 11/17/24 07:05 Resp 18 11/17/24 07:05 BP 166/93 H 11/17/24 07:05 Pulse Ox 99 11/17/24 07:05 O2 Del Method Room Air 11/17/24 07:05 Course Vital Signs Vital signs: Vital Signs Temperature 97.6 F 11/17/24 07:05 Pulse Rate 73 11/17/24 07:05 Respiratory Rate 18 11/17/24 07:05 Blood Pressure 166/93 H 11/17/24 07:05 Pulse Oximetry 99 11/17/24 07:05 Oxygen Delivery Method Room Air 11/17/24 07:05 Temperature 97.6 F 11/17/24 07:05 Pulse Rate 73 11/17/24 07:05 Respiratory Rate 18 11/17/24 07:05 Blood Pressure 166/93 H 11/17/24 07:05 Pulse Oximetry 99 11/17/24 07:05 Oxygen Delivery Method Room Air 11/17/24 07:05 Medical Decision Making MDM Narrative Medical decision making narrative: Ultrasound per radiologist suggests inguinal hernia. No evidence of epididymitis or torsion. He was referred to general surgery. Treatment diagnosis and follow-up were discussed with the patient. Differential Diagnosis Differential Diagnosis: Testicular torsion, epididymitis, hernia, hydrocele, varicocele Lab Data Lab results reviewed: Yes I reviewed the patient's lab results Labs: Lab Results 11/17/24 Range/Units 07:31 Urine Color Lt. yellow (YELLOW) Urine Clarity Clear (CLEAR) Urine pH 6.0 (5.0-9.0) Ur Specific [place] 1.020 (1.005-1.025) Urine Protein Negative (NEG/TRACE) mg/dL Urine Glucose (UA) Negative (NEGATIVE) mg/dL Urine Ketones Negative (NEGATIVE) mg/dL Urine Occult Blood Negative (NEGATIVE) Urine Nitrite Negative (NEGATIVE) Urine Bilirubin Negative (NEGATIVE) Urine Urobilinogen 0.2 (0.2-1.0) EU/dL Ur Leukocyte Esterase Negative (NEGATIVE) Urine RBC 0-2 (0-2) #/HPF Urine WBC None seen (NONE SEEN) #/HPF Ur Squamous Epith Cells Rare (NONE/RARE) #/LPF Urine Crystals None seen (None Seen) #/HPF Urine Bacteria Trace A (NONE SEEN) #/HPF Urine Casts None seen (NONE SEEN) #/LPF Urine Mucus Trace A (NONE SEEN) Ur Culture Indicated? No Imaging Data Scrotal ultrasound: Radiologist's impression: ITS Impressions Scrotum Ultrasound 11/17/24 07:19 Impression: No acute findings. Small amount of fluid seen within the scrotal sac. On cine imaging, this may be related to a inguinal hernia. Correlation with physical exam is suggested. Bilateral varicoceles. Impression dictated by: Chele De Paz Jr., D.O. 11/17/2024 8:21 AM Dictation Location: [employer] Electronically authenticated by: [id number] Y Date: 11/17/2024 08:21 Discharge Plan Discharge Chief Complaint: Urogenital-Male Clinical Impression: Inguinal hernia, left Patient Disposition: Home, Self-Care Time of Disposition Decision: 08:29 Condition: Good Mode of Transportation: Private Vehicle Prescriptions / Home Meds: No Action No Known Home Medications Print Language: Beninese Instructions: Inguinal Hernia (ED) Referrals: SALLY WARE [Primary Care Provider, Family Practice] - 1 week Zbigniew Parker MD [Physician, General Surgery] Zbigniew Albright MD [Physician, General Surgery]
[2024-11-17 07:50] LABS: Glucose Urine UA NEGATIVE (NEGATIVE)
[2024-11-17 07:57] LABS: Cast Seen? NONE SEEN #/LPF (NONE SEEN); Crystals Seen? None Seen #/HPF (None Seen); Urine Culture Indicated NO
== END 2024-11-17 08:43 | disposition home or self-care (01) ==
PROVIDERS: Emergency Provider Emergency Medicine; PCP Family Medicine
DX: K40.30 Unilateral inguinal hernia, with obstruction, without gangrene, not specified as recurrent (principal); N50.812 Left testicular pain; R11.0 Nausea; N49.2 Inflammatory disorders of scrotum
CPT/HCPCS: 76870; 81001; 93976; 99284